=== PATIENT | male | born 1965 | race Hispanic/Latino ===

== ENCOUNTER 2016-11-27 08:01 | Emergency (ER) | payer BC ==
[2016-11-27 08:01] VITALS: BMI 29.6
--- NOTE | 2016-11-27 08:19 | ED PDOC ---
Arrival/HPI - General Chief Complaint: Chest Pain Time Seen by Provider: 11/27/16 08:04 Historian: Patient - History of Present Illness Narrative History of Present Illness (Text): 11/27/16 08:42 A 51 year old male, whose past medical history includes gastritis, IBS and hypothyroidism, presents to the emergency department complaining of epigastric pain that radiated up to the chest x 2 days (November 25). Pain is described as "if someone charged him with a football helmet." He reports that he feels like " food is getting stuck." He notes associated nausea and subjective fevers, but denies any vomiting, diarrhea, shortness of breath, urinary changes or other complaints at this time. Patient mentions pain is similar to previous episodes but is more severe this time. PMD: Dr. Medrano/ Dr. Muse Resin Filterer: Dr. Loera 11/27/16 09:49 11/27/16 14:54 Time/Duration: Other (48 hours) Symptom Onset: Sudden Symptom Course: Unchanged Quality: Other Activities at Onset: Rest Context: Home Past Medical History - Provider Review Nursing Documentation Reviewed: Yes - Infectious Disease Hx of Infectious Diseases: None - Tetanus Immunization Tetanus Immunization: Unknown - Cardiac Hx Cardiac Disorders: Yes Hx Cardiac Arrhythmia: Yes Hx Hypertension: Yes Hx Mitral Valve Prolapse: Yes - Pulmonary Hx Respiratory Disorders: Yes Hx Asthma: Yes - Neurological Hx Neurological Disorder: Yes Hx Dizziness: Yes - HEENT Hx HEENT Disorder: Yes - Renal Hx Renal Disorder: No - Endocrine/Metabolic Hx Endocrine Disorders: Yes Hx Hypothyroidism: Yes - Hematological/Oncological Hx Blood Disorders: No - Integumentary Hx Dermatological Disorder: No - Musculoskeletal/Rheumatological Hx Musculoskeletal Disorders: Yes Hx Falls: Yes Hx Fractures: Yes (left rib) - Gastrointestinal Hx Gastrointestinal Disorders: Yes Hx Gastritis: Yes (w/erosions in esophagus) Hx Gastroesophageal Reflux: Yes Hx Gastrointestinal Ulcer: Yes Other/Comment: H. Pylori, IBS, biliary colic - Genitourinary/Gynecological Hx Genitourinary Disorders: No - Psychiatric Hx Psychophysiologic Disorder: Yes Hx Anxiety: Yes Hx Depression: Yes Hx Substance Use: No Other/Comment: insomnia - Past Surgical History Past Surgical History: No Previous - Surgical History Hx Cardiac Catheterization: Yes - Anesthesia Hx Anesthesia: Yes Hx Anesthesia Reactions: No Hx Malignant Hyperthermia: No - Suicidal Assessment Feels Threatened In Home Enviroment: No Family/Social History - Physician Review Nursing Documentation Reviewed: Yes Family/Social History: Unknown Family HX Smoking Status: Former Smoker Hx Alcohol Use: Yes (OCCASIONAL.LAST DRANK AUGUST 2015 BEER) Hx Substance Use: No Hx Substance Use Treatment: No Allergies/Home Meds Allergies/Adverse Reactions: Allergies aspirin Allergy (Verified 11/27/16 08:08) stomach inflammation stomach inflammation Penicillins Allergy (Verified 11/27/16 08:08) ANAPHYLAXIS Home Medications: Home Meds Medication Instructions Recorded Confirmed ALPRAZolam [Xanax] 0.25 mg PO DAILY 02/08/16 05/08/16 Zolpidem [Ambien] 5 mg PO HS PRN 02/08/16 05/08/16 Pantoprazole Sodium [Protonix] 40 mg PO PRN PRN 05/08/16 05/08/16 Review of Systems - Review of Systems Constitutional: Fevers (subjective) Eyes: absent: Vision Changes ENT: absent: Sinus Congestion Respiratory: absent: SOB, Cough, Sputum, Wheezing Cardiovascular: absent: Chest Pain, Palpitations, Edema, Calf Pain, Orthopnea, Syncope Gastrointestinal: Abdominal Pain, Nausea. absent: Diarrhea, Vomiting Genitourinary Male: Dysuria. absent: Urinary Output Changes Musculoskeletal: absent: Back Pain, Neck Pain Skin: absent: Rash Neurological: absent: Headache, Dizziness Endocrine: absent: Polyuria Psychiatric: absent: Depression Physical Exam Vital Signs Reviewed: Yes Vital Signs Temp Pulse Resp BP Pulse Ox 11/27/16 13:23 67 18 142/75 99 11/27/16 12:08 65 18 149/79 100 11/27/16 10:36 58 L 18 129/77 100 11/27/16 08:27 98.3 F 70 18 127/74 96 Temperature: Afebrile Blood Pressure: Normal Pulse: Regular Respiratory Rate: Normal Appearance: Positive for: Well-Appearing, Non-Toxic, Comfortable Pain Distress: None Mental Status: Positive for: Alert and Oriented X 3 - Systems Exam Head: Present: Atraumatic, Normocephalic Pupils: Present: PERRL Extroacular Muscles: Present: EOMI Conjunctiva: Present: Normal Mouth: Present: Moist Mucous Membranes Neck: Present: Normal Range of Motion Respiratory/Chest: Present: Clear to Auscultation, Good Air Exchange. No: Respiratory Distress, Accessory Muscle Use Cardiovascular: Present: Regular Rate and Rhythm, Normal S1, S2. No: Murmurs Abdomen: Present: Normal Bowel Sounds. No: Tenderness, Distention, Peritoneal Signs, Rebound, Guarding Back: Present: Normal Inspection Upper Extremity: Present: Normal Inspection. No: Cyanosis, Edema Lower Extremity: Present: Normal Inspection. No: Edema Neurological: Present: GCS=15, CN II-XII Intact, Speech Normal Skin: Present: Warm, Dry, Normal Color. No: Rashes Psychiatric: Present: Alert, Oriented x 3, Normal Insight, Normal Concentration Medical Decision Making ED Course and Treatment: 11/27/16 08:42 Impression: A 51 year old male with epigastric pain radiating up to the chest. Considered cardiac but unlikely due to symptoms x 2 days and that it is associated with nausea and epigastric pain. Patient reports hx of similar problems. Physical examination reveals no acute findings. Differential Diagnosis include but are not limited to: GERD vs. ACS vs. gastritis Plan: -- EKG -- Chest X-ray -- Labs -- Pepcid and Aspirin -- Reassess and disposition Prior Visits: Notes and results from previous visits were reviewed. The patient last presented to the emergency department on 05/08/16 for evaluation of abdominal pain, for which he had a Abdomen/Pelvis CT which showed no evidence for bowel herniation, bowel obstruction, colitis, appendicitis or diverticulitis. No gross ureteral stone or obstructive uropathy is visualized. Based on documentation from 02/10/16, Dr. Gandhi performed a echo and nuclear stress test which were negative. Patient also had a cardiac cath in 2012, which disclosed intimal irregularities. Progress Notes: EKG: Ordered, reviewed, and independently interpreted the EKG. Rate : 73 BPM Rhythm : NSR Interpretation : normal intervals; no ST/T changes. 11/27/16 09:26 Abdomen/Pelvis CT ordered. 11/27/16 09:30 Chest X-ray: Creator : Gucci Barrera MD COMPARISON: 02/08/2016 FINDINGS: LUNGS: No active pulmonary disease. PLEURA: No significant pleural effusion identified, no pneumothorax apparent. CARDIOVASCULAR: Normal. OSSEOUS STRUCTURES: No significant abnormalities. VISUALIZED UPPER ABDOMEN: Normal. OTHER FINDINGS: None. IMPRESSION: No active disease. 11/27/16 09:51 Labs including lipase and CMP grossly normal. Trop negative. 11/27/16 10:40 Dr. Muse called about patient. Reports that these symptoms have been persistent x 1 month. Reports if negative workup can be discharged to follow- up with him and GI. 11/27/16 11:06 Abdomen/Pelvis CT: Creator : Kenny Zuñiga MD COMPARISON: 05/08/2016 FINDINGS: LOWER THORAX: Unremarkable. LIVER: Unremarkable. No gross lesion or ductal dilatation. GALLBLADDER AND BILE DUCTS: Unremarkable. PANCREAS: Unremarkable. No gross lesion or ductal dilatation. SPLEEN: Unremarkable. ADRENALS: Unremarkable. No mass. KIDNEYS AND URETERS: 10 mm cortical cyst lower pole right kidney. Unchanged. No other renal mass. No renal calculus or hydronephrosis. VASCULATURE: Unremarkable. No aortic aneurysm. BOWEL: Scattered colonic diverticulae. No bowel obstruction. APPENDIX: Normal appendix. PERITONEUM: Unremarkable. No free fluid. No free air. LYMPH NODES: Unremarkable. No enlarged lymph nodes. BLADDER: Unremarkable. REPRODUCTIVE: Normal prostate BONES: No acute fracture. OTHER FINDINGS: None. IMPRESSION: Unremarkable abdominal/ pelvic CT. Stable small right lower pole renal cortical cyst. Scattered colonic diverticulae. Otherwise unremarkable. Bone of the about so among capping the nodes up 11/27/16 11:15 Abdominal ultrasound from 11/10/16 is "unremarkable study." Endoscopy from shows reflux esophagitis, gastritis, duodenitis and reflux 11/27/16 11:20 Patient notes persistent pain. He states he is compliant Protonix and Prilosec but it is not helping him. He says pain is currently under bilateral sides of the diaphragm. Will order u/s to r/o biliary colic. 11/27/16 13:10 Abdomen Ultrasound: Creator : Kenny Zuñiga MD COMPARISON: None. FINDINGS: LIVER: Measures 14.0 cm. Normal echogenicity of the liver parenchyma. No mass. No intrahepatic bile duct dilatation. GALLBLADDER: Unremarkable. No gallstones. COMMON BILE DUCT: Measures 3 mm. No stones. No dilatation. PANCREAS: Unremarkable as visualized. No mass. No ductal dilatation. RIGHT KIDNEY: Measures 10.7cm. Normal echogenicity. No calculus, mass, or hydronephrosis. LEFT KIDNEY: Measures 10.1cm. Normal echogenicity. No calculus, mass, or hydronephrosis. SPLEEN: Normal in size and contour. No mass. AORTA: No aneurysmal dilatation. IVC: Unremarkable. OTHER FINDINGS: None. IMPRESSION: Unremarkable abdominal sonogram. Patient is tolerating po. Had extensive conversation with patinet and he admits that these symptoms have been persistent x months. He has GI and PMD follow-up. (Dr. Muse tomorrow and GI on thursday). He was also instructed on the importance of regular cardiac follow-up. He reports that he will continue prevacid and protonix and eating appropriate diet. - Lab Interpretations Lab Results: 11/27/16 08:40 11/27/16 08:40 Lab Results 11/27/16 08:40: Sodium 137, Potassium 4.1, Chloride 100, Carbon Dioxide 25, Anion Gap 16, BUN 12, Creatinine 0.9, Est GFR ( Amer) > 60, Est GFR (Non- Af Amer) > 60, Random Glucose 141 H, Calcium 9.4, Phosphorus 3.0, Magnesium 2.0 , Total Bilirubin 0.9, AST 25, ALT 32, Alkaline Phosphatase 25 L, Total Creatine Kinase 60, Troponin I < 0.01, Total Protein 8.4 H, Albumin 4.4, Globulin 4.0, Albumin/Globulin Ratio 1.1, Lipase 42 11/27/16 08:40: WBC 9.2, RBC 5.16, Hgb 15.1, Hct 43.8, MCV 84.9, MCH 29.3, MCHC 34.5, RDW 12.5, Plt Count 229, MPV 10.1, Gran % 79.0 H, Lymph % (Auto) 15.4 L, [place] % (Auto) 5.0, Eos % (Auto) 0.4 L, Baso % (Auto) 0.2, Gran # 7.24 H, Lymph # 1.4, [place] # 0.5, Eos # 0.0, Baso # 0.02 I have reviewed the lab results: Yes - RAD Interpretation Radiology Orders: 11/27/16 08:28 CHEST PORTABLE [RAD] Stat 11/27/16 09:26 ABD & PELVIS IV CONTRAST ONLY [CT] Stat 11/27/16 11:21 ABDOMEN COMPLETE [US] Stat - Medication Orders Current Medication Orders: Discontinued Medications Al Hydrox/Mg Hydrox/Simethicone (Maalox Plus 30 Ml) 30 ml PO STAT STA Stop: 11/27/16 11:14 Last Admin: 11/27/16 11:48 Dose: 30 ml Aspirin (Aspirin Chewable) 324 mg PO STAT STA Stop: 11/27/16 08:29 Last Admin: 11/27/16 08:50 Dose: 324 mg Famotidine (Pepcid) 20 mg IVP STAT STA Stop: 11/27/16 08:30 Last Admin: 11/27/16 08:49 Dose: 20 mg Iohexol (Omnipaque 350 100 Ml) Confirm Administered Dose 350 mg .ROUTE .STK-MED ONE Stop: 11/27/16 09:30 Ondansetron HCl (Zofran Inj) 4 mg IVP STAT STA Stop: 11/27/16 09:04 Last Admin: 11/27/16 09:24 Dose: 4 mg - Renaibe Statement The provider has reviewed the documentation as recorded by the Eric Parson Provider Scribe Attestation: All medical record entries made by the Eric were at my direction and personally dictated by me. I have reviewed the chart and agree that the record accurately reflects my personal performance of the history, physical exam, medical decision making, and the department course for this patient. I have also personally directed, reviewed, and agree with the discharge instructions and disposition. Disposition/Present on Arrival - Present on Arrival Any Indicators Present on Arrival: No History of DVT/PE: No History of Uncontrolled Diabetes: No Urinary Catheter: No History of Decub. Ulcer: No History Surgical Site Infection Following: None - Disposition Have Diagnosis and Disposition been Completed?: Yes Diagnosis: Gastritis Disposition: HOME/ ROUTINE Disposition Time: 13:11 Patient Plan: Discharge Condition: GOOD Discharge Instructions (ExitCare): Gastritis (ED), Diet for Ulcers and Gastritis (ED), Gastroesophageal Reflux Disease (ED) Additional Instructions: Follow up with Dr. Muse within 2 days. Follow-up with GI within 2 days. Return to emergency department if condition worsens. Take medications as prescribed.
[2016-11-27 08:30] VITALS: RESP 18; TEMP 98.3
[2016-11-27 08:58] LABS: BASO # 0.02 K/mm3 (0.0-2.0); BASO % 0.2 % (0.0-3.0); EOS % 0.4 % (1.5-5.0); GRAN # 7.24 (1.4-6.5); HEMOGLOBIN 15.1 gm/dL (14.0-18.0); LYMPH # 1.4 (1.2-3.4); LYMPH % 15.4 % (22.0-35.0); MEAN CELL VOLUME 84.9 fL (80.0-105.0); MEAN CORPUSCULAR HEMOGLOBIN 29.3 pg (25.0-35.0); MEAN CORPUSCULAR HGB CONC 34.5 g/dl (31.0-37.0); MEAN PLATELET VOLUME 10.1 fl (7.0-11.0); MONO # 0.5 (0.1-0.6); PLATELET COUNT 229 10^3/uL (120.0-450.0); RBC 5.16 10^6/uL (3.5-6.1); RED CELL DISTRIBUTION WIDTH 12.5 % (11.5-14.5); WHITE BLOOD COUNT 9.2 10^3/ul (4.5-11.0)
[2016-11-27 09:02] LABS: ALB/GLOB RATIO 1.1 (1.1-1.8); ALBUMIN 4.4 g/dL (3.0-4.8); ALT/SGPT 32 U/L (7-56); AST/SGOT 25 U/L (15-59); BLOOD UREA NITROGEN 12 mg/dL (7-21); CALCIUM 9.4 mg/dL (8.4-10.5); GFR AFRICAN-AMERICAN > 60; GFR NON-AFRICAN AMERICAN > 60; LIPASE 42 U/L (23-300)
[2016-11-27 09:21] LABS: TROPONIN I < 0.01 ng/mL
[2016-11-27] MEDS ORDERED: Iohexol 350 MG/100 ML VIAL ONE (09:29)
--- NOTE | 2016-11-27 09:29 | RAD ---
HISTORY: epigastric pain COMPARISON: 02/08/2016 FINDINGS: LUNGS: No active pulmonary disease. PLEURA: No significant pleural effusion identified, no pneumothorax apparent. CARDIOVASCULAR: Normal. OSSEOUS STRUCTURES: No significant abnormalities. VISUALIZED UPPER ABDOMEN: Normal. OTHER FINDINGS: None. IMPRESSION: No active disease.
[2016-11-27] MEDS ORDERED: Alum-Mag Hydrox-Simethicone Susp (30 mL) PO STA (11:13)
--- NOTE | 2016-11-27 12:43 | CT ---
PROCEDURE: CT Abdomen and Pelvis with contrast HISTORY: epigastric pain COMPARISON: 05/08/2016 TECHNIQUE: Contrast dose: 100 mL Omnipaque 350 Radiation dose: Total exam DLP = 890.93 mGy-cm. This CT exam was performed using one or more of the following dose reduction techniques: Automated exposure control, adjustment of the mA and/or kV according to patient size, and/or use of iterative reconstruction technique. FINDINGS: LOWER THORAX: Unremarkable. LIVER: Unremarkable. No gross lesion or ductal dilatation. GALLBLADDER AND BILE DUCTS: Unremarkable. PANCREAS: Unremarkable. No gross lesion or ductal dilatation. SPLEEN: Unremarkable. ADRENALS: Unremarkable. No mass. KIDNEYS AND URETERS: 10 mm cortical cyst lower pole right kidney. Unchanged. No other renal mass. No renal calculus or hydronephrosis. VASCULATURE: Unremarkable. No aortic aneurysm. BOWEL: Scattered colonic diverticulae. No bowel obstruction. APPENDIX: Normal appendix. PERITONEUM: Unremarkable. No free fluid. No free air. LYMPH NODES: Unremarkable. No enlarged lymph nodes. BLADDER: Unremarkable. REPRODUCTIVE: Normal prostate BONES: No acute fracture. OTHER FINDINGS: None. IMPRESSION: Unremarkable abdominal/ pelvic CT. Stable small right lower pole renal cortical cyst. Scattered colonic diverticulae. Otherwise unremarkable. Bone of the about so among capping the nodes up
--- NOTE | 2016-11-27 12:57 | US ---
HISTORY: RUQ pain COMPARISON: None. TECHNIQUE: Sonographic evaluation of the abdomen. FINDINGS: LIVER: Measures 14.0 cm. Normal echogenicity of the liver parenchyma. No mass. No intrahepatic bile duct dilatation. GALLBLADDER: Unremarkable. No gallstones. COMMON BILE DUCT: Measures 3 mm. No stones. No dilatation. PANCREAS: Unremarkable as visualized. No mass. No ductal dilatation. RIGHT KIDNEY: Measures 10.7cm. Normal echogenicity. No calculus, mass, or hydronephrosis. LEFT KIDNEY: Measures 10.1cm. Normal echogenicity. No calculus, mass, or hydronephrosis. SPLEEN: Normal in size and contour. No mass. AORTA: No aneurysmal dilatation. IVC: Unremarkable. OTHER FINDINGS: None. IMPRESSION: Unremarkable abdominal sonogram.
[2016-11-27 13:28] VITALS: BP 142/75; PULSE 67; O2SAT 99
--- NOTE | 2016-11-28 10:02 | CARD ---
APPROVED REPORT EKG Measurement Heart [id number] <Conclusion> Normal sinus rhythm Normal ECG No change
== END 2016-11-27 13:23 | disposition home or self-care (01) ==
LOC: ED 08:01
DX: K29.70 Gastritis, unspecified, without bleeding (principal); K21.9 Gastro-esophageal reflux disease without esophagitis; I10 Essential (primary) hypertension; I34.1 Nonrheumatic mitral (valve) prolapse; Z87.891 Personal history of nicotine dependence
CPT/HCPCS: 71010; 74177; 76700; 80053; 82550; 83690; 83735; 84100; 84484; 85025; 93005; 96374; 96375; 99285; J2405; Q9967

== ENCOUNTER 2017-02-13 13:42 | Inpatient (IN) | payer BC ==
--- NOTE | 2017-02-13 14:02 | ED PDOC ---
Arrival/HPI - General Chief Complaint: Psychiatric Evaluation Time Seen by Provider: 02/13/17 13:59 Historian: Patient - History of Present Illness Narrative History of Present Illness (Text): 02/13/17 14:02 51 y/o male, pmh htn and gerd, psychiatric history including anxiety/depression/ insomnia, allergic to aspirin and penicillin, c/o anxiety/depression and insomnia x 1 week. Pt. stated that he has been having difficulty sleeping as he feels anxious and depression for the past 1 week, used to be on the ambien which his psychiatrist change to the temazepem for the past 2 months with no relief. Pt. stated that he just wants to sleeping, no chest pain or shortness of breath, no homicidal or suicidal ideation, no auditory or visual hallucination, no other medical or psychological complaints. Past Medical History - Provider Review Nursing Documentation Reviewed: Yes - Infectious Disease Hx of Infectious Diseases: None - Tetanus Immunization Tetanus Immunization: Unknown - Cardiac Hx Cardiac Disorders: Yes Hx Cardiac Arrhythmia: Yes Hx Hypertension: Yes Hx Mitral Valve Prolapse: Yes - Pulmonary Hx Respiratory Disorders: Yes Hx Asthma: Yes - Neurological Hx Neurological Disorder: Yes Hx Dizziness: Yes - HEENT Hx HEENT Disorder: Yes - Renal Hx Renal Disorder: No - Endocrine/Metabolic Hx Endocrine Disorders: Yes Hx Hypothyroidism: Yes - Hematological/Oncological Hx Blood Disorders: No - Integumentary Hx Dermatological Disorder: No - Musculoskeletal/Rheumatological Hx Musculoskeletal Disorders: Yes Hx Falls: Yes Hx Fractures: Yes (left rib) - Gastrointestinal Hx Gastrointestinal Disorders: Yes Hx Gastritis: Yes (w/erosions in esophagus) Hx Gastroesophageal Reflux: Yes Hx Gastrointestinal Ulcer: Yes Other/Comment: H. Pylori, IBS, biliary colic - Genitourinary/Gynecological Hx Genitourinary Disorders: No - Psychiatric Hx Psychophysiologic Disorder: Yes Hx Anxiety: Yes Hx Depression: Yes Hx Substance Use: No Other/Comment: insomnia - Past Surgical History Past Surgical History: No Previous - Surgical History Hx Cardiac Catheterization: Yes - Anesthesia Hx Anesthesia: Yes Hx Anesthesia Reactions: No Hx Malignant Hyperthermia: No - Suicidal Assessment Feels Threatened In Home Enviroment: No Family/Social History - Physician Review Nursing Documentation Reviewed: Yes Family/Social History: Unknown Family HX Smoking Status: Former Smoker Hx Alcohol Use: Yes (OCCASIONAL.LAST DRANK AUGUST 2015 BEER) Hx Substance Use: No Hx Substance Use Treatment: No Allergies/Home Meds Allergies/Adverse Reactions: Allergies aspirin Allergy (Verified 11/27/16 08:08) stomach inflammation stomach inflammation Penicillins Allergy (Verified 11/27/16 08:08) ANAPHYLAXIS Home Medications: Home Meds Medication Instructions Recorded Confirmed ALPRAZolam [Xanax] 0.25 mg PO DAILY 02/08/16 02/13/17 Famotidine [Pepcid] 1 tab PO DAILY PRN 02/13/17 02/13/17 Pantoprazole Sodium [Protonix] 1 tab PO DAILY PRN 02/13/17 02/13/17 Temazepam [Restoril] 1 cap PO HS 02/13/17 02/13/17 clonazePAM [Klonopin] 1 tab PO DAILY 02/13/17 02/13/17 Review of Systems - Review of Systems Constitutional: absent: Fatigue, Fevers Eyes: absent: Vision Changes ENT: absent: Hearing Changes Respiratory: absent: SOB, Cough Cardiovascular: absent: Chest Pain Gastrointestinal: absent: Abdominal Pain, Diarrhea, Nausea, Vomiting Skin: absent: Rash, Pruritis Neurological: absent: Headache Psychiatric: Anxiety, Depression, Other (insomnia). absent: Suicidal Ideation Physical Exam Vital Signs Reviewed: Yes Vital Signs Temp Pulse Resp BP Pulse Ox 02/13/17 14:04 98.5 F 82 18 132/90 97 Temperature: Afebrile Blood Pressure: Normal Pulse: Regular Respiratory Rate: Normal Appearance: Positive for: Well-Appearing, Non-Toxic, Comfortable Pain Distress: None Mental Status: Positive for: Alert and Oriented X 3 - Systems Exam Head: Present: Atraumatic, Normocephalic Pupils: Present: PERRL Extroacular Muscles: Present: EOMI Conjunctiva: Present: Normal Mouth: Present: Moist Mucous Membranes Neck: Present: Normal Range of Motion Respiratory/Chest: Present: Clear to Auscultation, Good Air Exchange. No: Respiratory Distress, Accessory Muscle Use Cardiovascular: Present: Regular Rate and Rhythm, Normal S1, S2. No: Murmurs Abdomen: Present: Normal Bowel Sounds. No: Tenderness, Distention, Peritoneal Signs Back: Present: Normal Inspection Upper Extremity: Present: Normal Inspection. No: Cyanosis, Edema Lower Extremity: Present: Normal Inspection. No: Edema Neurological: Present: GCS=15, Speech Normal, Motor Func Grossly Intact, Gait Normal, Memory Normal Skin: Present: Warm, Dry, Normal Color. No: Rashes Psychiatric: Present: Alert, Oriented x 3, Normal Insight, Normal Concentration Medical Decision Making ED Course and Treatment: 02/13/17 14:29 -labs/ua -ekg/cxr -PES paged 02/13/17 15:33 -Labs are non-significant -UA show no UTI -Drug screen show +benzo -Chest x-ray: no active disease -EKG: NSR @ 66 BPM, no ST elevation or depression, no T wave inversion. -Pt. is medically clear and stable for the PES evaluation. -Pt. evaluated by the PES Miriam, dx depression, require inpatient admission treatment to the psychiatric floor. -Case discussed with DR. Vaca, he will put in the admission order. -Pt. agreed to be admitted. - Lab Interpretations Lab Results: 02/13/17 14:11 02/13/17 14:11 Lab Results 02/13/17 15:41: Urine Color Yellow, Urine Appearance Clear, Urine pH 6.0, Ur Specific [place] 1.015, Urine Protein Negative, Urine Glucose (UA) Negative, Urine Ketones Negative, Urine Blood Trace-intact H, Urine Nitrate Negative, Urine Bilirubin Negative, Urine Urobilinogen 0.2, Ur Leukocyte Esterase Negative , Urine RBC Pending, Urine WBC Pending 02/13/17 14:11: WBC 6.3 D, RBC 4.84, Hgb 14.0, Hct 40.3 L, MCV 83.3, MCH 28.9, MCHC 34.7, RDW 12.8, Plt Count 232, MPV 9.6, Gran % 66.3, Lymph % (Auto) 24.0, [place] % (Auto) 9.1 H, Eos % (Auto) 0.3 L, Baso % (Auto) 0.3, Gran # 4.17, Lymph # 1.5, [place] # 0.6, Eos # 0.0, Baso # 0.02 02/13/17 14:11: Salicylates < 1 L, Acetaminophen < 10.0 L 02/13/17 14:11: Free T4 1.15, TSH 3rd Generation 1.67, Alcohol, Quantitative < 10 02/13/17 14:11: Urine Opiates Screen Negative, Urine Methadone Screen Negative, Ur Barbiturates Screen Negative, Ur Phencyclidine Scrn Negative, Ur Amphetamines Screen Negative, U Benzodiazepines Scrn Positive H, U Oth Cocaine Metabols Negative, U Cannabinoids Screen Negative 02/13/17 14:11: Sodium 140, Potassium 3.9, Chloride 104, Carbon Dioxide 24, Anion Gap 16, BUN 8, Creatinine 0.8, Est GFR ( Amer) > 60, Est GFR (Non- Af Amer) > 60, Random Glucose 120 H, Calcium 9.4, Total Bilirubin 0.4, AST 20, ALT 26, Alkaline Phosphatase 25 L, Total Protein 7.6, Albumin 4.2, Globulin 3.4 , Albumin/Globulin Ratio 1.2 I have reviewed the lab results: Yes Interpretation: No clinic. lab abnormalty - RAD Interpretation Radiology Orders: 02/13/17 14:14 CHEST PORTABLE [RAD] Stat no active pulmonary disease Order Make Up Clerk: Radiologist - EKG Interpretation EKG Interpretation (Text): 02/13/17 15:14 -EKG: NSR @ 66 BPM, no ST elevation or depression, no T wave inversion. Interpreted by ED Physician: Yes Type: 12 lead EKG - PA / INSTRUCTOR [employer]OLLEY [employer] / Resident Statement MD/DO has reviewed & agrees with the documentation as recorded. Disposition/Present on Arrival - Present on Arrival Any Indicators Present on Arrival: No History of DVT/PE: No History of Uncontrolled Diabetes: No Urinary Catheter: No History of Decub. Ulcer: No History Surgical Site Infection Following: None - Disposition Have Diagnosis and Disposition been Completed?: Yes Diagnosis: Major depression Disposition: HOSPITALIZED Disposition Time: 15:15 Patient Plan: Admission Patient Problems: Current Active Problems Problem Status Onset Major depression Acute Condition: FAIR Referrals: PCP,NO [Primary Care Provider] - Follow up with primary Forms: [employer] (Croatian)
[2017-02-13 14:05] VITALS: BMI 27.3
[2017-02-13 14:44] LABS: BASO # 0.02 K/mm3 (0.0-2.0); BASO % 0.3 % (0.0-3.0); EOS % 0.3 % (1.5-5.0); GRAN # 4.17 (1.4-6.5); GRAN % 66.3 % (50.0-68.0); HEMATOCRIT 40.3 % (42.0-52.0); LYMPH # 1.5 (1.2-3.4); MEAN CELL VOLUME 83.3 fl (80.0-105.0); MEAN CORPUSCULAR HEMOGLOBIN 28.9 pg (25.0-35.0); MEAN CORPUSCULAR HGB CONC 34.7 g/dl (31.0-37.0); MEAN PLATELET VOLUME 9.6 fl (7.0-11.0); MONO # 0.6 (0.1-0.6); MONO % 9.1 % (1.0-6.0); RED CELL DISTRIBUTION WIDTH 12.8 % (11.5-14.5); WHITE BLOOD COUNT 6.3 10^3/ul (4.5-11.0)
[2017-02-13 14:56] LABS: ALB/GLOB RATIO 1.2 (1.1-1.8); ALKALINE PHOSPHATASE 25 U/L (38-126); ALT/SGPT 26 U/L (7-56); AST/SGOT 20 U/L (17-59); BILIRUBIN,TOTAL 0.4 mg/dL (0.2-1.3); BLOOD UREA NITROGEN 8 mg/dL (7-21); CALCIUM 9.4 mg/dL (8.4-10.5); CARBON DIOXIDE 24 mmol/L (21-33); CHLORIDE 104 mmol/L (98-107); GFR AFRICAN-AMERICAN > 60; GLUCOSE,RANDOM 120 mg/dL (70-110); POTASSIUM 3.9 mmol/L (3.6-5.0); SODIUM 140 mmol/L (132-148); TOTAL PROTEIN 7.6 g/dL (5.8-8.3)
[2017-02-13 15:05] LABS: ALCOHOL SERUM < 10 mg/dL (0-10)
[2017-02-13 15:13] LABS: FREE T4 1.15 ng/dL (0.78-2.19)
--- NOTE | 2017-02-13 15:23 | RAD ---
HISTORY: medical clearance COMPARISON: 11/27/2016 FINDINGS: LUNGS: No active pulmonary disease. PLEURA: No significant pleural effusion identified, no pneumothorax apparent. CARDIOVASCULAR: Normal. OSSEOUS STRUCTURES: No significant abnormalities. VISUALIZED UPPER ABDOMEN: Normal. OTHER FINDINGS: None. IMPRESSION: No active pulmonary disease.
[2017-02-13 15:27] LABS: THYROID STIMULATING HORMONE 1.67 mIU/mL (0.46-4.68)
[2017-02-13 15:43] LABS: URINE BILIRUBIN NEGATIVE (NEGATIVE); URINE BLOOD TRACE-INTACT (NEGATIVE); URINE GLUCOSE (UA) NEGATIVE (NEGATIVE); URINE KETONE NEGATIVE (NEGATIVE); URINE LEUKOCYTE ESTERASE NEGATIVE Leu/uL (NEGATIVE); URINE PROTEIN NEGATIVE mg/dL (<30 mg/dL); URINE UROBILINOGEN 0.2 E.U./dL (<1 E.U./dL)
[2017-02-13 15:44] LABS: URINE APPEARANCE CLEAR (CLEAR); URINE COLOR YELLOW (YELLOW)
[2017-02-13 16:39] LABS: URINE BACTERIA FEW (NEG); URINE WBC 0 - 2 /hpf (0-6)
--- NOTE | 2017-02-13 18:16 | PCM.BM ---
Treatment Plan Problems - Problems identified on initial assessmt feeling of worthlessness Date Initiated: 02/13/17 Time Initiated: 18:00 Assessment reference: NA Status: Active Priority: 1 hopelessness/helplessness Date Initiated: 02/13/17 Time Initiated: 18:00 Assessment reference: NA Status: Active Priority: 2 altererd sleep pattern Date Initiated: 02/13/17 Time Initiated: 18:00 Assessment reference: NA Status: Active Priority: 3 ineffective coping Date Initiated: 02/13/17 Time Initiated: 18:00 Assessment reference: NA Status: Active Priority: 4 social isolation Date Initiated: 02/13/17 Time Initiated: 18:00 Assessment reference: NA Status: Active Priority: 5 Treatment assets and liabiliti Patient Assests: cooperative, ADL independent, negotiates basic needs Patient Liabilities: live alone, poor support system - Milieu Protocol Maintain good personal hygiene: daily Encourage regular showers, daily Remind patient to perform daily oral care, daily Assist patient to perform ADL's Conduct patient checks and document Observation sheet: Q15 minutes Maintain personal safety: every shift Educate patient to report safety concerns to staff, every shift Monitor environment for contraband/sharps Medication safety: Monitor for expected outcome, potential side effects: every shift, Assess barriers to learning: every shift, Assess readiness for medication education: every shift Family Contact - Goals for Treatment Patient goals for treatment: adjustment of his medication Discharge/Continuing Care - Education Needs Education Needs: Patient Medication, Patient Diagnosis/Disease Process, Patient Coping Skills, Patient Community resources - Discharge Discharge Criteria: Tolerates medication w/o severe side effects, Normal sleep pattern
[2017-02-13] MEDS ORDERED: Alum-Mag Hydrox-Simethicone Susp (30 mL) PO PRN (19:40)
[2017-02-14] MEDS: Pantoprazole 40 mg EC Tab PO SCH (06:51)
[2017-02-14 07:57] LABS: CHOLESTEROL 203 mg/dL (130-200); GLUCOSE,FASTING 95 mg/dL (65-110)
[2017-02-14 08:08] LABS: FREE T4 1.23 ng/dL (0.78-2.19)
[2017-02-14 08:22] LABS: THYROID STIMULATING HORMONE 1.6 mIU/mL (0.46-4.68)
--- NOTE | 2017-02-14 08:51 | PCM.PSYCH ---
Initial Psychiatric Evaluation - Initial Psychiatric Evaluation Type of Admission: Voluntary Legal Status: Capacity History of Present Illness and Precipitating Events: Patient is a 51 y/o single white male with history of depression and anxiety, no prior psychiatric admissions, no history of SA, in outpatient treatment with Dr. Gómez Diggs x 1 month, compliant with prescribed Xanax and Restoril who presented to ER complaining of anxiety and depression and unrelenting insomnia for the past week. I met with patient to bed so and he is calm, cooperative and well oriented to month, year, location and circumstances. Grooming is adequate. Patient reports that he has been depressed with symptoms of lability anhedonia, insomnia, crying spells, poor frustration tolerance and hopelessness. 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 Major stressors include his concern over his medical health. He feels that his anxiety in this respect is overwhelming, debilitating and out of control. Patient has been taking xanax and restoril with minimal improvement for the past month. Sleep was still restless last night with currently prescribed medications on the unit however he denies any side effects. Thought process is generally coherent and affect is constricted. Patient denies any perceptual disturbance and he is not suicidal or homicidal. Delusions we're not elicited. There were no behavioral issues overnight. PSYCHIATRIC HISTORY No prior psychiatric hospitalizations No history of suicide attempts. Patient has been in psychiatric care with Dr. Gómez Diggs x1 month. Prescribed xanax and restoril. SOCIAL HISTORY Born and raised in [place]. Patient is single and he has no children. He lives by himself in an apartment. He graduated high school. 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 Patient has applied for disability. Patient denies any tobacco drug or alcohol use. . Current Medications: Active Medications Generic Name Dose Route Start Last Admin Trade Name Freq PRN Reason Stop Dose Admin Acetaminophen 650 mg 02/13/17 16:57 02/13/17 18:52 Tylenol 325mg Tab PO 650 mg Q6H PRN Administration Pain, moderate (4-7) Al Hydrox/Mg Hydrox/Simethicone 30 ml 02/13/17 19:40 02/13/17 20:19 Maalox Plus 30 Ml PO 30 ml DAILY PRN Administration Indigestion / Heartburn Clonazepam 0.5 mg 02/13/17 22:00 02/13/17 22:19 Klonopin PO 0.5 mg [facility] LILIANE Administration Protocol Lorazepam 2 mg 02/13/17 18:17 Ativan PO Q8H PRN Anxiety Protocol Lorazepam 2 mg 02/13/17 18:19 Ativan IM Q8H PRN Agitation Protocol Mirtazapine 30 mg 02/13/17 22:00 02/13/17 22:19 Remeron PO 30 mg HS LILIANE Administration Pantoprazole Sodium 40 mg 02/14/17 07:00 Protonix Ec Tab PO 0700 LILIANE Ziprasidone 20 mg 02/13/17 18:18 Geodon Inj IM Q8 PRN Agitation Protocol Past Psychiatric History - Past Psychiatric History Pertinent Medical Hx (Current Medical&Sleep Prob, Allergies): Allergies Allergy/AdvReac Type Severity Reaction Status Date / Time aspirin Allergy stomach Verified 02/13/17 18:23 inflammation Penicillins Allergy ANAPHYLAXIS Verified 02/13/17 18:23 ALPRAZolam [Xanax] 0.25 mg PO DAILY 02/08/16 Sucralfate [Carafate] 1 gm PO TID #6 dose 05/08/16 Famotidine [Pepcid] 1 tab PO DAILY PRN 02/13/17 Pantoprazole Sodium [Protonix] 1 tab PO DAILY PRN 02/13/17 Temazepam [Restoril] 1 cap PO HS 02/13/17 clonazePAM [Klonopin] 1 tab PO DAILY 02/13/17 Mental Status Examination - Personal Presentation Personal Presentation: Looks stated age - Affect Affect: Constricted - Motor Activity Motor Activity: Calm - Reliability in Providing Information Reliability in Providing Information: Fair - Speech Speech: Organized - Mood Mood: Depressed, Anxious - Formal Thought Process Formal Thought Process: No Impairment - Obsessions/Compulsions Obsessions: Yes (MEDICAL PROBLEMS) - Cognitive Functions Orientation: Person, Place, Situation Sensorium: Alert Attention/Concentration: Attentive Estimate of Intelligence: Average Judgement: Imparied, as evidence by: Lack of insight into illness - Risk Risk: Diminished functioning DSM 5 DX - DSM 5 DSM 5 Diagnosis: Major Depression, Severe DEUCE - Recommended/Plan of Treatment Treatment Recommendations and Plan of Treatment: * group, milieu and supportive tx * klonopin 0.5 mg AMHS for anxiety * remeron 30 mg HS for depression and insomnia * Awaiting medical consult * Vitals reviewed and noted below: Selected Entries 02/13/17 02/13/17 02/13/17 14:04 16:26 18:11 Temperature 98.5 F 98.7 F Pulse Rate 82 65 63 Respiratory 18 18 18 Rate Blood Pressure 132/90 129/80 136/100 H O2 Sat by Pulse 97 99 Oximetry ER LABS AND STUDIES 02/13/17 15:33 -Chest x-ray: no active disease -EKG: NSR @ 66 BPM, no ST elevation or depression, no T wave inversion. 02/13/17 15:41: Urine Color Yellow, Urine Appearance Clear, Urine pH 6.0, Ur Specific [place] 1.015, Urine Protein Negative, Urine Glucose (UA) Negative, Urine Ketones Negative, Urine Blood Trace-intact H, Urine Nitrate Negative, Urine Bilirubin Negative, Urine Urobilinogen 0.2, Ur Leukocyte Esterase Negative , Urine RBC Pending, Urine WBC Pending 02/13/17 14:11: WBC 6.3 D, RBC 4.84, Hgb 14.0, Hct 40.3 L, MCV 83.3, MCH 28.9, MCHC 34.7, RDW 12.8, Plt Count 232, MPV 9.6, Gran % 66.3, Lymph % (Auto) 24.0, [place] % (Auto) 9.1 H, Eos % (Auto) 0.3 L, Baso % (Auto) 0.3, Gran # 4.17, Lymph # 1.5, [place] # 0.6, Eos # 0.0, Baso # 0.02 02/13/17 14:11: Salicylates < 1 L, Acetaminophen < 10.0 L 02/13/17 14:11: Free T4 1.15, TSH 3rd Generation 1.67, Alcohol, Quantitative < 10 02/13/17 14:11: Urine Opiates Screen Negative, Urine Methadone Screen Negative, Ur Barbiturates Screen Negative, Ur Phencyclidine Scrn Negative, Ur Amphetamines Screen Negative, U Benzodiazepines Scrn Positive H, U Oth Cocaine Metabols Negative, U Cannabinoids Screen Negative 02/13/17 14:11: Sodium 140, Potassium 3.9, Chloride 104, Carbon Dioxide 24, Anion Gap 16, BUN 8, Creatinine 0.8, Est GFR ( Amer) > 60, Est GFR (Non- Af Amer) > 60, Random Glucose 120 H, Calcium 9.4, Total Bilirubin 0.4, AST 20, ALT 26, Alkaline Phosphatase 25 L, Total Protein 7.6, Albumin 4.2, Globulin 3.4 , Albumin/Globulin Ratio 1.2 FLOOR LABS 02/14/17 02/14/17 07:20 07:20 Fasting Glucose 95 Triglycerides 143 Cholesterol 203 H LDL Cholesterol Direct 144 H HDL Cholesterol 36 Free T4 1.23 TSH 3rd Generation 1.60 - Smoking Cessation Smoking Cessation Initiated: No Reason for not providing: PATIENT DENIES TOBACCO USE
--- NOTE | 2017-02-14 19:34 | CARD ---
APPROVED REPORT EKG Measurement Heart [id number] <Conclusion> Sinus rhythm with marked sinus arrhythmia Otherwise normal ECG
[2017-02-14] MEDS: Hydrocortisone 2.5% Rectal Cream(30 gm) PR SCH (21:36)
[2017-02-14] MEDS: POLYETHYLENE GLYCOL 3350 17 GM/Dose PACKET PO SCH (21:37)
[2017-02-15 06:54] VITALS: O2SAT 100
[2017-02-15] MEDS: Pantoprazole 40 mg EC Tab PO SCH (07:52)
[2017-02-15] MEDS: POLYETHYLENE GLYCOL 3350 17 GM/Dose PACKET PO SCH ×2 (08:10→16:33)
--- NOTE | 2017-02-15 08:57 | PCM.PYCHPN ---
Psychiatric Progress Note - Psychiatric Progress Note Patient seen today, length of contact: 25 min Patient Chief Complaint: "depressed" Problems Identified/Issues Discussed: History of Present Illness and Precipitating Events: Patient is a 51 y/o single white male with history of depression and anxiety, no prior psychiatric admissions, no history of SA, in outpatient treatment with Dr. Gómez Diggs x 1 month, compliant with prescribed Xanax and Restoril who presented to ER complaining of anxiety and depression and unrelenting insomnia for the past week. I met with patient to bed so and he is calm, cooperative and well oriented to month, year, location and circumstances. Grooming is adequate. Patient reports that he has been depressed with symptoms of lability anhedonia, insomnia, crying spells, poor frustration tolerance and hopelessness. 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 Major stressors include his concern over his medical health. He feels that his anxiety in this respect is overwhelming, debilitating and out of control. Patient has been taking xanax and restoril with minimal improvement for the past month. Sleep was still restless last night with currently prescribed medications on the unit however he denies any side effects. Thought process is generally coherent and affect is constricted. Patient denies any perceptual disturbance and he is not suicidal or homicidal. Delusions we're not elicited. There were no behavioral issues overnight. PSYCHIATRIC HISTORY No prior psychiatric hospitalizations No history of suicide attempts. Patient has been in psychiatric care with Dr. Gómez Diggs x1 month. Prescribed xanax and restoril. SOCIAL HISTORY Born and raised in [place]. Patient is single and he has no children. He lives by himself in an apartment. He graduated high school. 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 Patient has applied for disability. Patient denies any tobacco drug or alcohol use. ~~~~~~~~~~~~~~~~~~ I reviewed recent notes and met with patient at bedside. Patient remains well- oriented to circumstances and cooperative with questioning. He is depressed and continues to deny any suicidal thoughts. Future oriented, patient reports motivation to take care of some financial responsibilities upon discharge. His thought process remains clear and connected. Responses are relevant to questioning. He denies any perceptual disturbance. Patient is tolerating his medications and denies any new discomfort or pain. Staff notes indicate that patient has been calm pleasant and cooperative. There were no behavioral issues overnight. Diagnostic Results: Major Depression, Severe DEUCE Medication Change: No Medical Record Reviewed: Yes Mental Status Examination - Cognitive Function Orientation: Person, Place, Situation Attention: WNL Concentration: WNL Association: WNL Fund of Knowledge: WNL - Mood Mood: Depressed, Anxious - Affect Affect: Constricted - Speech Speech: Appropriate - Formal Thought Process Formal Thought Process: No Impairment - Suicidal Ideation Suicidal Ideation: No - Homicidal Ideation Homicidal Ideation: No Goal/Treatment Plan - Goal/Treatment Plan Need for Continued Stay: Severe depression anxiety Progress Toward Problem(s) and Goals/Treatment Plan: * group, milieu and supportive tx * klonopin 0.5 mg AMHS for anxiety * remeron 30 mg HS for depression and insomnia * Awaiting medical consult * Vitals reviewed and noted below: Selected Entries 02/13/17 02/14/17 02/14/17 18:11 07:08 16:25 Temperature 98.7 F 98.3 F Pulse Rate 63 62 61 Respiratory 18 19 Rate Blood Pressure 136/100 H 122/73 ER LABS AND STUDIES 02/13/17 15:33 -Chest x-ray: no active disease -EKG: NSR @ 66 BPM, no ST elevation or depression, no T wave inversion. 02/13/17 15:41: Urine Color Yellow, Urine Appearance Clear, Urine pH 6.0, Ur Specific [place] 1.015, Urine Protein Negative, Urine Glucose (UA) Negative, Urine Ketones Negative, Urine Blood Trace-intact H, Urine Nitrate Negative, Urine Bilirubin Negative, Urine Urobilinogen 0.2, Ur Leukocyte Esterase Negative , Urine RBC Pending, Urine WBC Pending 02/13/17 14:11: WBC 6.3 D, RBC 4.84, Hgb 14.0, Hct 40.3 L, MCV 83.3, MCH 28.9, MCHC 34.7, RDW 12.8, Plt Count 232, MPV 9.6, Gran % 66.3, Lymph % (Auto) 24.0, [place] % (Auto) 9.1 H, Eos % (Auto) 0.3 L, Baso % (Auto) 0.3, Gran # 4.17, Lymph # 1.5, [place] # 0.6, Eos # 0.0, Baso # 0.02 02/13/17 14:11: Salicylates < 1 L, Acetaminophen < 10.0 L 02/13/17 14:11: Free T4 1.15, TSH 3rd Generation 1.67, Alcohol, Quantitative < 10 02/13/17 14:11: Urine Opiates Screen Negative, Urine Methadone Screen Negative, Ur Barbiturates Screen Negative, Ur Phencyclidine Scrn Negative, Ur Amphetamines Screen Negative, U Benzodiazepines Scrn Positive H, U Oth Cocaine Metabols Negative, U Cannabinoids Screen Negative 02/13/17 14:11: Sodium 140, Potassium 3.9, Chloride 104, Carbon Dioxide 24, Anion Gap 16, BUN 8, Creatinine 0.8, Est GFR ( Amer) > 60, Est GFR (Non- Af Amer) > 60, Random Glucose 120 H, Calcium 9.4, Total Bilirubin 0.4, AST 20, ALT 26, Alkaline Phosphatase 25 L, Total Protein 7.6, Albumin 4.2, Globulin 3.4 , Albumin/Globulin Ratio 1.2 FLOOR LABS 02/14/17 02/14/17 07:20 07:20 Fasting Glucose 95 Triglycerides 143 Cholesterol 203 H LDL Cholesterol Direct 144 H HDL Cholesterol 36 Free T4 1.23 TSH 3rd Generation 1.60 - Smoking Cessation Smoking Cessation Initiated: No Reason for not providing: Patient doesn't smoke tobacco
[2017-02-15] MEDS: Hydrocortisone 2.5% Rectal Cream(30 gm) PR SCH ×2 (09:22→16:33)
--- NOTE | 2017-02-16 03:33 | PN ---
DATE: 02/15/2017 SUBJECTIVE: The patient is stable, feels better, less anxious, comfortable, no distress, is concerned about his financial situations with the one month's off followed by another month's off and his payment from work, but he slept good. He has a bowel movement overnight. He had a bowel movement in the morning, small one, but he felt better. Still complains of a little bit of discomfort, but no hematuria, no other complaint. PHYSICAL EXAMINATION: As follows; VITAL SIGNS: Temperature is 97.9, heart rate 63, blood pressure 108/69, respiration 19, saturation 100%. HEENT: Head and neck normal. No JVD. No thyromegaly. CHEST: Clear. Good air entry. CARDIOPULMONARY: First and second sounds normal. ABDOMEN: Soft and nontender. EXTREMITIES: No edema. NEUROLOGIC: Normal. IMPRESSION AND PLAN: 1. Abdominal discomfort, constipation, continue MiraLax, Colace. We will consider ultrasound of the abdomen as it continues to be a problem and we will get a urinalysis. 2. Chronic anxiety, generalized anxiety disorder, major depressive disorder. The patient seems stable and we will continue current therapy. 3. Chronic insomnia, seems to do well with the current medicines. Currently, he is getting Anusol-HC, Ativan 2 mg every 8 hours p.r.n. and IM every 8 hours p.r.n., Colace 100 b.i.d., Geodon injection every 8 hours 20 mg p.r.n., Klonopin 0.5 mg b.i.d., MiraLax, Protonix 40, Remeron 30 mg at night seems helping very well and Tylenol p.r.n. Continue current therapy. Keaton Muse MD
[2017-02-16] MEDS: Pantoprazole 40 mg EC Tab PO SCH (06:51)
[2017-02-16 07:42] VITALS: BP 107/64; PULSE 73; RESP 20; TEMP 98.4
--- NOTE | 2017-02-16 08:14 | CON ---
DATE OF CONSULT: 02/14/2017The patient came in, admitted to psych floor for major depression and generalized anxiety disorder and consultation was requested for medical management of underlying medical problems. HISTORY OF PRESENT ILLNESS: This patient is a 51-year-old male who has probably chronic insomnia over the last couple of months, got worse, seen by Dr. Garcia as outpatient, was on Restoril for medical therapy which did help; however, it seems like it is not helping lately. He seems very anxious, very worried, with generalized anxiety disorder features associated with feeling down and depressed and could not go to work, seen by Dr. Garcia. Dr. Garcia gave him 1 months' off work due to his underlying psych issue and had a colonoscopy while doing that and it was negative except for diverticulosis and hemorrhoids. The patient also seen by prostate doctor which was normal PSA and normal prostate exam and the patient advised to follow up with primary care doctor. The patient right now does not complain of anything except his rectal discomfort and lower abdominal discomforts. He has no nausea, no vomiting, no diarrhea, no short of breath, no headaches and no other complaints. PAST MEDICAL HISTORY: As I mentioned before, he does have history of chronic back pain, chronic anxiety, depression, and insomnia. MEDICATIONS AT HOME: Carafate, Protonix, Klonopin, Restoril, Pepcid and Xanax 0.25. SOCIAL HISTORY: He lives by himself. Substance abuse: He does not have any substance abuse history. He drinks beer occasionally, not everyday. Smoking: He does smoke cigar occasionally. He is a formal smoker, not currently. FAMILY HISTORY: Denied any psych problem. REVIEW OF SYSTEMS: As in the present illness, back pain, some discomfort, otherwise negative and insomnia and anxiety problem, otherwise negative. PHYSICAL EXAMINATION: VITAL SIGNS: Temperature 98.3, heart rate 62, blood pressure 122/73, respiration 19, saturation is 100% on room air. HEAD AND NECK: Normal. No JVD, no thyromegaly. CHEST: Clear. Good air entry. CARDIAC: First and second sounds normal. ABDOMEN: Soft and nontender. EXTREMITIES: No edema. NEUROLOGIC: Normal. LABORATORY STUDY: White count 6.3, hemoglobin 14, hematocrit 40.3, and platelets 232. Chemistry; sodium 140, potassium 3.9, chloride 104, bicarb 24, BUN 8, creatinine 0.8, blood sugar 120. Liver function test is normal. Albumin and globulin are normal. Cholesterol 203, LDL 144 and HDL 36, TSH 1.67. The patient, also on admission, he had an electrocardiogram and a chest x-ray. Chest x-ray was negative, no active pulmonary disease and an EKG also was done which shows normal sinus rhythm, normal EKG. IMPRESSION AND PLAN: 1. A 51-year-old male came in with generalized anxiety disorder, major depressions and also was complicated with secondary insomnia, this is underlying illness, seems not helping with the Restoril symptomatic treatment and will need further evaluation by psychiatrist, probably may benefit from cognitive behavior therapy. We will follow up with the psychiatrist for further treatment. He seems stable while he is here, he slept good, so we will continue current management as per psychiatry recommendations. 2. He does have abdominal discomfort, constipation, had a colonoscopy. We will give him MiraLax, we will give him Colace, we will see how he does. Follow recommendations. High fiber diet. Discussed with the patient about his health conditions, assurance and that make him feel better and less anxious. He is worried about his health conditions which seems in a good shape. He does not have any history of cardiac disease. No cancer, no other diseases. We will resume his meds and we will follow up the patient clinically. Thank you for consultation. Keaton Muse MD
[2017-02-16] MEDS: POLYETHYLENE GLYCOL 3350 17 GM/Dose PACKET PO SCH (09:02)
[2017-02-16] MEDS: Hydrocortisone 2.5% Rectal Cream(30 gm) PR SCH (09:04)
--- NOTE | 2017-02-16 17:04 | PCM.PYCHDC ---
Mental Status Examination - Mental Status Examination Orientation: Person, Place, Situation, Time Memory: Intact Mood: Neutral Affect: Broad (and mood congruent) Speech: Appropriate (overproductive) Attention: WNL Concentration: WNL Association: WNL Fund of Knowledge: WNL Formal Thought Process: No Impairment Description of patient's judgement and insight: Pt has improved insight into mental and medical illness, pt was compliant with medications and unit rules and regulations, pt was going to groups, was calm, cooperative, socially appropriate, no behavioral incidents, no agitation, no aggression. Psychotic Thoughts and Behaviors: Pt denied v/a/t hallucinations, denied paranoid ideations, pt does not appear to be psychotic, and thought process is goal directed. Suicidal Ideation: No Current Homicidal Ideation?: No Plan: pt adamantly denied thoughts of harming self or others denied intent or plan. Discharge Summary - Discharge Note Reason for Hospitalization: worsening of anxiety, inability to function, inability to sleep please see Dr. Messina notes for more detailed information. Psychiatric History (includes Medical, Family, Personal Hx): none Laboratory Data: 02/13/17 14:11 02/13/17 14:11 Lab Results 02/14/17 07:20: Free T4 1.23, TSH 3rd Generation 1.60 02/14/17 07:20: Fasting Glucose 95, Triglycerides 143, Cholesterol 203 H, LDL Cholesterol Direct 144 H, HDL Cholesterol 36 02/14/17 07:20: RPR Nonreactive 02/13/17 15:41: Urine Color Yellow, Urine Appearance Clear, Urine pH 6.0, Ur Specific Kimberly 1.015, Urine Protein Negative, Urine Glucose (UA) Negative, Urine Ketones Negative, Urine Blood Trace-intact H, Urine Nitrate Negative, Urine Bilirubin Negative, Urine Urobilinogen 0.2, Ur Leukocyte Esterase Negative , Urine RBC 1 - 3, Urine WBC 0 - 2, Ur Epithelial Cells None, Urine Bacteria Few 02/13/17 14:11: WBC 6.3 D, RBC 4.84, Hgb 14.0, Hct 40.3 L, MCV 83.3, MCH 28.9, MCHC 34.7, RDW 12.8, Plt Count 232, MPV 9.6, Gran % 66.3, Lymph % (Auto) 24.0, Bath % (Auto) 9.1 H, Eos % (Auto) 0.3 L, Baso % (Auto) 0.3, Gran # 4.17, Lymph # 1.5, Bath # 0.6, Eos # 0.0, Baso # 0.02 02/13/17 14:11: Salicylates < 1 L, Acetaminophen < 10.0 L 02/13/17 14:11: Free T4 1.15, TSH 3rd Generation 1.67, Alcohol, Quantitative < 10 02/13/17 14:11: Urine Opiates Screen Negative, Urine Methadone Screen Negative, Ur Barbiturates Screen Negative, Ur Phencyclidine Scrn Negative, Ur Amphetamines Screen Negative, U Benzodiazepines Scrn Positive H, U Oth Cocaine Metabols Negative, U Cannabinoids Screen Negative 02/13/17 14:11: Sodium 140, Potassium 3.9, Chloride 104, Carbon Dioxide 24, Anion Gap 16, BUN 8, Creatinine 0.8, Est GFR ( Amer) > 60, Est GFR (Non- Af Amer) > 60, Random Glucose 120 H, Calcium 9.4, Total Bilirubin 0.4, AST 20, ALT 26, Alkaline Phosphatase 25 L, Total Protein 7.6, Albumin 4.2, Globulin 3.4 , Albumin/Globulin Ratio 1.2 Vital Signs Temp Pulse Resp BP Pulse Ox 02/16/17 07:41 98.4 F 73 20 107/64 02/15/17 06:54 97.9 F 63 18 93/56 L 100 02/14/17 16:25 61 108/69 02/14/17 07:08 98.3 F 62 19 122/73 02/13/17 18:11 98.7 F 63 18 136/100 H 02/13/17 16:26 65 18 129/80 99 02/13/17 14:04 98.5 F 82 18 132/90 97 Consultations:: List each consultation separately and include: 1. Reason for request. 2. Findings. 3. Follow-up Consultations: patient was seen by medical team received notes for more detailed information. Summary of Hospital Course include:: 1. Description of specific treatment plan utilized for patients during their course of treatmen. 2. Summarize the time- course for resolution of acute symptoms and/or regressed behaviors. 3. Describe issues identified and worked on during hospitalization. 4. Describe medication utilized. 5. Describe medical problems identified and treated. 6. Reassessment of suicide risk Summary of Hospital Course: Patient is a 51 y/o single white male with history of depression and anxiety, no prior psychiatric admissions, no history of SA, in outpatient treatment with Dr. Gómez Diggs x 1 month, compliant with prescribed Xanax and Restoril who presented to ER complaining of anxiety and depression and unrelenting insomnia for the past week. pt was seen at tx team meeting, notes from staff and reviewed, pt presented well, was calm, cooperative and well oriented to month, year, location and circumstances. Grooming is adequate. as per 's note: Patient reports that he has been depressed with symptoms of lability anhedonia, insomnia, crying spells, poor frustration tolerance and hopelessness. 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 Major stressors include his concern over his medical health. He feels that his anxiety in this respect is overwhelming, debilitating and out of control. Patient has been taking xanax and restoril with minimal improvement for the past month. Sleep was still restless last night with currently prescribed medications on the unit however he denies any side effects. Thought process is generally coherent and affect is constricted. Patient denies any perceptual disturbance and he is not suicidal or homicidal. Delusions we're not elicited. PSYCHIATRIC HISTORY No prior psychiatric hospitalizations No history of suicide attempts. Patient has been in psychiatric care with Dr. Gómez Diggs x1 month. Prescribed xanax and restoril. SOCIAL HISTORY Born and raised in [place]. Patient is single and he has no children. He lives by himself in an apartment. He graduated high school. 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 Patient has applied for disability. Patient denies any tobacco drug or alcohol use. patient was initiated with Remeron 30 mg at the nighttime for insomnia as well as for mood symptoms Klonopin 0.5 mg was started twice a day for anxiety Patient tolerated medications well, no side effects observed, or reported. Patient requested to be discharged because patient has pets at home and he is worried about his very expensive finish. patient denied being depressed, denied thoughts of harming himself or others denied intent or plan. As per collateral information from the nursing staff, patient was calm, corporative, no behavioral incidents. Patient has future oriented plans to be followed up with Dr. Gómez Benson, to find therapist, and "to be okay". Patient also wants to go back to work, and be productive as he was before. Over the course of this hospitalization pt was attending groups, pt also had medication management, had therapeutic milieu. Overall pt improved significantly, pt's affect became brighter, pt was less depressed, has realistic future oriented plans, pt also does not appear to be psychotic, or anxious, pt was socially appropriate, no behavioral issues, pts insight improved as well and soon pt deemed to be ready for discharge. At the time of the discharge pt denied been depressed, denied thoughts of harming self or others, denied psychotic symptoms, and pt does not appeared to be psychotic, denied been anxious, pt is not in imminent danger to self or others, will be following up at 's office, information about follow up appointment, time and address provided to the pt, it is patient responsibility to follow up with outpatient clinic, PMD as well as specialists (see SW note for more detailed information). In case pt will need to obtain results of studies pending at discharge pt was provided with contact information of Psychiatric Inpatient unit [phone] as well as Medical Record Department [phone]. pt was provided with prescriptions for all of medications (please see medication reconciliation form, pt has enough klonopin at home) Pt was educated about safety plan in case of worsening of symptoms or in case of suicidal or homicidal ideation call 911 or go to the nearest ER, also was educated to take meds as prescribed and stay away from drugs, pt verbalized understanding. - Diagnosis (1) Anxiety disorder due to general medical condition with panic attack Status: Acute - Final Diagnosis (DSM 5) Condition upon Discharge: FAIR Disposition: HOME/ ROUTINE Follow-up Treatment Plan: At the time of the discharge pt denied been depressed, denied thoughts of harming self or others, denied psychotic symptoms, and pt does not appeared to be psychotic, denied been anxious, pt is not in imminent danger to self or others, will be following up at 's office, information about follow up appointment, time and address provided to the pt, it is patient responsibility to follow up with outpatient clinic, PMD as well as specialists (see SW note for more detailed information). In case pt will need to obtain results of studies pending at discharge pt was provided with contact information of Psychiatric Inpatient unit [phone] as well as Medical Record Department [phone]. pt was provided with prescriptions for all of medications (please see medication reconciliation form) Pt was educated about safety plan in case of worsening of symptoms or in case of suicidal or homicidal ideation call 911 or go to the nearest ER, also was educated to take meds as prescribed and stay away from drugs, pt verbalized understanding. Prescriptions/Medication Reconciliation: Hydrocortisone 2.5% (Rectal) [Anusol-Hc] 1 gm [place] BID #1 tube Mirtazapine [Remeron] 30 mg PO HS #14 tab - Smoking Cessation Smoking Cessation Medication prescribed: No Reason for not providing: denied smoking
== END 2017-02-16 16:06 | disposition home or self-care (01) | DRG 884 ==
LOC: ED 13:42 → ERH 15:37 → PSYC 16:48
PROVIDERS: ADMIT Psychiatry & Neurology Psychiatry; ATTEND Psychiatry & Neurology Psychiatry
DX: F06.4 Anxiety disorder due to known physiological condition (principal); F32.2 Major depressive disorder, single episode, severe without psychotic features; F41.0 Panic disorder [episodic paroxysmal anxiety]; F41.1 Generalized anxiety disorder; F17.290 Nicotine dependence, other tobacco product, uncomplicated; K59.00 Constipation, unspecified; F51.04 Psychophysiologic insomnia; Z88.6 Allergy status to analgesic agent; Z88.0 Allergy status to penicillin

== ENCOUNTER 2017-06-16 11:35 | Observation (INO) | payer BC ==
--- NOTE | 2017-06-16 12:29 | ED PDOC ---
Arrival/HPI - General Chief Complaint: Abdominal Pain Time Seen by Provider: 06/16/17 12:24 Historian: Patient - History of Present Illness Narrative History of Present Illness (Text): 06/16/17 12:29 A 51 year old male presents to the emergency department complaining of upper abdominal pain for the past few weeks. Patient has followed up with PMD who scheduled imaging to be done in 1 week. However, patient reports his pain worsened last night causing him to come in today. Patient notes radiating pain to his chest with mild shortness of breath. He notes his pain worsens after eating or with exertion. Patient denies any fever, chills, nausea, vomiting, diarrhea or any other complaints. PMD: Dr. Muse Marble Installation Helper: Dr. Loera Time/Duration: Other (few weeks) Symptom Course: Worsening (last night) Quality: Other Context: Home Past Medical History - Provider Review Nursing Documentation Reviewed: Yes - Infectious Disease Hx of Infectious Diseases: None - Tetanus Immunization Tetanus Immunization: Unknown - Cardiac Hx Cardiac Disorders: Yes Hx Cardiac Arrhythmia: Yes Hx Hypertension: Yes Hx Mitral Valve Prolapse: Yes - Pulmonary Hx Respiratory Disorders: Yes Hx Asthma: Yes - Neurological Hx Neurological Disorder: Yes Hx Dizziness: Yes - HEENT Hx HEENT Disorder: Yes - Renal Hx Renal Disorder: No - Endocrine/Metabolic Hx Endocrine Disorders: Yes Hx Hypothyroidism: Yes - Hematological/Oncological Hx Blood Disorders: No - Integumentary Hx Dermatological Disorder: No - Musculoskeletal/Rheumatological Hx Musculoskeletal Disorders: Yes Hx Falls: Yes Hx Fractures: Yes (left rib) - Gastrointestinal Hx Gastrointestinal Disorders: Yes Hx Gastritis: Yes (w/erosions in esophagus) Hx Gastroesophageal Reflux: Yes Other/Comment: H. Pylori, IBS, biliary colic - Genitourinary/Gynecological Hx Genitourinary Disorders: No - Psychiatric Hx Anxiety: Yes Hx Depression: Yes Hx Substance Use: No - Past Surgical History Past Surgical History: No Previous - Surgical History Hx Cardiac Catheterization: Yes - Anesthesia Hx Anesthesia: Yes Hx Anesthesia Reactions: No Hx Malignant Hyperthermia: No - Suicidal Assessment Feels Threatened In Home Enviroment: No Family/Social History - Physician Review Nursing Documentation Reviewed: Yes Family/Social History: No Known Family HX Smoking Status: Former Smoker Hx Alcohol Use: Yes (OCCASIONAL.LAST DRANK AUGUST 2015 BEER) Hx Substance Use: No Hx Substance Use Treatment: No Allergies/Home Meds Allergies/Adverse Reactions: Allergies aspirin Allergy (Verified 06/16/17 12:06) stomach inflammation stomach inflammation Penicillins Allergy (Verified 06/16/17 12:06) ANAPHYLAXIS Home Medications: Home Meds Medication Instructions Recorded Confirmed Acetaminophen [Tylenol 325mg tab] 650 mg PO BID PRN 06/16/17 06/16/17 Alprazolam [Xanax] 0.5 mg PO TID PRN 06/16/17 06/16/17 Pantoprazole Sodium [Protonix] 40 mg PO DAILY 06/16/17 06/16/17 Sucralfate [Carafate] 1 gm PO BID 06/16/17 06/16/17 busPIRone [Buspar] 5 mg PO DAILY 06/16/17 06/16/17 Review of Systems - Physician Review All systems were reviewed & negative as marked: Yes - Review of Systems Constitutional: absent: Fevers, Night Sweats Respiratory: SOB Cardiovascular: Chest Pain Gastrointestinal: Abdominal Pain. absent: Diarrhea, Nausea, Vomiting Physical Exam - Physical Exam Narrative Physical Exam (Text): Head: Atraumatic. Normocephalic. Eyes: PERRL. EOMI. Conjunctivae are not pale. ENT: Mucous membranes are moist and intact. Oropharynx is clear and symmetric. Neck: Supple. Full ROM. No JVD. No lymphadenopathy. Cardiovascular: Regular rate. Regular rhythm. No murmurs, rubs, or gallops. Distal pulses are 2+ and symmetric. Pulmonary/Chest: No evidence of respiratory distress. Clear to auscultation bilaterally. No wheezing, rales or rhonchi. Abdominal: Soft and non-distended. Moderate epigastric tenderness to palpation. No rebound, guarding, or rigidity. No organomegaly. Good bowel sounds. Back: No CVA tenderness. Mild lower lumbar pain on palpation. No midline erythema or edema. Extremities: No edema. No cyanosis. No clubbing. Full range of motion in all extremities. No calf tenderness. Skin: Skin is warm and dry. No petechiae. No purpura. Neurological: Alert, awake, and oriented. Motor and sensory intact. Psychiatric: Good eye contact. Anxious. 06/16/17 23:49 Vital Signs Reviewed: Yes Vital Signs Temp Pulse Resp BP Pulse Ox 06/16/17 16:28 62 18 129/84 99 06/16/17 14:00 98.7 F 72 18 130/77 97 06/16/17 12:46 70 18 142/88 98 06/16/17 12:04 98 F 70 18 142/88 100 Temperature: Afebrile Blood Pressure: Normal Pulse: Regular Respiratory Rate: Normal Appearance: Positive for: Well-Appearing, Non-Toxic, Comfortable Pain Distress: None Mental Status: Positive for: Alert and Oriented X 3 Medical Decision Making ED Course and Treatment: 06/16/17 12:29 Impression: A 51 year old male with upper abdominal pain radiating to chest. Differential Diagnosis included but are not limited to: Gastritis vs. CAD vs. Gallstones vs. Colitits Plan: -- Chest xray -- EKG -- Labs -- Urinalysis -- Pepcid and IV fluids -- Reassess and disposition Prior Visits: Notes and results from previous visits were reviewed. Patients prior abdominal CT and ultrasound was done on 11/27/16, which showed: Report Date : 11/27/2016 10:58:33 PROCEDURE: CT Abdomen and Pelvis with contrast Dictator : Kenny Zuñiga MD IMPRESSION: Unremarkable abdominal/ pelvic CT. Stable small right lower pole renal cortical cyst. Scattered colonic diverticulae. Otherwise unremarkable. Bone of the about so among capping the nodes up Report Date : 11/27/2016 12:56:04 Procedure: Abdomen ultrasound Dictator : Kenny Zuñiga MD IMPRESSION: Unremarkable abdominal sonogram. Progress Notes: Patient appears well hydrated. No pulsatile masses. No hypoxia or pleuritic pain. EKG unremarkable. Initial cardiac enzymes unremarkable. Report Date : 06/16/2017 16:07:59 Procedure: Chest xray Dictator : Gucci Barrera MD IMPRESSION: No active disease. Due to persistent pain, failure of outpatient treatment, case d/w Dr. Muse, will admit patient for serial exams, imaging studies. On re-exam, no peritoneal signs, afebrile, cv stable. Strong and equal distal pulses. NO upper back pain. 06/16/17 23:50 - Lab Interpretations Lab Results: 06/16/17 12:40 06/16/17 12:40 Lab Results 06/16/17 12:45: POC Glucose (mg/dL) 98 06/16/17 12:40: Sodium 140, Potassium 4.4, Chloride 102, Carbon Dioxide 25, Anion Gap 17, BUN 13, Creatinine 0.8, Est GFR ( Amer) > 60, Est GFR (Non- Af Amer) > 60, Random Glucose 113 H, Calcium 10.1, Total Bilirubin 0.4, AST 21, ALT 30, Alkaline Phosphatase 24 L, Lactate Dehydrogenase 302 L, Total Creatine Kinase 54, Troponin I < 0.01, Total Protein 7.9, Albumin 4.3, Globulin 3.5, Albumin/Globulin Ratio 1.2, Amylase 69, Lipase 54 06/16/17 12:40: APTT 30.0, D-Dimer, Quantitative < 200 06/16/17 12:40: WBC 7.0, RBC 4.97, Hgb 14.4, Hct 43.4, MCV 87.3 D, MCH 29.0, MCHC 33.2, RDW 12.8, Plt Count 230, MPV 10.1, Gran % 71.6 H, Lymph % (Auto) 21.7 L, [place] % (Auto) 5.9, Eos % (Auto) 0.4 L, Baso % (Auto) 0.4, Gran # 5.00, Lymph # 1.5, [place] # 0.4, Eos # 0.0, Baso # 0.03 I have reviewed the lab results: Yes - RAD Interpretation Radiology Orders: 06/16/17 12:36 CHEST PORTABLE [RAD] Stat - Medication Orders Current Medication Orders: Alprazolam (Xanax) 0.5 mg PO BID PRN; Protocol PRN Reason: Anxiety Last Admin: 06/16/17 23:25 Dose: 0.5 mg Behavioural Document 06/16/17 23:25 SG (Rec: 06/16/17 23:25 SG [id number]) Maintenance Maintenance Dose No Nonmedicinal Nonmedicinal Interventions Redirect Therapeutic Communication Behavior Behavior for Medication: Anxiety Buspirone HCl (Buspar) 10 mg PO BID LILIANE PRN Reason: Protocol Last Admin: 06/16/17 17:26 Dose: 10 mg Behavioural Document 06/16/17 17:26 (Rec: 06/16/17 17:26 [id number]) Maintenance Maintenance Dose Yes Re-Assess: Reassess Psych Meds Document 06/16/17 18:26 (Rec: 06/16/17 18:47 [id number]) Reassess Psych Med Effective Enoxaparin Sodium (Lovenox) 40 mg SC DAILY LILIANE PRN Reason: Protocol Famotidine (Pepcid) 40 mg PO HS LILIANE Last Admin: 06/16/17 21:55 Dose: 40 mg Hydromorphone HCl (Dilaudid) 0.5 mg IVP Q4H PRN PRN Reason: Pain, moderate (4-7) Sodium Chloride (Sodium Chloride 0.9%) 1,000 mls @ 100 mls/hr IV .Q10H LILIANE Last Admin: 06/16/17 12:51 Dose: 100 mls/hr eMAR Start Stop Document 06/16/17 12:51 [facility] (Rec: 06/16/17 12:51 [facility] [id number]) Intravenous Solution Start Date 06/16/17 Start Time 12:51 Pantoprazole Sodium (Protonix Inj) 40 mg IVP DAILY LILIANE Discontinued Medications Famotidine (Pepcid) 20 mg IVP STAT STA Stop: 06/16/17 12:39 Last Admin: 06/16/17 12:51 Dose: 20 mg IVP Administration Document 06/16/17 12:51 [facility] (Rec: 06/16/17 12:51 [facility] [id number]) Charges for Administration # of IVP Administrations 1 - Scribe Statement The provider has reviewed the documentation as recorded by the Eric Mejias Provider Scribe Attestation: All medical record entries made by the Scribe were at my direction and personally dictated by me. I have reviewed the chart and agree that the record accurately reflects my personal performance of the history, physical exam, medical decision making, and the department course for this patient. I have also personally directed, reviewed, and agree with the discharge instructions and disposition. Disposition/Present on Arrival - Present on Arrival Any Indicators Present on Arrival: No History of DVT/PE: No History of Uncontrolled Diabetes: No Urinary Catheter: No History of Decub. Ulcer: No History Surgical Site Infection Following: None - Disposition Have Diagnosis and Disposition been Completed?: Yes Diagnosis: Chest pain, Abdominal pain Disposition: HOSPITALIZED Disposition Time: 13:56 Patient Plan: Admission Patient Problems: Current Active Problems Problem Status Onset Abdominal pain Acute Chest pain Acute Condition: FAIR
[2017-06-16 12:51] LABS: BASO # 0.03 K/mm3 (0.0-2.0); BASO % 0.4 % (0.0-3.0); EOS % 0.4 % (1.5-5.0); GRAN % 71.6 % (50.0-68.0); HEMOGLOBIN 14.4 g/dL (14.0-18.0); LYMPH # 1.5 (1.2-3.4); LYMPH % 21.7 % (22.0-35.0); MEAN CELL VOLUME 87.3 fl (80.0-105.0); MEAN CORPUSCULAR HGB CONC 33.2 g/dl (31.0-37.0); MEAN PLATELET VOLUME 10.1 fl (7.0-11.0); MONO # 0.4 (0.1-0.6); MONO % 5.9 % (1.0-6.0); RBC 4.97 10^6/uL (3.5-6.1); RED CELL DISTRIBUTION WIDTH 12.8 % (11.5-14.5)
[2017-06-16] MEDS: Sodium Chloride 0.9% 1,000 ML IV SCH (12:51)
[2017-06-16 13:01] LABS: ALB/GLOB RATIO 1.2 (1.1-1.8); ALBUMIN 4.3 g/dL (3.0-4.8); ALT/SGPT 30 U/L (7-56); AMYLASE 69 U/L (35-125); AST/SGOT 21 U/L (17-59); BLOOD UREA NITROGEN 13 mg/dL (7-21); CALCIUM 10.1 mg/dL (8.4-10.5); GFR AFRICAN-AMERICAN > 60; GFR NON-AFRICAN AMERICAN > 60; LIPASE 54 U/L (23-300)
[2017-06-16 13:10] LABS: D DIMER < 200 ng/mL (0-243)
[2017-06-16 13:12] LABS: TROPONIN I < 0.01 ng/mL
[2017-06-16 14:07] LABS: PH,URINE 7.5 (4.7-8.0); URINE BILIRUBIN NEGATIVE (NEGATIVE); URINE BLOOD NEGATIVE (NEGATIVE); URINE GLUCOSE (UA) NEGATIVE (NEGATIVE); URINE LEUKOCYTE ESTERASE NEGATIVE Leu/uL (NEGATIVE); URINE NITRATE NEGATIVE (NEGATIVE); URINE PROTEIN NEGATIVE mg/dL (<30 mg/dL); URINE UROBILINOGEN 0.2 E.U./dL (<1 E.U./dL)
[2017-06-16 14:08] LABS: URINE APPEARANCE CLEAR (CLEAR); URINE COLOR YELLOW (YELLOW)
--- NOTE | 2017-06-16 16:09 | RAD ---
HISTORY: chest pain COMPARISON: 02/13/2017 FINDINGS: LUNGS: No active pulmonary disease. PLEURA: No significant pleural effusion identified, no pneumothorax apparent. CARDIOVASCULAR: Normal. OSSEOUS STRUCTURES: No significant abnormalities. VISUALIZED UPPER ABDOMEN: Normal. OTHER FINDINGS: None. IMPRESSION: No active disease.
--- NOTE | 2017-06-16 16:56 | CARD ---
APPROVED REPORT EKG Measurement Heart [id number] <Conclusion> Normal sinus rhythm with sinus arrhythmia Normal ECG
[2017-06-16 18:41] VITALS: BMI 28.1
[2017-06-16 20:12] LABS: TROPONIN I < 0.01 ng/mL
[2017-06-17] MEDS: HYDROmorphone 0.5 mg/0.5 ml ISec IVP PRN ×2 (05:33→22:14)
[2017-06-17] MEDS ORDERED: Iohexol 350 MG/100 ML VIAL ONE (07:39)
[2017-06-17] MEDS: Enoxaparin 40 mg Syringe SC SCH (09:16)
--- NOTE | 2017-06-17 10:06 | CT ---
PROCEDURE: CT scan abdomen pelvis 06/17/2017 HISTORY: Back pain. COMPARISON: Comparison made with prior study 11/27/2016 TECHNIQUE: Contiguous helical/transaxial images of the abdomen and pelvis pelvis performed following intravenous injection of approximately 100 cc Omnipaque 350 contrast material. Coronal and Sagittal reformats generated. Show Radiation dose: Total exam DLP = 636.66 mGy-cm. This CT exam was performed using one or more of the following dose reduction techniques: Automated exposure control, adjustment of the mA and/or kV according to patient size, and/or use of iterative reconstruction technique. FINDINGS: LOWER THORAX: The lung bases are clear without infiltrate effusion or basilar pneumothorax. Heart size within range of normal. No significant pericardial effusion. . There is a small hiatal hernia LIVER: The liver exhibits normal size and attenuation pattern without mass collection or calcification. Portal and splenic veins are opacified. GALLBLADDER AND BILE DUCTS: Gallbladder is physiologically distended. No evidence of intraluminal gallbladder calculi. PANCREAS: Unremarkable. No mass. No ductal dilatation. SPLEEN: Unremarkable. No splenomegaly. ADRENALS: No adrenal lesions seen. KIDNEYS AND URETERS: Kidneys that demonstrate relatively symmetric nephrograms. No evidence of nephrolithiasis or hydronephrosis. There is a small approximately 9.2 x 6.1 mm partially exophytic cyst arising from the anterior cortex lower pole right kidney again noted. . . BLADDER: Urinary bladder is incompletely distended which in part accounts for thick-walled appearance. Muscular hypertrophy presumably contributes. REPRODUCTIVE: Prostate gland measures approximately 3.75 cm in transverse dimension. APPENDIX: . Normal-appearing appendix. No evidence of para appendiceal inflammatory changes BOWEL: Evaluation of the bowel is somewhat limited due to the lack of oral contrast material. Stomach is incompletely distended which presumably in part accounts for thick-walled appearance. Gastritis not excluded. Visualized loops of small bowel exhibit normal contour and caliber. No evidence of acute mechanical small bowel obstruction. There are few scattered colonic diverticula along the sigmoid colon however no definitive radiographic evidence of acute diverticulitis. PERITONEUM: Unremarkable. No fluid collection. No free air. Small fat containing umbilical hernia. LYMPH NODES: Unremarkable. No enlarged lymph nodes. VASCULATURE: Unremarkable. No aortic aneurysm. BONES: Minor multilevel degenerative spondylosis of the lower thoracic and lumbar spine. Bilateral spondylolysis L5 segment with minimal less than grade 1 spondylolisthesis L5-S1 level at. There are no acute compression fractures nor retropulsed fragments. . OTHER FINDINGS: None. IMPRESSION: There are a few scattered colonic diverticula along the sigmoid colon however no radiographic evidence acute diverticulitis. Re- demonstrated is a small cyst lower pole right kidney. Bilateral spondylolysis L5 segment with minimal less than grade 1 spondylolisthesis L5-S1 level
[2017-06-17] MEDS ORDERED: Aminophylline 25 mg/ml Inj ONE (10:09)
--- NOTE | 2017-06-17 11:07 | RAD ---
HISTORY: back pain COMPARISON: Correlation made with prior chest radiograph 06/16/2017 FINDINGS: BONES: Alig no acute compression fractures no retropulsed fragments. Vertebral bodies exhibit normal stature. Vertebral bodies and facets normally aligned. DISC SPACES: Multilevel degenerative spondylosis. Changes include varying degrees of mild disc space narrowing with endplate eburnation and anterolateral osteophyte formation. SOFT TISSUES: Soft tissues appear grossly unremarkable. OTHER FINDINGS: None. IMPRESSION: No acute fractures. Mild multilevel degenerative spondylosis. .
--- NOTE | 2017-06-17 18:23 | CARD ---
APPROVED REPORT EXAM: Two-dimensional and M-mode echocardiogram with Doppler and color Doppler. INDICATION Chest Pain LVFX 2D DIMENSIONS Left Atrium (2D)4.1 (1.6-4.0cm)IVSd1.0 (0.7-1.1cm) LVDd5.0 (3.9-5.9cm)PWd0.9 (0.7-1.1cm) LVDs3.1 (2.5-4.0cm)FS (%) 37.1 % LVEF (%)66.8 (>50%) M-Mode DIMENSIONS Aortic Root3.60 (2.2-3.7cm)Aortic Cusp Exc.1.90 (1.5-2.0cm) Aortic Valve AoV Peak Gvxyfsqp174.0cm/Freda Peak GR.9mmHg Mitral Valve MV E Ssoidnfm88.1cm/sMV A Zgulhqsc17.8cm/sE/A ratio1.1 TDI Lateral E' Peak V13.30cm/sMedial E' Peak V7.80cm/sE/Lateral E'6.4 E/Medial E'10.9 Tricuspid Valve TR Peak Vduthfpo558kg/sRAP [id number] Peak Gr.34mmHg [id number] LEFT VENTRICLE The left ventricle is normal size. There is normal left ventricular wall thickness. The left ventricular function is normal.EF-65% There is normal LV segmental wall motion. The left ventricular diastolic function is normal. No left ventricle thrombus noted on this study. There is no ventricular septal defect visualized. There is no left ventricular aneurysm. There is no mass noted in the left ventricle. RIGHT VENTRICLE The right ventricle is normal size. There is normal right ventricular wall thickness. The right ventricular systolic function is normal. ATRIA The left atrium is mildly dilated. The right atrium size is normal. The interatrial septum is intact with no evidence for an atrial septal defect. AORTIC VALVE The aortic valve is thickened but opens well. There is trace aortic regurgitation. There is no aortic valvular stenosis. There is no aortic valvular vegetation. MITRAL VALVE The mitral valve is thickened but opens well. Mitral regurgitation is trace. There is no mitral valve stenosis. There is no evidence of mitral valve prolapse. TRICUSPID VALVE The tricuspid valve leaflets are thickened , but open well. There is trace to mild tricuspid regurgitation.RVSP-44mm of Hg There is no tricuspid valve stenosis. There is no tricuspid valve prolapse or vegetation. PULMONIC VALVE The pulmonary valve is normal in structure. There is no pulmonic valvular regurgitation. There is no pulmonic valvular stenosis. GREAT VESSELS The aortic root is normal in size. The ascending aorta is normal in size. The pulmonary artery is normal. The IVC is normal in size and collapses >50% with inspiration. PERICARDIAL EFFUSION There is no pleural effusion. There is no pericardial effusion. There is no pericardial effusion. <Conclusion> The left ventricle is normal size. There is normal left ventricular wall thickness. The left ventricular function is normal.EF-65% There is trace aortic regurgitation. Mitral regurgitation is trace. There is trace to mild tricuspid regurgitation.RVSP-44mm of Hg
[2017-06-17] MEDS: Sodium Chloride 0.9% 1,000 ML IV SCH (18:30)
--- NOTE | 2017-06-17 20:03 | CARD ---
APPROVED REPORT Protocol: LEXISCAN Test Type: Lexiscan Sestamibi Stress Test Attending Physician: Dr. Shalonda Carbajal Referring Physician: Dr. Keaton Muse Test Indications: Chest Pain Height:5 ft 10 in Weight:209lbs Medications: XANAX, BUSPAR, LOVENOX, PEPCID, DILAUDID, PROTONIX Medical History: 51 YEAR OLD MALE WITH A H/O ASTHMA, HTN, HIGH CHOLESTEROL, MITRAL VALVE PROLAPSE, HYPOTHYROIDISM, GASTRITIS, ANXIETY AND DEPRESSION Target HR: 169 bpm Resting ECG: RSR. Resting Heart Rate: 60 bpm Resting Blood Pressure: 122/66mmHg Submaximum (85%): 144 bpm PROCEDURE Pharmacologic stress testing was performed using 0.4mg per 5ml of regadenoson given intravenously over 7-10 seconds. POST EXERCISE Reason for Termination: Protocol completed Target HR: No Max HR: 64 bpm 71% of Maximum Predicted HR: 169 bpm Exercise duration: 00:31 min:sec, 0 Stage Exercise capacity: 1.0METs Max Blood Pressure: 122/66mmHg Blood Pressure response to exercise: normal resting BP - appropriate response Heart Rate response to exercise: appropriate Chest Pain: Yes, Abdominal and Chest Pain same as Prior, During and Post Stre Angina index: 0 Arrhythmia: No, none ST Change: No, none Deviation: 0 mm INTERPRETATION Stress EKG Conclusion: IV LEXISCAN NUCLEAR STRESS TEST. PATIENT HAD SAME ABOOMINAL AND CHEST PAIN BEFORE, DURING AND POST STRESS TEST WITHOUT ANY CHANGE. NO ST-T CHANGES SEEN. NUCLEAR SCAN REPORT PENDING. Signed by Shalonda Carbajal Electronically Approved: 06/17/2017 12:58:34 EXAM: Myocardial Perfusion REST/STRESS Stress Test Type: Pharmacologic Imaging Protocol Rest Spect myocardial perfusion imaging was performed in supine position 50 minutes following the injection of 10.3 mCi of Tc-99 Myoview. At peak stress, the patient was injected intravenously with 30.7mCi of Tc-99 tetrofosmin after an infusion time of 0 minutes and 10 seconds. Gated Stress Spect was performed 65 minutes after intravenous Tc-99 Myoview injection. The images were gated to evaluate regional wall motion and calculate ventricular ejection fraction.Images were reconstructed using backfilter projection method in short horizontal and verticle long axis. Spect slices were generated. LV Perfusion The quality of the study is good. The left ventricle is mildly enlarged in size. The right ventricle is unremarkable. The lung uptake is within normal limits. The distribution of tracer reveals normal uptake pattern throughout the LV myocardium on the stress study. The rest myocardial perfusion study shows no significant change. Wall Motion Wall motion study shows good contractility of the left ventricle. LVEF = 56%. Conclusion 1. Normal SPECT myocardial perfusion study. 2. Normal gated wall motion of the left ventricle. 3. In comparison with the last study of 07/26/2015, there is no significant change
--- NOTE | 2017-06-17 20:29 | CON ---
DATE: CONSULT SERVICE: Cardiology. CONSULTING PHYSICIAN: Shalonda Conrad MD REASON FOR CONSULTATION: Cardiac evaluation, abdominal pain, chest pain radiating into the chest. BRIEF CLINICAL HISTORY: This is a 51-year-old male with a past medical history significant for epigastric pain, upper abdominal pain, and right upper quadrant pain goes into the chest and goes to the throat, and feel patient has difficulty in walking when the pain comes. Otherwise the patient can walk, no problem. Denies any chest pain or dyspnea on exertion, it is just pain from abdomen and then it radiates to the chest. Being followed by Dr. Loera and Dr. Muse PAST MEDICAL HISTORY: Past history significant for possible gastric ulcer, gastroesophageal reflux, and hypertension. History of cardiac catheterization in 04/[address] Granado, essentially unremarkable coronaries, ejection fraction 65%. PREVIOUS CARDIAC WORKUP: As follows: The patient had a cardiac catheterization on 05/09/[address] Kenny Granado, essentially unremarkable coronaries, ejection fraction 65%. The patient had most recently a stress echocardiography on 07/26/2015 that shows normal chamber size, ejection fraction of 60% to 65%, trace MR, trace AR, trace to mild tricuspid regurgitation, RV systolic pressure of 36 dated 07/27/2015. The patient had a stress test myocardial perfusion on 07/26/2015, essentially normal myocardial perfusion study, ejection fraction of 69%. PAST SURGICAL HISTORY: Cardiac catheterization dated 05/09/2013 as above. ALLERGIES: TO PENICILLIN AND ASPIRIN; INTOLERANCE TO ASPIRIN GETS UPSET STOMACH. CURRENT MEDICATIONS: The patient is taking BuSpar 5 mg daily, Carafe 1 gm daily, Protonix 40 mg daily, Xanax 0.5 mg, and acetaminophen. REVIEW OF SYSTEMS: As per HPI, and negative except for HPI. PHYSICAL EXAMINATION: As follows: VITAL SIGNS: Temperature afebrile, heart rate 60, blood pressure 123/75. HEENT: PERRLA. Extraocular muscles intact. NECK: Supple. No carotid bruits or thyromegaly. CHEST: Clear to auscultation. HEART: S1, S2, regular. ABDOMEN: Soft. EXTREMITIES: Clubbing, cyanosis negative. LABORATORY DATA: Blood workup as follows: WBC is 7, hemoglobin 14.4, hematocrit 43.4, platelet count 230. Chemistry shows sodium 140, potassium 4.4, chloride 102, carbon dioxide 25, anion gap of 17, BUN 13, creatinine 0.8. Troponin is 0.01 x3 negative. IMPRESSION: A 51-year-old male with past medical history significant for gastric esophageal reflux, possible gastric ulcer, admitted with epigastric pain radiating into the chest, history of cardiac catheterization in 2012 essentially normal coronaries with preserved left ventricular function. Last stress test on 07/26/2015 normal preserved left ventricular, ejection fraction of 69%. Echo also shows preserved left ventricular function, ejection fraction of 60%, trace mitral regurgitation, trace aortic regurgitation, trace to mild tricuspid regurgitation, but given the multiple risk factors for coronary artery disease, do echo and a stress test; if negative, consider extensive gastrointestinal workup because the symptoms starts from the epigastrium and goes to the chest. We will scheduled for a stress test and echo. Further recommendation after the noninvasive workup will follow with you. Thank you Dr. Muse for providing us the opportunity in taking care of the patient, [place]. Keep n.p.o. Echo and stress test today. Further recommendation after the stress test. We will follow with you. The patient says he cannot walk on the treadmill. We will do the IV Lexiscan. The patient is n.p.o. and we will keep n.p.o. to get a stress test. Multiple troponin remains negative. No evidence of acute MS. We will get a hemoglobin A1c, lipid profile tomorrow. Shalonda Conrad MD
--- NOTE | 2017-06-17 23:49 | CP.PCM.CON ---
History of Present Illness - History of Present Illness History of Present Illness: this 51-year-old patient with a past medical history of hypertension hypothyroidism chronic GERD history of H. pylori gastritis treated in 2015 has episodes of abdominal pain he is being followed by Dr. Baez in the past. He did have an endoscopy more than 7 months ago [facility]. He experiences last few weeks worsening of the epigastric discomfort. He also has noted chest discomfort. Your colonoscopy more than a year ago no change of bowel habits no diarrhea no fever he describes symptoms mainly in the upper abdomen. He also complains of episodes of nausea vomiting. OTHER PAST MEDICAL HISTORY as above FAMILY HISTORY noncontributory sOCIAL HISTORY denies smoking or alcohol REVIEW OF SYSTEMS all other systems reviewed negative Past Patient History - Infectious Disease Hx of Infectious Diseases: None - Tetanus Immunizations Tetanus Immunization: Unknown - Past Social History Smoking Status: Former Smoker - CARDIAC Hx Cardiac Disorders: Yes Hx Cardia Arrhythmia: Yes Hx Hypertension: Yes Hx Mitral Valve Prolapse: Yes - PULMONARY Hx Respiratory Disorders: Yes Hx Asthma: Yes - NEUROLOGICAL Hx Neurological Disorder: Yes Hx Dizziness: Yes - HEENT Hx HEENT Problems: Yes - RENAL Hx Chronic Kidney Disease: No - ENDOCRINE/METABOLIC Hx Endocrine Disorders: Yes Hx Hypothyroidism: Yes - HEMATOLOGICAL/ONCOLOGICAL Hx Blood Disorders: No - INTEGUMENTARY Hx Dermatological Problems: No - MUSCULOSKELETAL/RHEUMATOLOGICAL Hx Musculoskeletal Disorders: Yes Hx Falls: Yes Hx Fractures: Yes (left rib) - GASTROINTESTINAL Hx Gastrointestinal Disorders: Yes Hx Gastritis: Yes (w/erosions in esophagus) Hx Gastroesophageal Reflux: Yes Other/Comment: H. Pylori, IBS, biliary colic - GENITOURINARY/GYNECOLOGICAL Hx Genitourinary Disorders: No - PSYCHIATRIC Hx Anxiety: Yes Hx Depression: Yes Hx Substance Use: No - SURGICAL HISTORY Hx Cardiac Catheterization: Yes - ANESTHESIA Hx Anesthesia: Yes Hx Anesthesia Reactions: No Hx Malignant Hyperthermia: No Meds Allergies/Adverse Reactions: Allergies Allergy/AdvReac Type Severity Reaction Status Date / Time aspirin Allergy stomach Verified 06/16/17 12:06 inflammation Penicillins Allergy ANAPHYLAXIS Verified 06/16/17 12:06 - Medications Medications: Current Medications Alprazolam (Xanax) 0.5 mg PO BID PRN; Protocol PRN Reason: Anxiety Last Admin: 06/16/17 23:25 Dose: 0.5 mg Buspirone HCl (Buspar) 10 mg PO BID LILIANE PRN Reason: Protocol Last Admin: 06/16/17 17:26 Dose: 10 mg Enoxaparin Sodium (Lovenox) 40 mg SC DAILY LILIANE PRN Reason: Protocol Famotidine (Pepcid) 40 mg PO HS [facility] Last Admin: 06/16/17 21:55 Dose: 40 mg Hydromorphone HCl (Dilaudid) 0.5 mg IVP Q4H PRN PRN Reason: Pain, moderate (4-7) Sodium Chloride (Sodium Chloride 0.9%) 1,000 mls @ 100 mls/hr IV .Q10H [facility] Last Admin: 06/16/17 12:51 Dose: 100 mls/hr Pantoprazole Sodium (Protonix Inj) 40 mg IVP DAILY [facility] Physical Exam - Constitutional Appears: No Acute Distress - Head Exam Head Exam: ATRAUMATIC, NORMOCEPHALIC - Eye Exam Eye Exam: EOMI. absent: Scleral icterus Pupil Exam: PERRL - ENT Exam ENT Exam: Mucous Membranes Moist, Normal External Ear Exam, Normal Oropharynx - Neck Exam Neck exam: Positive for: Full Rom. Negative for: Lymphadenopathy - Respiratory Exam Respiratory Exam: Clear to Auscultation Bilateral, NORMAL BREATHING PATTERN. absent: Rales, Rhonchi - Cardiovascular Exam Cardiovascular Exam: REGULAR RHYTHM, +S1, +S2. absent: JVD - GI/Abdominal Exam GI & Abdominal Exam: Soft, Tenderness Additional comments: tenderness mainly in the epigastric area. No rebound or guarding no mass - Extremities Exam Extremities exam: Positive for: full ROM, normal inspection - Neurological Exam Neurological exam: Alert, Altered, Oriented x3 - Psychiatric Exam Psychiatric exam: Anxious - Skin Skin Exam: Intact Results - Vital Signs Recent Vital Signs: Last Vital Signs Temp 98.6 F 06/16/17 18:28 Pulse 58 L 06/16/17 18:28 Resp 18 06/16/17 18:28 BP 144/96 H 06/16/17 18:28 Pulse Ox 99 06/16/17 16:28 - Labs Result Diagrams: 06/16/17 12:40 06/16/17 12:40 Labs: Laboratory Results - last 24 hr 06/16/17 06/16/17 06/16/17 13:57 19:21 19:21 Magnesium 2.0 Troponin I < 0.01 TSH 3rd Generation 1.56 Urine Color Yellow Urine Appearance Clear Urine pH 7.5 Ur Specific Amelia <= 1.005 Urine Protein Negative Urine Glucose (UA) Negative Urine Ketones Negative Urine Blood Negative Urine Nitrate Negative Urine Bilirubin Negative Urine Urobilinogen 0.2 Ur Leukocyte Esterase Negative Urine Opiates Screen Urine Methadone Screen Ur Barbiturates Screen Ur Phencyclidine Scrn Ur Amphetamines Screen U Benzodiazepines Scrn U Oth Cocaine Metabols U Cannabinoids Screen 06/16/17 20:05 Magnesium Troponin I TSH 3rd Generation Urine Color Urine Appearance Urine pH Ur Specific Amelia Urine Protein Urine Glucose (UA) Urine Ketones Urine Blood Urine Nitrate Urine Bilirubin Urine Urobilinogen Ur Leukocyte Esterase Urine Opiates Screen No result Urine Methadone Screen No result Ur Barbiturates Screen No result Ur Phencyclidine Scrn No result Ur Amphetamines Screen No result U Benzodiazepines Scrn No result U Oth Cocaine Metabols No result U Cannabinoids Screen No result Assessment & Plan - Assessment and Plan (Free Text) Assessment: Epigastric pain. Differential diagnoses include a erosive esophagitis, peptic ulcer disease, cholelithiasis, and a cardiac etiology also to be considered. Last sonogram reviewed no stones His other comorbidities include a hypothyroidism dyslipidemia hypertension Plan: 1. Protonix 40 mg daily 2. Would consider upper GI endoscopy if cleared by the cardiology in a.m. 3. follow up of CT of the abdomen and pelvis discussed with - Date & Time Date: 06/16/17 Time: 17:00
--- NOTE | 2017-06-17 23:56 | PN ---
DATE: 06/17/2017 SUBJECTIVE: The patient feels better, still complaining of epigastric discomfort. He will be getting endoscopy after cardiac clearance, but otherwise he seems a little better with Dilaudid. PHYSICAL EXAMINATION: VITAL SIGNS: Temperature 98, heart rate 63, blood pressure 123/75, respirations 20, and saturation 96%. HEAD AND NECK: Normal. No JVD. No thyromegaly. CHEST: Clear. Good air entry. CARDIAC: First sound and second sound are normal ABDOMEN: Soft, tender epigastric area. Bowel sounds intact. EXTREMITIES: No edema. NEUROLOGIC: Normal. LABORATORY DATA: Troponin was repeated two times and it was negative. The patient also had D-dimer which is less than 200, and had a toxicology urine drug screen which was negative. IMPRESSION AND PLAN: 1. Abdominal pain, probably gastritis, CT for any mass or any pancreatic lesions. GI, Dr. Dolan was cleared by security installer. 2. History of chronic anxiety and depression, continue BuSpar, continue Xanax, we will follow up clinically. 3. Chronic back pain. The patient does not have degenerative spine disease. Repeat x-ray of the spine shows multiple mild degenerative disk disease of the spine, and CT of the abdomen shows negative for pancreatic lesions. Continue current therapy. Discuss with Dr. Dolan and discuss with Dr. Conrad and stress test result still pending. Keaton Muse MD
--- NOTE | 2017-06-18 02:26 | PN ---
DATE: 06/17/2017 SUBJECTIVE: This patient was seen and evaluated earlier today. The patient is comfortable, still complains of epigastric pain. PHYSICAL EXAMINATION: VITAL SIGNS: He is afebrile, blood pressure 123/73, respirations 16. HEENT: Atraumatic. Anicteric. NECK: Supple. HEART: S1 and S2 heard. LUNGS: Bilateral air entry present. ABDOMEN: Soft. There is tenderness present in the epigastric area. There is no rebound or guarding. EXTREMITIES: No edema. No cyanosis. LABORATORY DATA: No repeat labs done. IMPRESSION AND PLAN: This 51-year-old patient admitted with epigastric and lower chest pain. The patient did have an endoscopy done before by Dr. Loera at [facility] more than 6 months ago. The patient mentioned that the pain is getting progressively worse. He had an ultrasound scan done on November 28, which was reviewed. He has no stone or gallstones. The etiology for his abdominal epigastric discomfort is unclear. The patient has been scheduled for a stress test and echo. If the patient is cleared by the Cardiology, we will consider upper GI endoscopy to further evaluate the symptomatology. I did discuss with Dr. uMse regarding this patient earlier. Clifton Dolan MD
[2017-06-18] MEDS: Sodium Chloride 0.9% 1,000 ML IV SCH (04:39)
--- NOTE | 2017-06-18 06:23 | HP ---
DATE: 06/16/2017 REASON FOR ADMISSION: Abdominal pain, epigastric pain going through his chest. HISTORY OF PRESENT ILLNESS: A 51-year-old male with history of anxiety, depression, has been seen in the past, had been complaining of abdominal pain, mainly in the epigastric area that is radiating to his chest, going up all the way to his chest. The patient mentioned also that this pain sometimes happen with moving or more with eating. Denied any nausea, vomiting, diarrhea, any fever, any dizziness, syncope, or any other complaints. No palpitations. No history of cardiac disease. Last stress test was more than two years ago, and it was normal. The patient does have history of psych problems and gastritis. He had upper endoscopy by specialist in the past and was found to have gastritis; also had diverticulosis, but otherwise was negative. The patient came in because of severity of symptoms and possibly going to his chest and severe anxiety . PAST MEDICAL HISTORY: As I mentioned before, he does have chronic anxiety, gastritis, chronic back pain, bursitis, chronic osteoarthritis, history of psych admissions for depression and anxiety, seen by psychiatrist as an outpatient, does not remember his name , also seen by GI Dr. Loera. ALLERGIES: HE IS ALLERGIC TO CODEINE. ALLERGIC TO NONSTEROIDAL, HE SAID MOTRIN, ADVIL ALWAYS CAUSE HIS STOMACH TO GET WORSE. FAMILY HISTORY: Noncontributory. REVIEW OF SYSTEMS: He always complain of back pain, leg pain, knee pain and anxiety, epigastric pain, insomnia, stress, dysuria sometimes, but not really any running urination, seen by multiple specialists. PHYSICAL EXAMINATION: VITAL SIGNS: Temperature 98.6, heart rate 58, blood pressure 144/96, respirations 18, saturation 96 on room air. HEAD AND NECK: Normal. No JVD. No thyromegaly. CHEST: Clear. Good air entry. CARDIAC: First sound and second sound normal, mild systolic murmur. ABDOMEN: Soft with significant tenderness in epigastric area. Bowel sounds intact. EXTREMITIES: There is no edema. NEUROLOGIC: Normal. LABORATORY DATA: White count 7, hemoglobin 14.4, hematocrit 43.4, and platelets 230. Chemistry, sodium 140, potassium 4.4, chloride 102, bicarbonate 25, BUN 13, and creatinine 0.8. Blood sugar 115. Liver function test is normal. Alkaline phosphatase is normal. Lactate dehydrogenase is normal. Amylase and lipase is normal. TSH is normal. Troponin was negative. The patient also had EKG and a chest x-ray. The electrocardiogram, normal sinus rhythm with sinus arrhythmia, heart rate otherwise normal. Heart rate 65. Chest x-ray shows no active pulmonary disease. IMPRESSION AND PLAN: A 51-year-old male, came in with epigastric pain, admitted to telemetry. The patient had noted ventricular tachycardia while he was on telemetry. The patient also has epigastric pain. He has tenderness. We will admit the patient, intravenous Protonix, Cardiology consult Dr. Conrad, probably would benefit from cardiac evaluation including stress testing and we will also get a CT abdomen and pelvis to look at the pancreas and GI consultation Dr. Dolan. The patient also had a psych history. We will resume psych indications. At this time, continue current treatment including Xanax 0.5 mg b.i.d., Zofran 4 mg intravenous q. 4 hours p.r.n., Tylenol p.r.n., normal saline intravenous fluid at 100 mL per hour, Pepcid 40 mg daily, Lovenox 40 subcu daily, Dilaudid 0.5 mg intravenous q. 4 hours, p.r.n., BuSpar 10 mg b.i.d. Continue current therapy. We will discuss further with the managing consultant clinical professor. Keaton Muse MD
[2017-06-18 07:08] LABS: BASO # 0.02 K/mm3 (0.0-2.0); BASO % 0.3 % (0.0-3.0); EOS # 0.1 (0.0-0.7); GRAN # 3.52 (1.4-6.5); GRAN % 60.3 % (50.0-68.0); HEMOGLOBIN 13.3 g/dL (14.0-18.0); LYMPH # 1.8 (1.2-3.4); LYMPH % 30.7 % (22.0-35.0); MEAN CELL VOLUME 88.1 fl (80.0-105.0); MEAN CORPUSCULAR HEMOGLOBIN 28.9 pg (25.0-35.0); MEAN CORPUSCULAR HGB CONC 32.8 g/dl (31.0-37.0); MEAN PLATELET VOLUME 10.3 fl (7.0-11.0); MONO # 0.5 (0.1-0.6); MONO % 7.7 % (1.0-6.0); RBC 4.61 10^6/uL (3.5-6.1); RED CELL DISTRIBUTION WIDTH 12.8 % (11.5-14.5); WHITE BLOOD COUNT 5.8 10^3/ul (4.5-11.0)
[2017-06-18 07:28] LABS: LDL CHOLESTEROL 112 mg/dL (0-129)
[2017-06-18 07:33] LABS: ALB/GLOB RATIO 1.2 (1.1-1.8); ALBUMIN 3.6 g/dL (3.0-4.8); ALT/SGPT 25 U/L (7-56); AST/SGOT 19 U/L (17-59); BLOOD UREA NITROGEN 8 mg/dL (7-21); CALCIUM 9.4 mg/dL (8.4-10.5); GFR AFRICAN-AMERICAN > 60; GFR NON-AFRICAN AMERICAN > 60; HDL CHOLESTEROL 35 mg/dL (29-60)
[2017-06-18] MEDS ORDERED: Propofol 10 mg/ml Inj (20 ML) ONE (09:30)
[2017-06-18] MEDS ORDERED: Sodium Chloride 0.9% 1,000 ML IV SCH (10:15)
[2017-06-18] MEDS: Enoxaparin 40 mg Syringe SC SCH (11:17)
[2017-06-18] MEDS ORDERED: Potassium Chloride 20 mEq ER Tab PO ONE (11:27)
[2017-06-18 11:31] VITALS: TEMP 98.4
[2017-06-18 11:33] VITALS: RESP 12
[2017-06-18 11:35] VITALS: BP 135/79; PULSE 50; O2SAT 100
--- NOTE | 2017-06-18 15:42 | PN ---
DATE: REASON FOR CONSULTATION AND FOLLOWUP: Cardiac evaluation, abdominal pain, chest pain radiating to the chest. SUBJECTIVE: The patient denies any chest pain, but complained of epigastric pain. PHYSICAL EXAMINATION GENERAL: Not in apparent distress. VITAL SIGNS: Temperature afebrile, heart rate 63, blood pressure 135/91. HEENT: PERRLA. Extraocular muscles intact. NECK: Supple. No carotid bruit, no thyromegaly. CHEST: Clear to auscultation. HEART: S1 and S2 regular. ABDOMEN: Soft. EXTREMITIES: Clubbing and cyanosis negative. LABORATORY DATA: Blood workup as follows, WBC 5.8, hemoglobin 13.2, hematocrit 40.6, platelet count 200. Chemistry showed sodium 140, potassium 3.6, chloride 107, carbon dioxide 25, anion gap of 14, BUN 8, creatinine 0.5. Troponin 0.01. IMPRESSION: A 51-year-old male with past medical history significant for gastroesophageal reflux, history of hypertension, history of cardiac catheterization on 04/2013, nonobstructive coronary artery disease, essentially normal. Admitted with abdominal pain radiating to the chest. Most likely, the symptoms are secondary to abdominal pain, but given the multiple risk factors, the patient underwent stress test and echo. Stress test is essentially normal myocardial perfusion study, no reversible ischemia. Ejection fraction preserved at 56% in comparison to the last study dated 07/25/2014, there is no significant change noted. The patient had an echocardiography done on 06/17/2017 that shows ejection fraction of 65%, trace aortic regurgitation, trace mitral regurgitation, right ventricular systolic pressure 44 mmHg. RECOMMENDATIONS: The patient is okay to go for GI workup. No further cardiac workup is planned. Cardiovascular status is stable. Continue proton pump inhibitor and suggest to have endoscopy done today. Discussed with Dr. Muse yesterday and I discussed with Dr. Dolan. Thank you Dr. Muse for providing us the opportunity in taking care of the patient, Bola Dockery . We will supplement potassium after the endoscopy. Shalonda Conrad MD
--- NOTE | 2017-06-19 08:50 | CON ---
DATE: 06/18/2017 He is being seen today for a consultation. PRESENTATION: The patient is a 51-year-old male of average height and build seen at bedside. The patient initially was admitted to the hospital on 06/16/2017 complaining of upper abdominal pain, indicates this pain worsens after eating or exertion. Psych consult was called for the patient's anxiety and depression. The patient indicates that he lives alone in an apartment. He has never been . He has no children. He is 51 years old. He currently has taken a week off from work to get some testing done to workup this situation with his stomach. He has a lawsuit going on currently against his employers. 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 pylori from ongoing conditions at work, so he has a lawsuit pending for that as well. However, financially, he is doing okay. The patient psychiatrically has never been hospitalized. He has never had a suicide attempt. He saw Dr. Gómez Diggs last year somewhere around 10/2016 or 11/2016 in order to have some medication and he put him on temporary disability for a period of time. The patient's current psychiatric medications are BuSpar 10 mg one p.o. b.i.d. and mirtazapine 15 mg one at bedtime. He has been taking these from his primary medical doctor since he has not been seeing Dr. Diggs. He had a reaction to both one time, it made him suicidal and also homicidal. The patient denies any legal history. He denies being in the . He denies any history of and he denies any access to guns. In terms of psychiatric family history, he indicates he thinks that his mother had been depressed. The patient grew up in [place]. He is #7 of 7 siblings, the youngest and he indicates that his childhood was hard, he [place] in a very difficult section of town, he adapted; however, had friends. He did okay in school, he was not much of a score person, he struggled in maths, but he did manage to finish high school. He denies any special education services. 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 The patient is roman catholic. He is Synagogue, normally practicing Synagogue. He has been isolating from things recently, but is planning to return to Worship this weekend. PHYSICAL EXAMINATION: VITAL SIGNS: The patient's current vital signs are temperature of 98.4, pulse rate of 50, blood pressure of 135/70, respiratory rate of 12, and an O2 sat of 100%. In review of the nurse's notes, the patient has been pleasant and cooperative while in hospital. He had an endoscopy earlier today. MENTAL STATUS EXAM: The patient is alert and oriented x3. Eye contact is good. Behavior is cooperative. Speech, rate and volume are within normal limits. Mood is anxious. Affect is constricted. His thoughts are goal directed, but circumstantial and tangential as well. He denies being suicidal or homicidal. He at times is depressed, that he has had passive suicidal ideation, he does not have this currently. He denies the presence of hallucinations, delusions, or paranoia. His concentration and focus are poor. 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 His appetite and his sleep are not at their normal. DIAGNOSTIC IMPRESSION: Mood disorder; depressive disorder, unspecified. PLAN: The patient denies being suicidal or homicidal. He denies the presence of hallucinations, delusions, or paranoia. He appears in no imminent danger of hurting himself or others at this time. He plans to follow up with Dr. Gómez Diggs upon discharge for medication management. I gave him a list of Mental Health Clinics in the area as an option for him to follow through it. The patient appears to be psychiatrically stable at this time, has follow up planned. We will sign off on this patient. Please call us if there are any further needs. Asha Ahuja APN
--- NOTE | 2017-06-22 04:54 | DS ---
HISTORY OF PRESENT ILLNESS: A 51-year-old male came in with abdominal pain, epigastric discomfort. The patient initially was admitted to telemetry. The patient had cardiac evaluations including nuclear stress test, which was came back normal. No perfusion defects, also echocardiogram good LV functions. The patient's troponin was negative. He underwent endoscopy, which shows gastroparesis. The patient was given small dose of Remeron to help him eating better and elevated symptoms and advised to use pureed diet for the time being and then will see how the patient do. The etiology of this gastroparesis is unclear. He does not take any narcotics. He is not diabetic and he does not having other medical problems. The patient had a CT abdomen and pelvis which was negative. He had also evaluation by Gastroenterology, Dr. Dolan and Cardiology Dr. Conrad while he is in the hospital. On discharge day, he is stable. The patient also had a D-dimer which was negative and was otherwise stable. PHYSICAL EXAMINATION: VITAL SIGNS: His vital signs 98.4, heart rate 56, blood pressure 113/69, respirations 18, saturation is 100%. HEAD AND NECK: Normal. No JVD. No thyromegaly. CHEST: Clear. Good air entry. CARDIAC: First sound and second sound are normal. ABDOMEN: Soft, obese, mild tender epigastric area. Bowel sounds intact. EXTREMITIES: No edema. NEUROLOGIC: Normal. LABORATORY DATA: Include white count 12.8, hemoglobin 13.3, hematocrit 40.6, platelets 200. Chemistries which showed; sodium 142, potassium 3.6, chloride 107, bicarbonate 25, BUN 8, creatinine 0.8. Liver function test is normal. Troponin x3 was negative. LDL cholesterol was 112. His cholesterol total 171. His HDL is 35 and triglycerides 112. TSH was 1.56. He also has reports which include thoracic spine x-ray which shows mild degenerative changes and he had a CT abdomen and pelvis IV contrast, which shows scattered colonic diverticula of the sigmoid colon evidence of any diverticulitis, small cyst right kidney and bilateral spondylosis of L5 segment with minimal grade 1 spondylosis L5-S1. The patient had myocardial perfusion scan which is negative and also EKG which shows normal sinus rhythm, sinus arrhythmia, normal QT and normal QTc. Chest x-ray no active pulmonary disease. The patient was discharged home to be followed as an outpatient. DISCHARGE DIAGNOSES: 1. Gastroparesis. 2. Acute gastritis. 3. Chronic anxiety. 4. Osteoarthritis of the spine and spondylosis. 5. Renal cyst. 6. Chronic anxiety and depression. PLAN: Discharge home, followup in the office. BuSpar 5 mg b.i.d., Carafate, Protonix 40 mg once a day, Xanax 0.5 mg 3 times a day, Tylenol p.r.n., Protonix 40 mg p.o. daily, Zofran 4 mg p.o. q. 6 hours p.r.n., Remeron 15 mg p.o. at bedtime. He can use half a tablet daily because of his sedative effects and Pepcid 40 mg at bedtime, and Tylenol p.r.n. Followup in the office within a week. Keaton Muse MD
== END 2017-06-18 16:03 | disposition home or self-care (01) ==
LOC: ED 11:35 → ERH 13:54 → 3RNO 16:50
PROVIDERS: ADMIT Internal Medicine; ATTEND Internal Medicine
DX: K31.84 Gastroparesis (principal); K29.00 Acute gastritis without bleeding; K21.9 Gastro-esophageal reflux disease without esophagitis; K29.50 Unspecified chronic gastritis without bleeding; K29.80 Duodenitis without bleeding; K58.9 Irritable bowel syndrome, unspecified; R07.9 Chest pain, unspecified; M47.897 Other spondylosis, lumbosacral region; I10 Essential (primary) hypertension; K57.90 Diverticulosis of intestine, part unspecified, without perforation or abscess without bleeding; N28.1 Cyst of kidney, acquired; F32.9 Major depressive disorder, single episode, unspecified; F41.9 Anxiety disorder, unspecified; I25.10 Atherosclerotic heart disease of native coronary artery without angina pectoris; I08.3 Combined rheumatic disorders of mitral, aortic and tricuspid valves; E78.5 Hyperlipidemia, unspecified; E03.9 Hypothyroidism, unspecified; G89.29 Other chronic pain; M54.9 Dorsalgia, unspecified; Z88.6 Allergy status to analgesic agent; Z88.0 Allergy status to penicillin; Z87.891 Personal history of nicotine dependence
CPT/HCPCS: 36415; 43239; 71045; 72070; 74177; 78452; 80053; 80061; 81003; 82150; 82550; 82948; 83036; 83615; 83690; 83735; 84100; 84443; 84484; 85025; 85378; 85730; 88305; 88342; 93005; 93017; 93306; 96361; 96372; 96374; 96375; 96376; 99285; A9502; C9113; G0378; G0480; J1170; J1650; J2405; J2704; J7040; Q9967

== ENCOUNTER 2017-08-07 12:38 | Emergency (ER) | payer OTHER, BC ==
[2017-08-07 12:43] VITALS: BMI 27.3
[2017-08-07] MEDS ORDERED: HYDROmorphone 1 mg/ml ISec IM ONE (13:29)
--- NOTE | 2017-08-07 13:35 | ED PDOC ---
Arrival/HPI - General Chief Complaint: Back Pain Time Seen by Provider: 08/07/17 13:28 Historian: Patient - History of Present Illness Narrative History of Present Illness (Text): 08/07/17 13:25 pt p/w + sudden onset of worsening mid to lower back pain, worse with movement/ walking; pt states while at work just prior to ED arrival, he was hoisting a heavy garbage can like object to the side (left) when he felt sudden pop to his back and severe pain immediately followed; pt states pain is at most at 8/10; pt states no fever/chills/sweats, no cp/sob/palpitations, no abd pain, no n/v, no numbness/tingling, no urinary/bowel changes, no incontinence, no fall/trauma/ sick contact, no travel; pt states pain is similar to his prior back pains; pt states no rectal/penial numbness/tingling pt denied other complaints pt is here for further eval PCP: Dr Muse pt with hx of back pain/herniations pt is right hand dominate Time/Duration: Prior to Arrival Symptom Onset: Sudden Symptom Course: Worsening Quality: Tightness, Stabbing, Cramping Severity Level: 8, Severe Activities at Onset: Other (exertional) Context: Work Past Medical History - Provider Review Nursing Documentation Reviewed: Yes - Travel History Have you recently traveled outside [place] w/in the past 3 mons?: No - Past History Past History: No Previous - Infectious Disease Hx of Infectious Diseases: None - Tetanus Immunization Tetanus Immunization: Unknown - Cardiac Hx Cardiac Disorders: Yes Hx Cardiac Arrhythmia: Yes Hx Hypertension: Yes Hx Mitral Valve Prolapse: Yes - Pulmonary Hx Respiratory Disorders: Yes Hx Asthma: Yes - Neurological Hx Neurological Disorder: Yes Hx Dizziness: Yes - HEENT Hx HEENT Disorder: Yes - Renal Hx Renal Disorder: No - Endocrine/Metabolic Hx Endocrine Disorders: Yes Hx Hypothyroidism: Yes - Hematological/Oncological Hx Blood Disorders: No - Integumentary Hx Dermatological Disorder: No - Musculoskeletal/Rheumatological Hx Musculoskeletal Disorders: Yes Hx Falls: Yes Hx Fractures: Yes (left rib) - Gastrointestinal Hx Gastrointestinal Disorders: Yes Hx Gastritis: Yes (w/erosions in esophagus) Hx Gastroesophageal Reflux: Yes Other/Comment: H. Pylori, IBS, biliary colic - Genitourinary/Gynecological Hx Genitourinary Disorders: No - Psychiatric Hx Anxiety: Yes Hx Depression: Yes Hx Substance Use: No - Past Surgical History Past Surgical History: No Previous - Surgical History Hx Cardiac Catheterization: Yes - Anesthesia Hx Anesthesia: Yes Hx Anesthesia Reactions: No Hx Malignant Hyperthermia: No - Suicidal Assessment Feels Threatened In Home Enviroment: No Family/Social History - Physician Review Nursing Documentation Reviewed: Yes Family/Social History: No Known Family HX Smoking Status: Former Smoker Hx Alcohol Use: Yes (OCCASIONAL.LAST DRANK AUGUST 2015 BEER) Hx Substance Use: No Hx Substance Use Treatment: No Allergies/Home Meds Allergies/Adverse Reactions: Allergies aspirin Allergy (Verified 06/16/17 12:06) stomach inflammation stomach inflammation Penicillins Allergy (Verified 06/16/17 12:06) ANAPHYLAXIS Home Medications: Home Meds Medication Instructions Recorded Confirmed Alprazolam [Xanax] 0.5 mg PO TID PRN 06/16/17 08/07/17 Pantoprazole Sodium [Protonix] 40 mg PO DAILY 06/16/17 08/07/17 Sucralfate [Carafate] 1 gm PO BID 06/16/17 08/07/17 busPIRone [Buspar] 5 mg PO DAILY 06/16/17 08/07/17 Review of Systems - Review of Systems Constitutional: Normal Eyes: Normal ENT: Normal Respiratory: Normal Cardiovascular: Normal Gastrointestinal: Normal Genitourinary Male: Normal Musculoskeletal: Back Pain Skin: Normal Neurological: Normal Endocrine: Normal Hemo/Lymphatic: Normal Psychiatric: Normal Physical Exam Vital Signs Reviewed: Yes Vital Signs Temp Pulse Resp BP Pulse Ox 08/07/17 15:55 80 18 126/72 98 08/07/17 13:50 98.0 F 76 18 138/76 100 Temperature: Afebrile Blood Pressure: Normal Pulse: Regular Respiratory Rate: Normal Appearance: Positive for: Well-Appearing, Non-Toxic, Uncomfortable, Other (alert /awake, resting in bed, uncomfortable, + moderate distress due to pain, GCS = 15 , oriented x 3, cooperative, follows command with ease) Pain Distress: Moderate Mental Status: Positive for: Alert and Oriented X 3 - Systems Exam Head: Present: Atraumatic, Normocephalic Pupils: Present: PERRL, Other (visual field intact b/l, no nystagmus, no photophobia, sclera anicteric) Extroacular Muscles: Present: EOMI Conjunctiva: Present: Normal Ears: Present: Normal Mouth: Present: Moist Mucous Membranes, Normal Teeth Pharnyx: Present: Normal Nose (External): Present: Atraumatic Nose (Internal): Present: Normal Inspection Neck: Present: Normal Range of Motion, Trachea Midline, Other (intact ROM, no midline tenderness, no step off, no crepitus, no gross deformities). No: MIDLINE TENDERNESS Respiratory/Chest: Present: Clear to Auscultation, Good Air Exchange, Other ( CTA b/l, no w/r/r). No: Respiratory Distress Cardiovascular: Present: Regular Rate and Rhythm, Normal S1, S2. No: Murmurs Abdomen: Present: Normal Bowel Sounds, Other (well nourished female, no focal tenderness, no wilson's sign, no mcburney's point tenderness, no masses/rebound/ guarding/rigidity) Back: Present: Normal Inspection, Midline Tenderness, Paraspinal Tenderness, Other (+ midline/lower lumbar spinal tenderness, no step off, DECR ROM, no crepitus, no skin discoloration) Upper Extremity: Present: Normal Inspection, Normal ROM, NORMAL PULSES, Neurovascularly Intact, Capillary Refill < 2s Lower Extremity: Present: Normal Inspection, NORMAL PULSES, Normal ROM, Neurovascularly Intact, Capillary Refill < 2 s, Other (pt is able to stand unassisted; + ambulate with limp however) Neurological: Present: GCS=15, CN II-XII Intact, Speech Normal Skin: Present: Warm, Normal Color, Other (cap refill < 1sec, no ulcerations, no petechiae) Psychiatric: Present: Alert, Oriented x 3 Medical Decision Making ED Course and Treatment: 08/07/17 1325 Impression: mid/lower back strain/pain i have consider all the differential diagnosis regarding pt's chief medical complaints/clinical findings, including but are not limited to: mid/lower back strain A/P: mid/lower back pain - xray - pain control - observe - supportive care 08/07/17 1531 pt felt some improvement pt states pain is now 7/10 pt remained able to stand unassisted pt remained able to ambulate pt is made aware of his medical results pt is encouraged no heavy lifting, no prolonged standing/walking pt will f/u as directed pt will be discharged home Re-evaluation Time: 15:31 Reassessment Condition: Improving,but remains with symptoms - RAD Interpretation Narrative RAD Interpretations (Text): 08/07/17 15:16 HISTORY: atrumatic mid/lower back pain at work COMPARISON: No prior. FINDINGS: BONES: Alignment maintained. No fracture. DISC SPACES: Mild disc degeneration with marginal osteophytes SOFT TISSUES: Normal. OTHER FINDINGS: None. IMPRESSION: No acute fractures L/S PROCEDURE: Radiographs of the Lumbar Spine. HISTORY: atrumatic mid/lower back pain at work COMPARISON: No prior. FINDINGS: BONES: There is spondylolysis at L5. There is no spondylolisthesis DISC SPACES: Unremarkable. OTHER FINDINGS: None. IMPRESSION: There is spondylolysis at L5. There is no spondylolisthesis Radiology Orders: 08/07/17 13:28 THORACIC SPINE [DORSAL (THORACIC) SPINE] [RAD] Stat 08/07/17 13:30 LS SPINE AP/LAT [RAD] Stat Field Administrative Assistant: Radiologist - Medication Orders Current Medication Orders: Discontinued Medications Diazepam (Valium) 5 mg PO ONCE ONE PRN Reason: Protocol Stop: 08/07/17 13:32 Last Admin: 08/07/17 14:07 Dose: 5 mg Hydromorphone HCl (Dilaudid) 1 mg IM ONCE ONE Stop: 08/07/17 13:30 Last Admin: 08/07/17 14:07 Dose: 1 mg MAR Pain Assessment Document 08/07/17 14:07 GMD (Rec: 08/07/17 14:07 GMD [id number]) Pain Reassessment Is this a pain reassessment? No Presence of Pain Presence of Pain Yes IM Administration Charges Document 08/07/17 14:07 GMD (Rec: 08/07/17 14:07 GMD [id number]) Injection Site MAR Injection Site Right Deltoid Charges for Administration # of IM Administrations 1 Ketorolac Tromethamine (Toradol) 30 mg IM STAT STA Stop: 08/07/17 13:30 Last Admin: 08/07/17 14:07 Dose: 30 mg MAR Pain Assessment Document 08/07/17 14:07 GMD (Rec: 08/07/17 14:07 GMD [id number]) Pain Reassessment Is this a pain reassessment? No Presence of Pain Presence of Pain Yes IM Administration Charges Document 08/07/17 14:07 GMD (Rec: 08/07/17 14:07 GMD [id number]) Injection Site MAR Injection Site Left Deltoid Charges for Administration # of IM Administrations 1 Disposition/Present on Arrival - Present on Arrival Any Indicators Present on Arrival: No History of DVT/PE: No History of Uncontrolled Diabetes: No Urinary Catheter: No History of Decub. Ulcer: No History Surgical Site Infection Following: None - Disposition Have Diagnosis and Disposition been Completed?: Yes Diagnosis: Muscle strain, Muscle spasm of back, Back pain of thoracolumbar region Disposition: HOME/ ROUTINE Disposition Time: 15:32 Patient Plan: Discharge Condition: STABLE Discharge Instructions (ExitCare): Muscle Strain (DC) Print Language: SOMALI Additional Instructions: Make sure to see your doctor in 1-2 days DRINK PLENTY OF FLUIDS AVOID heavy lifting take your medications as prescribed RETURN TO ED IF worse pain, cant breath, persistent vomiting, high fever >101- 102 for hours, altered behavior, unable to urinate, severe numbness/tingling, incontinence, heavy/persistent bleeding, passing out, chest pain, or other medical emergencies Prescriptions: diaZEpam [Valium] 5 mg PO TID PRN #10 tab PRN Reason: Muscle Spasm Ibuprofen [Motrin] 400 mg PO QID PRN #20 tab PRN Reason: Pain, Mild (1-3) oxyCODONE/Acetaminophen [Percocet 5/325 mg Tab] 1 tab PO TID PRN #12 tab PRN Reason: Pain, Moderate (4-7) Referrals: Keaton Muse MD [Primary Care Provider] - Follow up with primary Trent Cortés MD [Staff Provider] - Follow up with primary Zbigniew Madrigal MD [Staff Provider] - Follow up with primary Forms: [employer] (French), WORK NOTE
[2017-08-07 13:51] VITALS: RESP 18; TEMP 98
--- NOTE | 2017-08-07 14:58 | RAD ---
HISTORY: atrumatic mid/lower back pain at work COMPARISON: No prior. FINDINGS: BONES: Alignment maintained. No fracture. DISC SPACES: Mild disc degeneration with marginal osteophytes SOFT TISSUES: Normal. OTHER FINDINGS: None. IMPRESSION: No acute fractures
--- NOTE | 2017-08-07 15:05 | RAD ---
PROCEDURE: Radiographs of the Lumbar Spine. HISTORY: atrumatic mid/lower back pain at work COMPARISON: No prior. FINDINGS: BONES: There is spondylolysis at L5. There is no spondylolisthesis DISC SPACES: Unremarkable. OTHER FINDINGS: None. IMPRESSION: There is spondylolysis at L5. There is no spondylolisthesis
[2017-08-07 15:55] VITALS: BP 126/72; PULSE 80; O2SAT 98
== END 2017-08-07 16:06 | disposition home or self-care (01) ==
LOC: ED 12:38
DX: M62.830 Muscle spasm of back (principal); S39.012A Strain of muscle, fascia and tendon of lower back, initial encounter; X50.0XXA Overexertion from strenuous movement or load, initial encounter; Y99.0 Civilian activity done for income or pay; I10 Essential (primary) hypertension; E03.9 Hypothyroidism, unspecified; Z87.891 Personal history of nicotine dependence
CPT/HCPCS: 72070; 72100; 96372; 99284; J1170; J1885

== ENCOUNTER 2017-10-19 09:26 | Emergency (ER) | payer BC ==
[2017-10-19 09:26] VITALS: BMI 27.3
[2017-10-19 09:45] VITALS: TEMP 98.2; O2SAT 100
[2017-10-19] MEDS ORDERED: Alum-Mag Hydrox-Simethicone Susp (30 mL) PO STA (10:02)
[2017-10-19] MEDS ORDERED: Sodium Chloride 0.9% 1,000 ML IV STA (10:02)
--- NOTE | 2017-10-19 10:10 | ED PDOC ---
Arrival/HPI - General Chief Complaint: GI Problem Time Seen by Provider: 10/19/17 09:55 Historian: Patient - History of Present Illness Narrative History of Present Illness (Text): you were treated in the ED today for hx of anxeity, gastritis with normal gastric emptying test 10/06/17, and now having flare-up epigastric area with nausea and loose stool x4 without bile/blood and anxiousness but otherwise without any vomiting/headache/dizziness/difficulty breathing/chest pain/numbness /tingling/loss of limb function/pain with urination/thoughts to harm yourself or others or hallucinations. Time/Duration: 24 hours Symptom Onset: Gradual Quality: Burning Severity Level: 2 Activities at Onset: Rest Context: Sitting Past Medical History - Provider Review Nursing Documentation Reviewed: Yes - Travel History Have you recently traveled outside [place] w/in the past 3 mons?: No - Past History Past History: No Previous - Infectious Disease Hx of Infectious Diseases: None - Tetanus Immunization Tetanus Immunization: Unknown - Cardiac Hx Cardiac Disorders: Yes Hx Cardiac Arrhythmia: Yes Hx Hypertension: Yes Hx Mitral Valve Prolapse: Yes - Pulmonary Hx Respiratory Disorders: Yes Hx Asthma: Yes - Neurological Hx Neurological Disorder: Yes Hx Dizziness: Yes - HEENT Hx HEENT Disorder: Yes - Renal Hx Renal Disorder: No - Endocrine/Metabolic Hx Endocrine Disorders: Yes Hx Hypothyroidism: Yes - Hematological/Oncological Hx Blood Disorders: No - Integumentary Hx Dermatological Disorder: No - Musculoskeletal/Rheumatological Hx Musculoskeletal Disorders: Yes Hx Falls: Yes Hx Fractures: Yes (left rib) - Gastrointestinal Hx Gastrointestinal Disorders: Yes Hx Gastritis: Yes Hx Gastroesophageal Reflux: Yes Other/Comment: H. Pylori, IBS, biliary colic, GASTRO PARESIS - Genitourinary/Gynecological Hx Genitourinary Disorders: No - Psychiatric Hx Psychophysiologic Disorder: Yes Hx Anxiety: Yes Hx Depression: Yes Hx Substance Use: No - Past Surgical History Past Surgical History: No Previous - Surgical History Hx Cardiac Catheterization: Yes - Anesthesia Hx Anesthesia: Yes Hx Anesthesia Reactions: No Hx Malignant Hyperthermia: No - Suicidal Assessment Feels Threatened In Home Enviroment: No Family/Social History - Physician Review Nursing Documentation Reviewed: Yes Family/Social History: Unknown Family HX Smoking Status: Former Smoker Hx Alcohol Use: Yes (OCCASIONAL.LAST DRANK AUGUST 2015 BEER) Hx Substance Use: No Hx Substance Use Treatment: No Allergies/Home Meds Allergies/Adverse Reactions: Allergies aspirin Allergy (Verified 10/19/17 09:39) stomach inflammation stomach inflammation Penicillins Allergy (Verified 10/19/17 09:39) ANAPHYLAXIS Home Medications: Home Meds Medication Instructions Recorded Confirmed Alprazolam [Xanax] 1 tab PO BID PRN 10/19/17 10/19/17 Ondansetron HCl [Zofran] 4 mg PO Q6 PRN 10/19/17 10/19/17 Zolpidem Tartrate [Ambien Cr] 12.5 mg PO HS 10/19/17 10/19/17 amLODIPine [Norvasc] 5 mg PO DAILY 10/19/17 10/19/17 Review of Systems - Review of Systems Constitutional: Normal Eyes: Normal ENT: Normal Respiratory: Normal Cardiovascular: Normal Gastrointestinal: Abdominal Pain, Stool Changes, Nausea Genitourinary Male: Normal Musculoskeletal: Normal Skin: Normal Neurological: Normal Endocrine: Normal Hemo/Lymphatic: Normal Psychiatric: Anxiety. absent: Normal, Depression, Suicidal Ideation, Other Physical Exam Vital Signs Reviewed: Yes Vital Signs Temp Pulse Resp BP Pulse Ox 10/19/17 09:42 98.2 F 74 18 125/86 100 Temperature: Afebrile Blood Pressure: Hypertensive Pulse: Regular Respiratory Rate: Normal Appearance: Positive for: Well-Appearing, Non-Toxic, Comfortable Pain Distress: None Mental Status: Positive for: Alert and Oriented X 3 - Systems Exam Head: Present: Atraumatic, Normocephalic Pupils: Present: PERRL Extroacular Muscles: Present: EOMI Conjunctiva: Present: Normal Ears: Present: Normal Mouth: Present: Moist Mucous Membranes Pharnyx: Present: Normal Nose (External): Present: Atraumatic Nose (Internal): Present: Normal Inspection Neck: Present: Normal Range of Motion Respiratory/Chest: Present: Clear to Auscultation, Good Air Exchange Cardiovascular: Present: Regular Rate and Rhythm Abdomen: Present: Tenderness, Other (epigastric but otherwise soft/nt) Back: Present: Normal Inspection Upper Extremity: Present: Normal Inspection Lower Extremity: Present: Normal Inspection Neurological: Present: GCS=15, CN II-XII Intact, Speech Normal, Motor Func Grossly Intact Skin: Present: Warm, Normal Color Psychiatric: Present: Alert, Oriented x 3, Normal Insight, Normal Concentration , Anxious. No: Normal Affect, Normal Mood, Agitated, Depressed Mood, Suicidal Ideation, Homicidal Ideation, Delusional, Hallucinations, Intoxicated, Lethargic , Other Medical Decision Making ED Course and Treatment: you were treated in the ED today for hx of anxeity, gastritis with normal gastric emptying test 10/06/17, and now having flare-up epigastric area with nausea and loose stool x4 without bile/blood and anxiousness but otherwise without any vomiting/headache/dizziness/difficulty breathing/chest pain/numbness /tingling/loss of limb function/pain with urination/thoughts to harm yourself or others or hallucinations. You were otherwise breathing easily, talking easily , good strength/sensation, walking easily, clear lungs, mild epigastric abdomen discomfort but no other area of discomfort, no fever temp 98.2, stable heart rate 74, stable breathing rate 18, excellent oxygen level 100% room air, elevated blood pressure 125/86 which we recommend repeat in 2-3 days primary care office to determine further treatment, you have blood tests no infection count 7, stable blood level hemoglobin 15/platelets 255, stable chemistry, heart blood test negative less than 0.01, urine test negative, lipase 62 negative, Ultrasound of gallbladder and pancreas negative with no cholelithiasis noted, ECG normal sinus rhythm, saline, protonix, zofran, observation done in the ED with improvement no noted epigastric discomfort, counselled to drink lots of fluids and monitor symptoms and thus discharged home. 1. Recommend omeprazole as directed for stomach acid control. 2. Recommend follow-up primary care 1-2 days to review symptoms, referral to gastroenterology clinic to review your symptoms to ensure no complications and for further care. 2. If any worsening pain, fever, chills, nausea, vomiting, difficulty breathing, numbness, loss of limb function, pain with urination or any medical condition then return to the ED. 10/19/17 14:41 Ultrasound of Gallbladder and Pancreas reviewed by radiologist, shows: FINDINGS: LIVER: Measures 16.1 cm in length. Normal echogenicity of the liver parenchyma. No mass. No intrahepatic bile duct dilatation. GALLBLADDER: Unremarkable. No gallstones. No pericholecystic fluid collections. No sonographic Barnett sign reported. COMMON BILE DUCT: Measures approximately 3.7 mm. No stones. No dilatation. PANCREAS: Unremarkable as visualized. No mass. No ductal dilatation. RIGHT KIDNEY: Measures 10.2 x 5.5 x 5.5 cm in length. Normal echogenicity. No calculus, mass, or hydronephrosis. AORTA: No aneurysmal dilatation. IVC: Unremarkable. OTHER FINDINGS: None . IMPRESSION: Intra abdominal no evidence of cholelithiasis. No significant interval change when compared with prior abdominal ultrasound 11/27/[address] scan abdomen pelvis 06/17/2017. 10/19/17 14:51 10/19/17 14:54 10/19/17 14:57 Reassessment Condition: Re-examined, Improved - Lab Interpretations Lab Results: 10/19/17 10:34 10/19/17 10:34 Lab Results 10/19/17 10:34: Urine Color Yellow, Urine Appearance Clear, Urine pH 7.0, Ur Specific [place] 1.015, Urine Protein Negative, Urine Glucose (UA) Negative, Urine Ketones Negative, Urine Blood Negative, Urine Nitrate Negative, Urine Bilirubin Negative, Urine Urobilinogen 0.2, Ur Leukocyte Esterase Negative 10/19/17 10:34: Sodium 140, Potassium 4.8, Chloride 101, Carbon Dioxide 26, Anion Gap 17, BUN 12, Creatinine 0.9, Est GFR ( Amer) > 60, Est GFR (Non- Af Amer) > 60, Random Glucose 104, Calcium 9.8, Magnesium 2.3 H, Total Bilirubin 0.4, AST 19, ALT 29, Alkaline Phosphatase 24 L, Troponin I < 0.01, Total Protein 7.9, Albumin 4.5, Globulin 3.3, Albumin/Globulin Ratio 1.4, Lipase 62 10/19/17 10:34: PT 11.9, INR 1.03, APTT 30.3 10/19/17 10:34: WBC 7.2 D, RBC 5.15, Hgb 15.0, Hct 43.9, MCV 85.2, MCH 29.1, MCHC 34.2, RDW 12.5, Plt Count 255, MPV 9.8, Gran % 67.5, Lymph % (Auto) 22.9, [place] % (Auto) 8.9 H, Eos % (Auto) 0.4 L, Baso % (Auto) 0.3, Gran # 4.85, Lymph # (Auto) 1.7, [place] # (Auto) 0.6, Eos # (Auto) 0.0, Baso # (Auto) 0.02 I have reviewed the lab results: Yes - RAD Interpretation Radiology Orders: 10/19/17 13:10 GALLBLADDER & PANCREAS [US] Stat Edge Drummer: Radiologist (see mdmd) - EKG Interpretation Interpreted by ED Physician: Yes (NSR flipped t waves avr, vi, iii.) Type: 12 lead EKG - Medication Orders Current Medication Orders: Discontinued Medications Acetaminophen (Tylenol 325mg Tab) 975 mg PO STAT STA Stop: 10/19/17 10:03 Last Admin: 10/19/17 10:40 Dose: 975 mg MAR Pain/Vitals Document 10/19/17 10:40 [email or web address] (Rec: 10/19/17 10:41 [email or web address] [id number]) Pain Reassessment Is This A Pain ReAssessment? No Sleep Is patient sleeping during reassessment? No Presence of Pain Presence of Pain Yes Pain Scale Used Pain Scale Used Numeric Location Pain Location Body Site Abdomen Description Constant Intensity 7 Scale Used Numeric Pain Behavior Facial Grimacing Aggravating Factors Changing Position Alleviating Factors Medication Al Hydrox/Mg Hydrox/Simethicone (Maalox Plus 30 Ml) 30 ml PO STAT STA Stop: 10/19/17 10:03 Last Admin: 10/19/17 10:40 Dose: 30 ml Sodium Chloride (Sodium Chloride 0.9%) 1,000 mls @ 1,000 mls/hr IV .Q1H STA Stop: 10/19/17 11:01 Last Admin: 10/19/17 10:41 Dose: 1,000 mls/hr eMAR Start Stop Document 10/19/17 10:41 [email or web address] (Rec: 10/19/17 10:41 [email or web address] [id number]) Intravenous Solution Start Date 10/19/17 Start Time 10:41 End Date 10/19/17 Ondansetron HCl (Zofran Inj) 4 mg IVP STAT STA Stop: 10/19/17 10:03 Last Admin: 10/19/17 10:41 Dose: 4 mg IVP Administration Document 10/19/17 10:41 [email or web address] (Rec: 10/19/17 10:41 [email or web address] [id number]) Charges for Administration # of IVP Administrations 1 Pantoprazole Sodium (Protonix Inj) 80 mg IVP STAT STA Stop: 10/19/17 10:03 Last Admin: 10/19/17 10:40 Dose: 80 mg IVP Administration Document 10/19/17 10:40 [email or web address] (Rec: 10/19/17 10:40 [email or web address] [id number]) Charges for Administration # of IVP Administrations 1 Disposition/Present on Arrival - Present on Arrival Any Indicators Present on Arrival: No History of DVT/PE: No History of Uncontrolled Diabetes: No Urinary Catheter: No History of Decub. Ulcer: No History Surgical Site Infection Following: None - Disposition Have Diagnosis and Disposition been Completed?: Yes Diagnosis: Gastritis Disposition: HOME/ ROUTINE Disposition Time: 14:52 Patient Plan: Discharge Patient Problems: Current Active Problems Problem Status Onset Gastritis Acute Condition: IMPROVED Discharge Instructions (ExitCare): Gastritis (DC) Additional Instructions: you were treated in the ED today for hx of anxeity, gastritis with normal gastric emptying test 10/06/17, and now having flare-up epigastric area with nausea and loose stool x4 without bile/blood and anxiousness but otherwise without any vomiting/headache/dizziness/difficulty breathing/chest pain/numbness /tingling/loss of limb function/pain with urination/thoughts to harm yourself or others or hallucinations. You were otherwise breathing easily, talking easily , good strength/sensation, walking easily, clear lungs, mild epigastric abdomen discomfort but no other area of discomfort, no fever temp 98.2, stable heart rate 74, stable breathing rate 18, excellent oxygen level 100% room air, elevated blood pressure 125/86 which we recommend repeat in 2-3 days primary care office to determine further treatment, you have blood tests no infection count 7, stable blood level hemoglobin 15/platelets 255, stable chemistry, heart blood test negative less than 0.01, urine test negative, lipase 62 negative, Ultrasound of gallbladder and pancreas negative with no cholelithiasis noted, ECG normal sinus rhythm, saline, protonix, zofran, observation done in the ED with improvement no noted epigastric discomfort, counselled to drink lots of fluids and monitor symptoms and thus discharged home. 1. Recommend omeprazole as directed for stomach acid control. 2. Recommend follow-up primary care 1-2 days to review symptoms, referral to gastroenterology clinic to review your symptoms to ensure no complications and for further care. 2. If any worsening pain, fever, chills, nausea, vomiting, difficulty breathing, numbness, loss of limb function, pain with urination or any medical condition then return to the ED. Prescriptions: Omeprazole 20 mg PO DAILY 10 Days #10 capsule.dr Forms: [facility] ([place])
[2017-10-19 10:55] LABS: ALB/GLOB RATIO 1.4 (1.1-1.8); ALBUMIN 4.5 g/dL (3.0-4.8); ALT/SGPT 29 U/L (7-56); AST/SGOT 19 U/L (17-59); BLOOD UREA NITROGEN 12 mg/dL (7-21); CALCIUM 9.8 mg/dL (8.4-10.5); GFR AFRICAN-AMERICAN > 60; GFR NON-AFRICAN AMERICAN > 60; LIPASE 62 U/L (23-300)
[2017-10-19 11:01] LABS: BASO # 0.02 K/mm3 (0.0-2.0); BASO % 0.3 % (0.0-3.0); EOS % 0.4 % (1.5-5.0); GRAN # 4.85 (1.4-6.5); GRAN % 67.5 % (50.0-68.0); LYMPH # 1.7 (1.2-3.4); LYMPH % 22.9 % (22.0-35.0); MEAN CELL VOLUME 85.2 fl (80.0-105.0); MEAN CORPUSCULAR HEMOGLOBIN 29.1 pg (25.0-35.0); MEAN CORPUSCULAR HGB CONC 34.2 g/dl (31.0-37.0); MEAN PLATELET VOLUME 9.8 fl (7.0-11.0); MONO # 0.6 (0.1-0.6); MONO % 8.9 % (1.0-6.0); RBC 5.15 10^6/uL (3.5-6.1); RED CELL DISTRIBUTION WIDTH 12.5 % (11.5-14.5); WHITE BLOOD COUNT 7.2 10^3/ul (4.5-11.0)
[2017-10-19 11:03] LABS: URINE BILIRUBIN NEGATIVE (NEGATIVE); URINE BLOOD NEGATIVE (NEGATIVE); URINE GLUCOSE (UA) NEGATIVE (NEGATIVE); URINE LEUKOCYTE ESTERASE NEGATIVE Leu/uL (NEGATIVE); URINE PROTEIN NEGATIVE mg/dL (<30 mg/dL); URINE UROBILINOGEN 0.2 E.U./dL (<1 E.U./dL)
[2017-10-19 11:06] LABS: TROPONIN I < 0.01 ng/mL; URINE APPEARANCE CLEAR (CLEAR); URINE COLOR YELLOW (YELLOW)
[2017-10-19 11:08] LABS: INR 1.03 (0.93-1.08); PARTIAL THROMBOPLASTIN TIME 30.3 Seconds (25.1-36.5); PROTHROMBIN TIME 11.9 SECONDS (9.4-12.5)
--- NOTE | 2017-10-19 14:39 | US ---
HISTORY: 52 year-old male, with right upper quadrant/epigastric discomfort COMPARISON: Comparison made with prior abdominal ultrasound dated 11/27/[address] scan abdomen pelvis dated 06/17/2017 TECHNIQUE: Sonographic evaluation of the right upper quadrant of the abdomen. FINDINGS: LIVER: Measures 16.1 cm in length. Normal echogenicity of the liver parenchyma. No mass. No intrahepatic bile duct dilatation. GALLBLADDER: Unremarkable. No gallstones. No pericholecystic fluid collections. No sonographic Barnett sign reported. COMMON BILE DUCT: Measures approximately 3.7 mm. No stones. No dilatation. PANCREAS: Unremarkable as visualized. No mass. No ductal dilatation. RIGHT KIDNEY: Measures 10.2 x 5.5 x 5.5 cm in length. Normal echogenicity. No calculus, mass, or hydronephrosis. AORTA: No aneurysmal dilatation. IVC: Unremarkable. OTHER FINDINGS: None . IMPRESSION: Intra abdominal no evidence of cholelithiasis. No significant interval change when compared with prior abdominal ultrasound 11/27/[address] scan abdomen pelvis 06/17/2017 [facility]
[2017-10-19 14:53] VITALS: PULSE 59
[2017-10-19 15:05] VITALS: BP 131/82; RESP 19
--- NOTE | 2017-10-20 14:11 | CARD ---
APPROVED REPORT EKG Measurement Heart [id number] <Conclusion> Normal sinus rhythm Normal ECG
== END 2017-10-19 15:08 | disposition home or self-care (01) ==
LOC: ED 09:26
DX: K29.70 Gastritis, unspecified, without bleeding (principal); I10 Essential (primary) hypertension; E03.9 Hypothyroidism, unspecified; Z87.891 Personal history of nicotine dependence
CPT/HCPCS: 76705; 80053; 81003; 83690; 83735; 84484; 85025; 85610; 85730; 87086; 93005; 96374; 96375; 99282; C9113; J2405; J7030

== ENCOUNTER 2017-11-13 09:29 | Inpatient (IN) | payer BC ==
[2017-11-13 09:30] VITALS: BMI 27.3
--- NOTE | 2017-11-13 09:53 | ED PDOC ---
Arrival/HPI - General Historian: Patient - History of Present Illness Time/Duration: > week Symptom Onset: Gradual Symptom Course: Improving Quality: Aching Severity Level: 8 - General Chief Complaint: Anxiety - History of Present Illness Narrative History of Present Illness (Text): Patient is a 52 year old male with a past medical history of H. Pylori gastritis , GERD, IBS, gastroparesis who presents to the emergency department for evaluation and treatment of anxiety, racing thoughts, and inability to achieve sleep. States he has been experiencing these symptoms for the past year but have exacerbated in the past week with no specific provoking event. Admits to baseline chronic epigastic pain with associated nausea. The pain is characterized as being dull in nature. Denies SI, HI, and auditory/visual hallucinations. Denies fever, chills, chest pain, SOB at rest, vomiting, diarrhea, and urinary symptoms. PMD: Dr. Muse ([facility]) Past Medical History - Provider Review Nursing Documentation Reviewed: Yes - Travel History Have you recently traveled outside [place] w/in the past 3 mons?: No - Past History Past History: No Previous - Infectious Disease Hx of Infectious Diseases: None - Tetanus Immunization Tetanus Immunization: Unknown - Cardiac Hx Cardiac Disorders: Yes Hx Cardiac Arrhythmia: Yes Hx Hypertension: Yes Hx Mitral Valve Prolapse: Yes - Pulmonary Hx Respiratory Disorders: Yes Hx Asthma: Yes - Neurological Hx Neurological Disorder: Yes Hx Dizziness: Yes - HEENT Hx HEENT Disorder: Yes - Renal Hx Renal Disorder: No - Endocrine/Metabolic Hx Endocrine Disorders: Yes Hx Hypothyroidism: Yes - Hematological/Oncological Hx Blood Disorders: No - Integumentary Hx Dermatological Disorder: No - Musculoskeletal/Rheumatological Hx Musculoskeletal Disorders: Yes Hx Falls: Yes Hx Fractures: Yes (left rib) - Gastrointestinal Hx Gastrointestinal Disorders: Yes Hx Gastritis: Yes Hx Gastroesophageal Reflux: Yes Other/Comment: H. Pylori, IBS, biliary colic, GASTRO PARESIS - Genitourinary/Gynecological Hx Genitourinary Disorders: No - Psychiatric Hx Psychophysiologic Disorder: Yes Hx Anxiety: Yes Hx Depression: Yes Hx Substance Use: No - Past Surgical History Past Surgical History: No Previous - Surgical History Hx Cardiac Catheterization: Yes - Anesthesia Hx Anesthesia: Yes Hx Anesthesia Reactions: No Hx Malignant Hyperthermia: No - Suicidal Assessment Feels Threatened In Home Enviroment: No Family/Social History - Physician Review Nursing Documentation Reviewed: Yes Family/Social History: Unknown Family HX Smoking Status: Former Smoker Hx Alcohol Use: Yes (OCCASIONAL.LAST DRANK AUGUST 2015 BEER) Hx Substance Use: No Hx Substance Use Treatment: No Allergies/Home Meds Allergies/Adverse Reactions: Allergies aspirin Allergy (Verified 11/13/17 09:39) stomach inflammation stomach inflammation Penicillins Allergy (Verified 11/13/17 09:39) ANAPHYLAXIS Home Medications: Home Meds Medication Instructions Recorded Confirmed Alprazolam [Xanax] 0.5 mg PO BID PRN 10/19/17 11/13/17 Ondansetron HCl [Zofran] 4 mg PO Q6 PRN 10/19/17 11/13/17 Zolpidem Tartrate [Ambien Cr] 12.5 mg PO HS 10/19/17 11/13/17 amLODIPine [Norvasc] 5 mg PO DAILY 10/19/17 11/13/17 Review of Systems - Review of Systems Constitutional: Normal Eyes: Normal ENT: Normal Respiratory: SOB (only when anxious ) Cardiovascular: Normal Gastrointestinal: Abdominal Pain, Nausea Genitourinary Male: Normal Musculoskeletal: Normal Skin: Normal Neurological: Normal Endocrine: Normal Hemo/Lymphatic: Normal Psychiatric: Anxiety, Depression. absent: Suicidal Ideation Physical Exam - Systems Exam Head: Present: Atraumatic, Normocephalic Pupils: Present: PERRL Extroacular Muscles: Present: EOMI Conjunctiva: Present: Normal Mouth: Present: Moist Mucous Membranes Nose (External): Present: Atraumatic Neck: Present: Normal Range of Motion Respiratory/Chest: Present: Clear to Auscultation, Good Air Exchange. No: Respiratory Distress, Accessory Muscle Use Cardiovascular: Present: Regular Rate and Rhythm, Normal S1, S2. No: Murmurs Abdomen: No: Tenderness, Distention, Peritoneal Signs Back: Present: Normal Inspection Upper Extremity: Present: Normal Inspection. No: Cyanosis, Edema Lower Extremity: Present: Normal Inspection. No: Edema Neurological: Present: GCS=15, CN II-XII Intact, Speech Normal Skin: Present: Warm, Dry, Normal Color. No: Rashes Psychiatric: Present: Alert, Oriented x 3, Anxious. No: Normal Affect, Normal Mood, Suicidal Ideation, Homicidal Ideation, Delusional, Hallucinations Vital Signs Temp Pulse Resp BP Pulse Ox 11/13/17 09:50 98.4 F 86 17 140/95 H 99 Medical Decision Making - EKG Interpretation Interpreted by ED Physician: Yes Type: 12 lead EKG ED Course and Treatment: Assessment and Plan: Patient is a 52 year old male with a past medical history of H. Pylori gastritis , GERD, IBS, gastroparesis who presents to the emergency department for evaluation and treatment of anxiety, racing thoughts, and inability to achieve sleep. Anxiety Insomnia 11/13/17 10:08 - CBC, CMP - ETOH, aspirin, acetamenophen levels, UDS - EKG, Chest Xray, UA 11/13/17 11:59 - labs reviewed and appreciated - PES evaluation completed- will be accepted for inpatient psychiatry - patient is medically cleared for psych evaluation 11/13/17 12:25 - patient admitted to psych unit (Willie Parson) 11/13/17 10:12 Patient Seen With Resident: In agreement with resident note which contains more details about the patient. Patient was seen and evaluated with resident. Came up with plan and treatment together.. 11/13/17 11:12 Patient is medically cleared for psych evaluation. (Jona Vaca) - Lab Interpretations Lab Results: 11/13/17 10:40 11/13/17 10:40 Lab Results 11/13/17 11:52: Urine Opiates Screen Negative, Urine Methadone Screen Negative, Ur Barbiturates Screen Negative, Ur Phencyclidine Scrn Negative, Ur Amphetamines Screen Negative, U Benzodiazepines Scrn Negative, U Oth Cocaine Metabols Negative, U Cannabinoids Screen Negative 11/13/17 11:52: Urine Color Yellow, Urine Appearance Clear, Urine pH 7.5, Ur Specific [place] 1.010, Urine Protein Negative, Urine Glucose (UA) Negative, Urine Ketones Negative, Urine Blood Negative, Urine Nitrate Negative, Urine Bilirubin Negative, Urine Urobilinogen 0.2, Ur Leukocyte Esterase Negative 11/13/17 10:40: Alcohol, Quantitative < 10 11/13/17 10:40: Salicylates < 1 L, Acetaminophen < 10.0 L 11/13/17 10:40: Sodium 138, Potassium 4.1, Chloride 103, Carbon Dioxide 23, Anion Gap 16, BUN 11, Creatinine 0.8, Est GFR ( Amer) > 60, Est GFR (Non- Af Amer) > 60, Random Glucose 102, Calcium 9.5, Total Bilirubin 0.2, AST 15 L D , ALT 19, Alkaline Phosphatase 28 L, Total Protein 7.3, Albumin 4.1, Globulin 3.2, Albumin/Globulin Ratio 1.3 11/13/17 10:40: WBC 7.9, RBC 4.79, Hgb 13.9 L, Hct 40.0 L, MCV 83.5, MCH 29.0, MCHC 34.8, RDW 12.4, Plt Count 254, MPV 9.6, Gran % 72.9 H, Lymph % (Auto) 18.7 L, [place] % (Auto) 7.7 H, Eos % (Auto) 0.3 L, Baso % (Auto) 0.4, Gran # 5.75, Lymph # (Auto) 1.5, [place] # (Auto) 0.6, Eos # (Auto) 0.0, Baso # (Auto) 0.03 - RAD Interpretation Radiology Orders: 11/13/17 09:55 CHEST ONE VIEW [RAD] Stat - EKG Interpretation EKG Interpretation (Text): NSR HR 80bpm, QTc 382ms 11/13/17 10:20 (Willie Parson) Disposition/Present on Arrival - Present on Arrival Any Indicators Present on Arrival: No History of DVT/PE: No History of Uncontrolled Diabetes: No Urinary Catheter: No History of Decub. Ulcer: No History Surgical Site Infection Following: None - Disposition Have Diagnosis and Disposition been Completed?: Yes Disposition Time: 12:24 - Disposition Diagnosis: Anxiety Disposition: HOSPITALIZED Patient Problems: Current Active Problems Problem Status Onset Anxiety Acute Condition: GOOD
--- NOTE | 2017-11-13 10:17 | RAD ---
PROCEDURE: CHEST RADIOGRAPH, 1 VIEW HISTORY: anxiety COMPARISON: 08/07/2017 FINDINGS: LUNGS: Clear. PLEURA: No pneumothorax or pleural fluid seen. CARDIOVASCULAR: Normal. OSSEOUS STRUCTURES: No significant abnormalities. VISUALIZED UPPER ABDOMEN: Normal. OTHER FINDINGS: None. IMPRESSION: No active disease.
[2017-11-13 10:44] LABS: BASO # 0.03 K/mm3 (0.0-2.0); BASO % 0.4 % (0.0-3.0); EOS % 0.3 % (1.5-5.0); GRAN # 5.75 (1.4-6.5); GRAN % 72.9 % (50.0-68.0); HEMOGLOBIN 13.9 g/dL (14.0-18.0); LYMPH # 1.5 (1.2-3.4); LYMPH % 18.7 % (22.0-35.0); MEAN CELL VOLUME 83.5 fl (80.0-105.0); MEAN CORPUSCULAR HGB CONC 34.8 g/dl (31.0-37.0); MEAN PLATELET VOLUME 9.6 fl (7.0-11.0); MONO # 0.6 (0.1-0.6); MONO % 7.7 % (1.0-6.0); RBC 4.79 10^6/uL (3.5-6.1); RED CELL DISTRIBUTION WIDTH 12.4 % (11.5-14.5); WHITE BLOOD COUNT 7.9 10^3/ul (4.5-11.0)
[2017-11-13 11:05] LABS: ACETAMINOPHEN < 10.0 ug/ml (10.0-20.0); SALICYLATE < 1 mg/dL (2.0-20.0)
[2017-11-13 11:11] LABS: ALB/GLOB RATIO 1.3 (1.1-1.8); ALBUMIN 4.1 g/dL (3.0-4.8); ALT/SGPT 19 U/L (7-56); AST/SGOT 15 U/L (17-59); BLOOD UREA NITROGEN 11 mg/dL (7-21); CALCIUM 9.5 mg/dL (8.4-10.5); GFR AFRICAN-AMERICAN > 60; GFR NON-AFRICAN AMERICAN > 60
[2017-11-13 11:59] LABS: PH,URINE 7.5 (4.7-8.0); URINE BILIRUBIN NEGATIVE (NEGATIVE); URINE BLOOD NEGATIVE (NEGATIVE); URINE GLUCOSE (UA) NEGATIVE (NEGATIVE); URINE LEUKOCYTE ESTERASE NEGATIVE Leu/uL (NEGATIVE); URINE PROTEIN NEGATIVE mg/dL (<30 mg/dL); URINE UROBILINOGEN 0.2 E.U./dL (<1 E.U./dL)
[2017-11-13 12:03] LABS: URINE APPEARANCE CLEAR (CLEAR); URINE COLOR YELLOW (YELLOW)
[2017-11-13 12:18] LABS: BENZODIAZEPINES, UR NEGATIVE (NEGATIVE)
[2017-11-13 12:19] LABS: BARBITURATES, UR NEGATIVE (NEGATIVE); OPIATES, UR NEGATIVE (NEGATIVE); PHENCYCLIDINE, UR NEGATIVE (NEGATIVE)
[2017-11-13 13:48] VITALS: O2SAT 100
--- NOTE | 2017-11-13 15:04 | CARD ---
APPROVED REPORT EKG Measurement Heart [id number] <Conclusion> Normal sinus rhythm with sinus arrhythmia Normal ECG
--- NOTE | 2017-11-13 17:21 | PCM.BM ---
<JohannaUgo - Last Filed: 11/13/17 17:17> Treatment Plan Problems - Problems identified on initial assessmt ALTERED SLEEP PATTERN Date Initiated: 11/13/17 Time Initiated: 17:19 Assessment reference: HP, NA Status: Active DEBILITATING ANXIETY Date Initiated: 11/13/17 Time Initiated: 17:20 Assessment reference: HP, NA Status: Active UNREASONABLE FEARS Date Initiated: 11/13/17 Time Initiated: 17:21 Assessment reference: HP, NA Status: Active Treatment assets and liabiliti Patient Assests: cooperative, educated, resourceful, self-reliant, ADL independent, negotiates basic needs, good past tx response, cognitively intact Patient Liabilities: live alone, poor support system, medical problems - Milieu Protocol Maintain good personal hygiene: daily Encourage regular showers, daily Remind patient to perform daily oral care, daily Assist patient to perform ADL's Maintain personal safety: daily Educate patient to report safety concerns to staff, daily Monitor environment for contraband/sharps Medication safety: Monitor for expected outcome, potential side effects: daily, Assess barriers to learning: daily, Assess readiness for medication education: daily Discharge/Continuing Care - Education Needs Education Needs: Patient Medication, Patient Diagnosis/Disease Process, Patient Coping Skills, Patient Community resources, Patient Activities of Daily Living, Patient Pain, Patient Health Practices/Safety, Patient Personal Hygiene/Grooming - Discharge Discharge Criteria: Tolerates medication w/o severe side effects, Free of Suicidal thoughts, Free of agitation, Normal sleep pattern, Ability to care for self <Shelia Garcia - Last Filed: 11/14/17 09:51> - Diagnosis (1) Anxiety Status: Acute Interventions: group, milieu and supportive tx Xanax 1 mg po TID for anxiety Seroquel 50 mg AMHS for lability and, off label for poor sleep Ambien 10 mg HS for insomnia 11/14/17 09:51 (2) Major depression Status: Acute Interventions: * group, milieu and supportive tx * Xanax 1 mg po TID for anxiety * Seroquel 50 mg AMHS for lability and, off label for poor sleep * Ambien 10 mg HS for insomnia 11/14/17 09:51 <Chanel Rouse - Last Filed: 11/16/17 16:25> Family Contact Family involvement: Famliy/SO not involved
[2017-11-13] MEDS ORDERED: Alum-Mag Hydrox-Simethicone Susp (30 mL) PO PRN (19:53)
[2017-11-13] MEDS ORDERED: Magnesium Hydroxide Susp 30 ml UD PO PRN (19:53)
[2017-11-14 07:18] VITALS: RESP 20
[2017-11-14 07:34] LABS: GLUCOSE,FASTING 99 mg/dL (65-110); HDL CHOLESTEROL 37 mg/dL (29-60)
[2017-11-14 07:45] LABS: LDL CHOLESTEROL 107 mg/dL (0-129)
[2017-11-14 08:00] LABS: FREE T4 1.06 ng/dL (0.78-2.19)
[2017-11-14] MEDS: POLYETHYLENE GLYCOL 3350 17 GM/Dose PACKET PO SCH ×2 (08:24→17:25)
[2017-11-14] MEDS: Pantoprazole 40 mg EC Tab PO SCH (08:27)
--- NOTE | 2017-11-14 09:54 | PCM.PSYCH ---
Initial Psychiatric Evaluation - Initial Psychiatric Evaluation Type of Admission: Voluntary History of Present Illness and Precipitating Events: Patient is a 52 y/o single white male with history of depression and anxiety, one prior psychiatric admission at [facility] in 01/2017, no history of SA, in outpatient treatment with Dr. Gómez Diggs, compliant with prescribed Xanax and Ambien CR who presented to ER complaining of anxiety, depression, racing thoughts and insomnia. I met with patient at bedside. He is cooperative and well oriented to month, year, location and circumstances. Grooming is adequate. Patient reports that he has been depressed with symptoms of lability, anxiety, "feeling jumpy and overwhelmed", depression, insomnia and poor frustration tolerance. Expresses "everything just hit me all at once". 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 He is supposed to return to work the first week of November and doesn't want to return during the week of November 25. Apparently he requested an extra week of vacation, it is unclear if this request was granted. Patient feels that his anxiety and insomnia is overwhelming. He has been taking xanax and ambien CR with minimal improvement for the past month. Thought process is generally coherent and affect is constricted. Patient denies any perceptual disturbance and he is not suicidal or homicidal. Delusions we're not elicited. There were no behavioral issues overnight. PSYCHIATRIC HISTORY One prior psychiatric hospitalization 02/13/17-02/16/17. Discharged on: remeron 30 mg po HS. Given diagnosis of Anxiety disorder due to general medical condition with panic attack No history of suicide attempts. Patient has been in psychiatric care with Dr. Gómez Diggs and compliant with xanax 0.5 mg po TID and Ambien CR 12.5 mg po HS. Prior medication trial with restoril. SOCIAL HISTORY Born and raised in [place]. Patient is single and he has no children. He lives by himself in an apartment. He graduated high school. 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 Received workman's compensation during this time. Patient denies any tobacco, drug or alcohol use. Current Medications: Active Medications Generic Name Dose Route Start Last Admin Trade Name Freq PRN Reason Stop Dose Admin Acetaminophen 650 mg 11/13/17 15:36 11/13/17 22:03 Tylenol 325mg Tab PO 650 mg Q6H PRN Administration Pain, Mild (1-3) Al Hydrox/Mg Hydrox/Simethicone 30 ml 11/13/17 19:53 11/13/17 19:59 Maalox Plus 30 Ml PO 30 ml DAILY PRN Administration Upset Stomach Alprazolam 1 mg 11/13/17 18:00 Xanax PO TID COUNT INCLUDES THE [facility] Protocol Amlodipine Besylate 10 mg 11/14/17 08:00 Norvasc PO DAILY COUNT INCLUDES THE [facility] Docusate Sodium 100 mg 11/14/17 08:00 Colace PO BID COUNT INCLUDES THE [facility] Lorazepam 2 mg 11/13/17 15:43 11/13/17 16:10 Ativan PO 2 mg Q6H PRN Administration Agitation Protocol Lorazepam 2 mg 11/13/17 15:46 Ativan IM Q6H PRN Agitation Protocol Magnesium Hydroxide 30 ml 11/13/17 19:53 Milk Of Magnesia PO DAILY PRN Constipation Pantoprazole Sodium 40 mg 11/14/17 07:00 Protonix Ec Tab PO 0600 COUNT INCLUDES THE [facility] Polyethylene Glycol 17 gm 11/14/17 08:00 Miralax PO BID COUNT INCLUDES THE [facility] Quetiapine Fumarate 50 mg 11/13/17 22:00 11/13/17 22:03 Seroquel PO 50 mg AMHS COUNT INCLUDES THE [facility] Administration Protocol Sodium Phosphate 135 ml 11/13/17 15:37 Fleet Enema RC DAILY PRN Constipation Zolpidem Tartrate 10 mg 11/13/17 22:00 11/13/17 22:02 Ambien PO 10 mg HS COUNT INCLUDES THE [facility] Administration Protocol Past Psychiatric History - Past Psychiatric History Pertinent Medical Hx (Current Medical&Sleep Prob, Allergies): Allergies Allergy/AdvReac Type Severity Reaction Status Date / Time aspirin Allergy stomach Verified 11/13/17 09:39 inflammation Penicillins Allergy ANAPHYLAXIS Verified 11/13/17 09:39 Acetaminophen [Tylenol 325mg tab] 650 mg PO Q6H PRN tab 06/18/17 Alprazolam [Xanax] 0.5 mg PO BID PRN 10/19/17 Omeprazole 20 mg PO DAILY 10 Days #10 capsule. 10/19/17 Ondansetron HCl [Zofran] 4 mg PO Q6 PRN 10/19/17 Zolpidem Tartrate [Ambien Cr] 12.5 mg PO HS 10/19/17 amLODIPine [Norvasc] 5 mg PO DAILY 10/19/17 Mental Status Examination - Personal Presentation Personal Presentation: Looks stated age - Affect Affect: Constricted - Reliability in Providing Information Reliability in Providing Information: Fair - Speech Speech: Organized - Mood Mood: Depressed, Anxious - Formal Thought Process Formal Thought Process: No Impairment - Obsessions/Compulsions Obsessions: No Compulsions: No - Cognitive Functions Orientation: Person, Place, Situation Sensorium: Alert Attention/Concentration: Attentive Estimate of Intelligence: Average Judgement: Intact, as evidence by: Other DSM 5 DX - DSM 5 DSM 5 Diagnosis: Major Depression, Severe DEUCE Panic Disorder - Recommended/Plan of Treatment Treatment Recommendations and Plan of Treatment: * group, milieu and supportive tx * Xanax 1 mg po TID for anxiety * Seroquel 50 mg AMHS for lability and, off label for poor sleep * Ambien 10 mg HS for insomnia * Vitals reviewed and noted below: 11/14/17 11/14/17 07:16 08:26 Temperature 98.2 F Pulse Rate 70 Respiratory 20 Rate Blood Pressure 107/63 107/63 ER LABS AND STUDIES 11/13/17 11:52: Urine Opiates Screen Negative, Urine Methadone Screen Negative, Ur Barbiturates Screen Negative, Ur Phencyclidine Scrn Negative, Ur Amphetamines Screen Negative, U Benzodiazepines Scrn Negative, U Oth Cocaine Metabols Negative, U Cannabinoids Screen Negative 11/13/17 11:52: Urine Color Yellow, Urine Appearance Clear, Urine pH 7.5, Ur Specific [place] 1.010, Urine Protein Negative, Urine Glucose (UA) Negative, Urine Ketones Negative, Urine Blood Negative, Urine Nitrate Negative, Urine Bilirubin Negative, Urine Urobilinogen 0.2, Ur Leukocyte Esterase Negative 11/13/17 10:40: Alcohol, Quantitative < 10 11/13/17 10:40: Salicylates < 1 L, Acetaminophen < 10.0 L 11/13/17 10:40: Sodium 138, Potassium 4.1, Chloride 103, Carbon Dioxide 23, Anion Gap 16, BUN 11, Creatinine 0.8, Est GFR ( Amer) > 60, Est GFR (Non- Af Amer) > 60, Random Glucose 102, Calcium 9.5, Total Bilirubin 0.2, AST 15 L D , ALT 19, Alkaline Phosphatase 28 L, Total Protein 7.3, Albumin 4.1, Globulin 3.2, Albumin/Globulin Ratio 1.3 11/13/17 10:40: WBC 7.9, RBC 4.79, Hgb 13.9 L, Hct 40.0 L, MCV 83.5, MCH 29.0, MCHC 34.8, RDW 12.4, Plt Count 254, MPV 9.6, Gran % 72.9 H, Lymph % (Auto) 18.7 L, [place] % (Auto) 7.7 H, Eos % (Auto) 0.3 L, Baso % (Auto) 0.4, Gran # 5.75, Lymph # (Auto) 1.5, [place] # (Auto) 0.6, Eos # (Auto) 0.0, Baso # (Auto) 0.03 - EKG Interpretation NSR HR 80bpm, QTc 382ms 11/13/17 10:20 (Willie Parson) FLOOR LABS 11/14/17 11/14/17 11/14/17 07:00 07:00 07:00 Fasting Glucose 99 Triglycerides 118 Cholesterol 175 LDL Cholesterol Direct 107 HDL Cholesterol 37 Free T4 1.06 Thyroxine (T4) 7.3 TSH 3rd Generation 1.63 - Smoking Cessation Smoking Cessation Initiated: No
[2017-11-14] MEDS ORDERED: Ergocalciferol 50,000 Intl Units Cap PO SCH (15:45)
--- NOTE | 2017-11-15 01:49 | CON ---
DATE: REQUESTING PHYSICIAN: Valeria Flores MD. REASON FOR CONSULTATION: Requesting history and medical management for hypertension, gastroesophageal reflux disease, gastroparesis. HISTORY OF PRESENT ILLNESS: Patient is a 52-year-old male who presented and admitted through the emergency room on 11/13/2017 for increasing anxiety, increasing depression. Patient came to the emergency room via the [facility]. Patient states that because of his aggravated medical problems including abdominal pain, constipation, reflux, and chronic back pain and herniated disk, patient is becoming more stressed, anxious, and depressed. REVIEW OF SYSTEMS: Thirteen system review was done, pertinent positives and negatives dictated above. CODE STATUS: Full code. LIVING WILL AND ADVANCE DIRECTIVE: None. ALLERGIES: TO ASPIRIN AND PENICILLIN. Height is 5 feet 8 inches. Weight is 175. BMI is 27. HOME MEDICATIONS: 1. Norvasc 5 mg daily. 2. Ambien 12.5 at bedtime. 3. Zofran 4 mg every 6 p.r.n. 4. Prilosec 20 mg daily. 5. Xanax 0.5 mg b.i.d. p.r.n. 6. Tylenol 650 every 6 p.r.n. 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 SOCIAL HISTORY: Occasional alcohol, occasional cigar use. Patient denies any communicable or transmissible diseases. PAST MEDICAL AND SURGICAL HISTORY: History of endoscopy, colonoscopy, history of hypertension, history of questionable gastroparesis, history of hiatal hernia, history of gastroesophageal reflux disease, history of Helicobacter pylori gastritis, history of questionable gastric duodenal ulcer, history of lumbar herniated disk as per the patient, history of back pain, history of hypertension, history of insomnia, history of anxiety, history of depression, history of gastritis, history of lumbar MRI done by unknown physician. 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 Gómez Garcia as an outpatient, history of mood disorder and depressive disorder, history of questionable syncope, history of abdominal pain, history of questionable biliary colic, history of severe acid reflux, history of gastric ulcer with H. pylori, history of gastric body and antral gastritis, history of nonerosive gastroesophageal reflux disease, history of chronic duodenitis, past medical history is significant for history of insomnia, history of anhedonia, possible panic disorder, history of fatty liver. History of constipation. FAMILY HISTORY: Not available. PHYSICAL EXAMINATION: GENERAL: Patient is seen and examined in room 514. Patient is ambulating in the room. VITAL SIGNS: T-max 98.4. Heart rate 70, 80 to 86. Blood pressure in the last 24 to 48 hours is 145/95, 152/96, 107/63. Respiration 18 to 20, O2 sat is 100%. HEENT: Head: Normocephalic, atraumatic. HEENT examination shows pink conjunctivae. Anicteric sclerae, dry oral mucosa. NECK: No neck rigidity. CHEST: Kyphosis. LUNGS: No rales, crackles, or wheezing. CARDIOVASCULAR: S1, S2. Regular rhythm. No audible murmur, gallop, or rub at this time. ABDOMEN. Positive bowel sounds. Mild epigastric periumbilical tenderness. No rebound tenderness. Positive bowel sounds. No hepatosplenomegaly. No guarding. No rigidity. No rebound tenderness. GENITALIA: Male. RECTAL: Deferred. EXTREMITY: Shows no pitting, no calf numbness, no Thuy's signs. Romberg sign is negative. Gait is intact. Straight leg is negative bilaterally. Heel-toe and tandem gait is intact. Plantars are downward. DTRs are 2+. No foot drop noted. Gait is independent. PSYCHIATRIC: As per psychiatrist's evaluation. MUSCULOSKELETAL: Shows a body mass index of 27. Cranial nerves II through XII intact. DIAGNOSTIC STUDIES: On 11/13/2017, CBC reviewed. Hemoglobin/hematocrit 13.9 and 40. Granulocytes 73. Chemistry: Cholesterol was reviewed. Cholesterol is 175, LDL 107, vitamin D 18.9. Thyroid profile is normal. Urinalysis negative. Urine drug screen is negative. Tylenol, salicylate, alcohol level negative. Chest x-ray: No active disease. EKG is normal sinus rhythm. Patient was seen and evaluated in the emergency room by the ER physician, 11/13/2017 where the patient presented with anxiety, racing thought, inability to sleep. Patient was medically cleared in the emergency room for admission to Psychiatry floor for anxiety exacerbation and exacerbation of depression. IMPRESSION: 1. Acute exacerbation of anxiety and depression and insomnia. 2. History of chronic constipation. 3. History of hypertension. 4. History of hyperlipidemia. 5. Major depression. 6. General anxiety disorder. 7. Panic disorder. 8. Hypovitaminosis D. 9. Constipation. PLAN: At this time, patient is to be continued on the inpatient psychiatric treatment. 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 Loera, which has been ordered. Patient's RPR is pending. MEDICATIONS: Patient is on Ambien 10 mg at bedtime, Ativan 2 mg p.o. or IM every 6 hours p.r.n., Colace 100 mg twice a day, vitamin D 50,000 units weekly, Fleet's enema p.r.n., Lipitor 40 mg daily, Maalox and milk of magnesia p.r.n., MiraLax 17 g twice a day, Norvasc was increased to 10 mg daily but will be adjusted down to 5 mg daily because patient's blood pressure has normalized and the patient's blood pressure will be monitored closely. If needed, patient's antihypertensives will be titrated. So, at present, patient's Norvasc will be decreased to 5 mg and patient's blood pressure is acceptable. Patient is on Protonix 40 mg daily, Seroquel 50 mg a.m. and at bedtime, Xanax 1 mg three times a day. Patient is on an altered GI hepatic diet. At present, patient's further management will be dependent upon the patient's clinical condition, hemodynamic status, and as per the patient's response to therapeutic intervention. Patient's hemoglobin A1c and RPR is pending. Patient, otherwise, appears to be medically stable. Patient will be followed up closely while patient is on Psychiatry floor. Patient will be continued on the above therapeutic intervention. Dictated and electronically signed, not read. Dyllan Delarosa MD
[2017-11-15] MEDS: POLYETHYLENE GLYCOL 3350 17 GM/Dose PACKET PO SCH ×2 (08:36→17:31)
[2017-11-15] MEDS: Pantoprazole 40 mg EC Tab PO SCH (08:38)
--- NOTE | 2017-11-15 09:33 | PCM.PYCHPN ---
Psychiatric Progress Note - Psychiatric Progress Note Patient seen today, length of contact: 25 min Problems Identified/Issues Discussed: History of Present Illness and Precipitating Events: Patient is a 52 y/o single white male with history of depression and anxiety, one prior psychiatric admission [place] [facility] [place], no history of SA, in outpatient treatment with Dr. Gómez Diggs, compliant with prescribed Xanax and Ambien CR who presented to ER complaining of anxiety, depression, racing thoughts and insomnia. I met with patient at bedside. He is cooperative and well oriented to month, year, location and circumstances. Grooming is adequate. Patient reports that he has been depressed with symptoms of lability, anxiety, "feeling jumpy and overwhelmed", depression, insomnia and poor frustration tolerance. Expresses "everything just hit me all at once". 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 He is supposed to return to work the first week of November and doesn't want to return during the week of November 25. Apparently he requested an extra week of vacation, it is unclear if this request was granted. Patient feels that his anxiety and insomnia is overwhelming. He has been taking xanax and ambien CR with minimal improvement for the past month. Thought process is generally coherent and affect is constricted. Patient denies any perceptual disturbance and he is not suicidal or homicidal. Delusions we're not elicited. There were no behavioral issues overnight. PSYCHIATRIC HISTORY One prior psychiatric hospitalization 02/13/17-02/16/17. Discharged on: remeron 30 mg po HS. Given diagnosis of Anxiety disorder due to general medical condition with panic attack No history of suicide attempts. Patient has been in psychiatric care with Dr. Gómez Diggs and compliant with xanax 0.5 mg po TID and Ambien CR 12.5 mg po HS. Prior medication trial with restoril. SOCIAL HISTORY Born and raised in [place]. Patient is single and he has no children. He lives by himself in an apartment. He graduated high school. 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 Received workman's compensation during this time. Patient denies any tobacco, drug or alcohol use. PROGRESS NOTE I met with patient at bedside again today. He remains cooperative and well oriented to month, year, location and circumstances. Grooming is adequate and patient can express his needs well. Patient reports continued depression and anxiety however feels emotions are in better control today. Slept well after Ativan 2 mg was given last night. Denies any side effects from his medications or any new discomfort or pain. Thought process is generally coherent however patient can be overinclusive and ramble at times. Affect is constricted. Patient denies any perceptual disturbance and he is not suicidal or homicidal. Delusions were not elicited. Patient has been groomed, visible and communicative on the unit. There were no behavioral issues over the weekend. Diagnostic Results: Major Depression, Severe DEUCE Panic Disorder Medication Change: No Medical Record Reviewed: Yes Mental Status Examination - Cognitive Function Orientation: Person, Place, Situation Attention: WNL Concentration: WNL - Mood Mood: Depressed, Anxious - Affect Affect: Constricted - Formal Thought Process Formal Thought Process: No Impairment - Suicidal Ideation Suicidal Ideation: No - Homicidal Ideation Homicidal Ideation: No Goal/Treatment Plan - Goal/Treatment Plan Progress Toward Problem(s) and Goals/Treatment Plan: * group, milieu and supportive tx * Xanax 1 mg po TID for anxiety * Seroquel 50 mg AMHS increased to 50 mg AM and 100 mg HS for lability and, off label for poor sleep * Ambien 10 mg HS for insomnia * Appreciate f/u by Dr. Delarosa on 11/14/17~will continue to f/u * Vitals reviewed and noted below: 11/14/17 11/14/17 07:16 16:00 Temperature 98.2 F Pulse Rate 70 56 L Respiratory 20 Rate Blood Pressure 107/63 118/81 ER LABS AND STUDIES 11/13/17 11:52: Urine Opiates Screen Negative, Urine Methadone Screen Negative, Ur Barbiturates Screen Negative, Ur Phencyclidine Scrn Negative, Ur Amphetamines Screen Negative, U Benzodiazepines Scrn Negative, U Oth Cocaine Metabols Negative, U Cannabinoids Screen Negative 11/13/17 11:52: Urine Color Yellow, Urine Appearance Clear, Urine pH 7.5, Ur Specific [place] 1.010, Urine Protein Negative, Urine Glucose (UA) Negative, Urine Ketones Negative, Urine Blood Negative, Urine Nitrate Negative, Urine Bilirubin Negative, Urine Urobilinogen 0.2, Ur Leukocyte Esterase Negative 11/13/17 10:40: Alcohol, Quantitative < 10 11/13/17 10:40: Salicylates < 1 L, Acetaminophen < 10.0 L 11/13/17 10:40: Sodium 138, Potassium 4.1, Chloride 103, Carbon Dioxide 23, Anion Gap 16, BUN 11, Creatinine 0.8, Est GFR ( Amer) > 60, Est GFR (Non- Af Amer) > 60, Random Glucose 102, Calcium 9.5, Total Bilirubin 0.2, AST 15 L D , ALT 19, Alkaline Phosphatase 28 L, Total Protein 7.3, Albumin 4.1, Globulin 3.2, Albumin/Globulin Ratio 1.3 11/13/17 10:40: WBC 7.9, RBC 4.79, Hgb 13.9 L, Hct 40.0 L, MCV 83.5, MCH 29.0, MCHC 34.8, RDW 12.4, Plt Count 254, MPV 9.6, Gran % 72.9 H, Lymph % (Auto) 18.7 L, [place] % (Auto) 7.7 H, Eos % (Auto) 0.3 L, Baso % (Auto) 0.4, Gran # 5.75, Lymph # (Auto) 1.5, [place] # (Auto) 0.6, Eos # (Auto) 0.0, Baso # (Auto) 0.03 - EKG Interpretation 11/13/17 10:20 NSR HR 80bpm, QTc 382ms (Willie Parson) FLOOR LABS 11/14/17 11/14/17 11/14/17 07:00 07:00 07:00 Fasting Glucose 99 Triglycerides 118 Cholesterol 175 LDL Cholesterol Direct 107 HDL Cholesterol 37 Free T4 1.06 Thyroxine (T4) 7.3 TSH 3rd Generation 1.63 - Smoking Cessation Smoking Cessation Initiated: No Reason for not providing: Patient deferred
--- NOTE | 2017-11-15 23:16 | PN ---
DATE: 11/15/2017 LOCATION: The patient was seen and examined in room 514, bed 1. SUBJECTIVE: The patient was seen ambulating on the floor. The patient's overnight nurse's notes were reviewed. Last night the patient had episode of anxiety for which the patient needed Ativan and patient states that he slept well after that, because of the disturbances in the hallway and light being on all night. OBJECTIVE: VITAL SIGNS: T-max 98.2; pulse 76, 56, 70; blood pressure 101/65, 118/81, 107/63; respirations 20; O2 sat is 99-100%. HEENT: Head examination normocephalic, atraumatic. HEENT examination shows pink conjunctivae. Anicteric sclerae. No oropharyngeal lesion. NECK: No neck rigidity. CHEST: Symmetrical. LUNG: Shows no rales, crackles or wheezing. CARDIOVASCULAR: S1, S2, regular rhythm. No appreciable or audible murmur, gallop or rub. ABDOMEN: Positive bowel sound. Soft abdomen. No costovertebral angle tenderness. No epigastric tenderness. No periumbilical tenderness. No right and left upper and lower quadrant tenderness. No costovertebral angle tenderness. GENITALIA: Male. RECTAL: Deferred. EXTREMITIES: Shows no pitting edema, no calf numbness, no Homans' sign. MUSCULOSKELETAL: Shows a body mass index of 27. NEUROLOGIC: The patient is alert, awake, oriented x3. Cranial nerves II through XII intact. Gait examination is independent. VASCULAR: Palpable pulses. Cranial nerves II through XII intact. Gait examination is independent. PSYCHIATRY: Evaluation from today was reviewed. LABORATORY DATA: The patient's CBC, chemistry, lipid profile, thyroid profile, vitamin D level, urinalysis, urine drug screen and RPR noted. Microbiology, none reports. IMAGING STUDIES: The patient's chest x-ray was reviewed. EKG was reviewed. The patient reports normal bowel movement since yesterday. Denies straining and denies constipation. IMPRESSION AND PLAN: 1. Severe exacerbation of acute anxiety and major depression with generalized anxiety disorder and panic disorder. 2. History of hypertension. 3. History of prior psychiatric inpatient treatment. 4. History of insomnia. 5. History of lumbar back pain. 6. Panic disorder. 7. Granulocytosis. 8. Hypercholesteremia with elevated LDL and decreased HDL. 9. Hypovitaminosis D. 10. History of constipation. 1. Acute exacerbation of anxiety and depression and insomnia. 2. History of chronic constipation. 3. History of hypertension. 4. History of hyperlipidemia. 5. Major depression. 6. General anxiety disorder. 7. Panic disorder. 8. Hypovitaminosis D. 9. Constipation. Plan at this time, the patient's hemoglobin A1c and PSA is pending. CURRENT CONSULTATION: Gastroenterology evaluation is pending. CURRENT MEDICATIONS: 1. Ambien 10 mg at bedtime. 2. Ativan 2 mg IM or p.o. every 6 hours p.r.n. 3. Colace 100 mg twice a day. 4. Drisdol 50,000 units weekly. 5. Lipitor 40 mg daily. 6. Fleet enema p.r.n. 7. Maalox and milk of magnesia p.r.n. 8. MiraLax 17 g twice a day. 9. Norvasc 5 mg daily. 10. Protonix 40 mg daily. 11. Seroquel 100 mg at bedtime and Seroquel 50 mg a.m. 12. Tylenol 650 every 6 hours p.r.n. 13. Xanax 1 mg three times a day. DIET: The patient is on altered GI hepatic diet. At present, the patient seems to be medically stable. We will review the hemoglobin A1c and PSA when available. The patient will be continued on the active psychiatric treatment as mentioned and therapeutics and MAR. If the patient stays medically stable and if the pending test results are normal, the patient needs to follow up with his medical physician upon discharge. The patient has been updated about his medical condition, diagnoses, test results were explained to the patient at length in layman's language. All questions concerned answered. Dictated and electronically signed, not read. Dyllan Delarosa MD MTDD
[2017-11-16] MEDS: Pantoprazole 40 mg EC Tab PO SCH (06:58)
[2017-11-16] MEDS: POLYETHYLENE GLYCOL 3350 17 GM/Dose PACKET PO SCH ×2 (09:07→17:47)
--- NOTE | 2017-11-16 14:46 | PN ---
DATE: 11/16/2017 SUBJECTIVE: The patient is seen in room 514 bed 1. The patient is also seen ambulating on the floor. The patient denies any chest pain. Denies any shortness of breath. Denies nausea, denies diarrhea. Denies constipation. The patient states that his bowel movements are now normal. He does not have to strain and the patient's stools are normal. There is no hard stool documented. The nurses' notes were reviewed. The patient was seen by the satellite dish technician. The patient slept well. OBJECTIVE: VITAL SIGNS: T-max 97.6, pulse 71 to 76, blood pressure 102/75, respirations 20. HEENT: The patient's head examination normocephalic, atraumatic. HEENT examination shows pink conjunctivae. Anicteric sclerae. No oropharyngeal lesion. No neck rigidity. CHEST: Examination, symmetrical. LUNGS: Examination shows no rales, crackles or wheezing. CARDIOVASCULAR: S1, S2. Regular rhythm. No audible murmur, gallop or rub. ABDOMEN: Soft. Positive bowel sounds. No guarding. No rigidity. No rebound tenderness. GENITALIA: Male. RECTAL: Examination deferred. EXTREMITIES: Show no pitting edema, no calf tenderness, no Homans' sign. MUSCULOSKELETAL: Examination shows a body mass index of 27. Cranial nerves II-XII intact. Gait examination is independent. VASCULAR: Examination, palpable pulses. PSYCHIATRIC: Examination as per this psychiatrist's notes. DIAGNOSTICS: New diagnostic shows hemoglobin A1c of 5.6. IMPRESSION AND PLAN: 1. Acute exacerbation of anxiety and depression. 2. Insomnia. 3. History of long-standing back pain problem. 4. Generalized anxiety disorder. 5. Panic disorder. 6. History of hypertension. 7. Granulocytosis. 8. Prediabetes with hemoglobin A1c of 5.6. 9. Hypovitaminosis D. 10. Hyperlipidemia. 1. Severe exacerbation of acute anxiety and major depression with generalized anxiety disorder and panic disorder. 2. History of hypertension. 3. History of prior psychiatric inpatient treatment. 4. History of insomnia. 5. History of lumbar back pain. 6. Panic disorder. 7. Granulocytosis. 8. Hypercholesteremia with elevated LDL and decreased HDL. 9. Hypovitaminosis D. 10. History of constipation. 1. Acute exacerbation of anxiety and depression and insomnia. 2. History of chronic constipation. 3. History of hypertension. 4. History of hyperlipidemia. 5. Major depression. 6. General anxiety disorder. 7. Panic disorder. 8. Hypovitaminosis D. 9. Constipation. PLAN: At this time, the patient is seen by Gastroenterology, recommendations awaited. CURRENT MEDICATIONS: 1. Ambien 10 mg at bedtime. 2. Ativan 2 mg p.o. or IM every 6 hours p.r.n. 3. Colace 100 mg twice a day. 4. Drisdol 50,000 weekly. 5. Fleet enema ordered by psychiatrist daily p.r.n. 6. Lipitor 40 mg daily. 7. Maalox and milk of magnesia p.r.n. 8. MiraLax 17 g twice a day. 9. Norvasc 5 mg daily. 10. Pepcid 20 mg daily p.r.n. 11. Protonix 40 mg daily. 12. Prozac 10 mg daily. 13. Seroquel 100 mg at bedtime and Seroquel 50 mg in the morning. 14. Tylenol 650 every 6 hours p.r.n. 15. Xanax 1 mg three times a day. At present, the patient is medically stable from my point of view. The patient's all diagnostic lab data reviewed and explained to the patient. The patient's most recent lab data also shows that the PSA is within normal limit of 0.7. The patient has been updated about his diagnostic test results, etc. The patient was advised. The patient's further management will be as per the inpatient psychiatric treatment. The patient is advised outpatient followup with the medical doctor and the satellite dish technician and Pain Management and Urology. Dictated and electronically signed, not read. Dyllan Delarosa MD MTDD
--- NOTE | 2017-11-16 17:07 | PCM.PYCHPN ---
Psychiatric Progress Note - Psychiatric Progress Note Patient seen today, length of contact: 30 minutes Patient Chief Complaint: "I was feeling overwhelmed" Problems Identified/Issues Discussed: Suicide/ homicide prevention, past psychiatric h/o, current psychiatric symptoms , medical problems, risk/benefits and alternatives of medications, medications compliance, coping strategies, substance abuse h/o, relapse prevention, importance of follow up with psychiatrist and therapist, discharge plan. Medical Problems: multiple medical issues including GERD, irritable bowel syndrome, obesity. Diagnostic Results: 11/13/17 10:40 11/13/17 10:40 Lab Results 11/16/17 07:00: Prostate Specific Ag 0.7 11/14/17 07:00: 25-OH Vitamin D Total 18.9 L 11/14/17 07:00: Thyroxine (T4) 7.3 11/14/17 07:00: Hemoglobin A1c 5.6 11/14/17 07:00: RPR Nonreactive 11/14/17 07:00: Free T4 1.06, TSH 3rd Generation 1.63 11/14/17 07:00: Fasting Glucose 99, Triglycerides 118, Cholesterol 175, LDL Cholesterol Direct 107, HDL Cholesterol 37 11/13/17 11:52: Urine Opiates Screen Negative, Urine Methadone Screen Negative, Ur Barbiturates Screen Negative, Ur Phencyclidine Scrn Negative, Ur Amphetamines Screen Negative, U Benzodiazepines Scrn Negative, U Oth Cocaine Metabols Negative, U Cannabinoids Screen Negative 11/13/17 11:52: Urine Color Yellow, Urine Appearance Clear, Urine pH 7.5, Ur Specific [place] 1.010, Urine Protein Negative, Urine Glucose (UA) Negative, Urine Ketones Negative, Urine Blood Negative, Urine Nitrate Negative, Urine Bilirubin Negative, Urine Urobilinogen 0.2, Ur Leukocyte Esterase Negative 11/13/17 10:40: Alcohol, Quantitative < 10 11/13/17 10:40: Salicylates < 1 L, Acetaminophen < 10.0 L 11/13/17 10:40: Sodium 138, Potassium 4.1, Chloride 103, Carbon Dioxide 23, Anion Gap 16, BUN 11, Creatinine 0.8, Est GFR ( Amer) > 60, Est GFR (Non- Af Amer) > 60, Random Glucose 102, Calcium 9.5, Total Bilirubin 0.2, AST 15 L D , ALT 19, Alkaline Phosphatase 28 L, Total Protein 7.3, Albumin 4.1, Globulin 3.2, Albumin/Globulin Ratio 1.3 11/13/17 10:40: WBC 7.9, RBC 4.79, Hgb 13.9 L, Hct 40.0 L, MCV 83.5, MCH 29.0, MCHC 34.8, RDW 12.4, Plt Count 254, MPV 9.6, Gran % 72.9 H, Lymph % (Auto) 18.7 L, [place] % (Auto) 7.7 H, Eos % (Auto) 0.3 L, Baso % (Auto) 0.4, Gran # 5.75, Lymph # (Auto) 1.5, [place] # (Auto) 0.6, Eos # (Auto) 0.0, Baso # (Auto) 0.03 Vital Signs Temp Pulse Resp BP Pulse Ox 11/16/17 09:06 71 102/75 11/15/17 16:00 71 102/75 11/15/17 07:12 97.6 F 76 20 101/65 11/14/17 16:00 56 L 118/81 11/14/17 08:26 107/63 11/14/17 07:16 98.2 F 70 20 107/63 11/13/17 13:49 82 18 152/96 H 100 11/13/17 13:30 82 18 152/96 H 100 11/13/17 09:50 98.4 F 86 17 140/95 H 99 DSM 5 Symptoms Update: Shortly patient is a 52 y/o single white male with history of depression and anxiety, one prior psychiatric admission at [facility] [place] in 01/2017, no history of SA, in outpatient treatment with Dr. Gómez Diggs, compliant with prescribed Xanax and Ambien CR who presented to ER complaining of anxiety, depression, racing thoughts and insomnia. patient was seen today at the treatment team meeting, patient presented with fair personal hygiene, good ADLs. Patient has circumstantial and tangential thought process, it takes forever for the patient to answer simple questions. Patient reported that he feels little bit better being on Seroquel, patient reported that sleep improved, and the same time patient was feeling "overwhelmed ", patient was also making comments like "for example if I'm buying a house and somebody is telling me that roof is not good, floor is not good and sealing is leaking, I want to leave that house, this is the way I feel about my physical health and my body". patient was feeling depressed and hopeless, patient reported that his expensive fish was found and "it set me off", pt reported "I had so many deaths for the past two years". Thought process is generally coherent however patient can be overinclusive and ramble at times. Affect is constricted. Patient denies any perceptual disturbance and he is not suicidal or homicidal. Delusions were not elicited. Patient has been groomed, visible and communicative on the unit. There were no behavioral issues over the weekend. Patient reported no side effects from the medications, and none were elicited. Aims 0, no EPS. Diagnostic Results: Major Depression, Severe DEUCE Panic Disorder Medication Change: Yes (Seroquel increased) Medical Record Reviewed: Yes Consults ordered or reviewed: patient was seen by Dr. Taylor Mental Status Examination - Cognitive Function Orientation: Person, Place, Situation Attention: WNL Concentration: WNL Association: Loose Fund of Knowledge: WNL - Mood Mood: Depressed, Anxious - Affect Affect: Constricted - Formal Thought Process Formal Thought Process: No Impairment - Suicidal Ideation Suicidal Ideation: No - Homicidal Ideation Homicidal Ideation: No Goal/Treatment Plan - Goal/Treatment Plan Need for Continued Stay: Remain at risks for inpatient hospitalization, Severe depression anxiety, Discharge may exacerbated symptoms, Severe functional impairment Progress Toward Problem(s) and Goals/Treatment Plan: Milieu/structure/supportive therapy Medical consult appreciated, see medical team note for more detailed info SW consultation for discharge plan and social issues Med management Seroquel will be increased Abilify will be continued Xanax 3 times a day Family involvement Follow up on labs Will monitor closely Pt was educated about risk/benefits and alternatives of medications, coping strategies (safety plan, suicide prevention), relapse prevention, importance of follow up with psychiatrist and therapist, stay away from drugs/alcohol/smoking Estimated Date of D/C: 11/20/17
[2017-11-17] MEDS: Pantoprazole 40 mg EC Tab PO SCH (07:26)
[2017-11-17] MEDS: POLYETHYLENE GLYCOL 3350 17 GM/Dose PACKET PO SCH ×2 (09:01→17:22)
--- NOTE | 2017-11-17 09:26 | CON ---
DATE: 11/16/2017 HISTORY OF PRESENT ILLNESS: I saw Mr. Plaza this morning. 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 pylori and especially severe anxiety syndrome. The patient indicated that he was walking around in daze at home, felt he would feel better in the hospital. Recent issues regarding the patient's GI treatment and workup include a negative gastric emptying study for gastroparesis and recurrent endoscopy indicative of severe acid reflux. Patient is currently on proton pump inhibitor at home and acid reflux seems to be under better control. He does exhibit periodic dyspeptic symptoms, which was exacerbated by a mildly severe anxiety disorder. I reviewed the issue of the anxiety medications with the patient on multiple occasions in the office and he was started on BuSpar most recently with fair results. It was discussed that if it did not work to have the medications strength either escalated or changed to a higher quality medication as per the psychiatrist. PHYSICAL EXAMINATION: VITAL SIGNS: I reviewed this patient's vital signs. HEENT: Noncontributory. LUNGS: Clear to auscultation. HEART: Regular rhythm. ABDOMEN: Soft. No tenderness elicited. LABORATORY DATA: I reviewed this patient's laboratory data. ASSESSMENT: This is a 52-year-old white male with a history of severe acid reflux and dyspepsia admitted for issues related to an anxiety syndrome. Patient is currently being treated by the Psychiatry service at [facility]. As far his gastrointestinal issues, the patient should practice antireflux precautions, use a daily PPI in the morning before breakfast and also suggest on a p.r.n. basis several days a week Pepcid 20 mg, dosed one hour or so after his dinner. Patient will be following up with me in the office at a later date. Juni Loera DO, PhD MTDFelipe
--- NOTE | 2017-11-17 15:19 | PCM.PYCHPN ---
Psychiatric Progress Note - Psychiatric Progress Note Patient seen today, length of contact: 30 minutes Patient Chief Complaint: "I feel better" Problems Identified/Issues Discussed: Suicide/ homicide prevention, past psychiatric h/o, current psychiatric symptoms , medical problems, risk/benefits and alternatives of medications, medications compliance, coping strategies, substance abuse h/o, relapse prevention, importance of follow up with psychiatrist and therapist, discharge plan. Medical Problems: multiple medical issues including GERD, irritable bowel syndrome, obesity. Diagnostic Results: 11/13/17 10:40 11/13/17 10:40 Lab Results 11/16/17 07:00: Prostate Specific Ag 0.7 11/14/17 07:00: 25-OH Vitamin D Total 18.9 L 11/14/17 07:00: Thyroxine (T4) 7.3 11/14/17 07:00: Hemoglobin A1c 5.6 11/14/17 07:00: RPR Nonreactive 11/14/17 07:00: Free T4 1.06, TSH 3rd Generation 1.63 11/14/17 07:00: Fasting Glucose 99, Triglycerides 118, Cholesterol 175, LDL Cholesterol Direct 107, HDL Cholesterol 37 11/13/17 11:52: Urine Opiates Screen Negative, Urine Methadone Screen Negative, Ur Barbiturates Screen Negative, Ur Phencyclidine Scrn Negative, Ur Amphetamines Screen Negative, U Benzodiazepines Scrn Negative, U Oth Cocaine Metabols Negative, U Cannabinoids Screen Negative 11/13/17 11:52: Urine Color Yellow, Urine Appearance Clear, Urine pH 7.5, Ur Specific [place] 1.010, Urine Protein Negative, Urine Glucose (UA) Negative, Urine Ketones Negative, Urine Blood Negative, Urine Nitrate Negative, Urine Bilirubin Negative, Urine Urobilinogen 0.2, Ur Leukocyte Esterase Negative 11/13/17 10:40: Alcohol, Quantitative < 10 11/13/17 10:40: Salicylates < 1 L, Acetaminophen < 10.0 L 11/13/17 10:40: Sodium 138, Potassium 4.1, Chloride 103, Carbon Dioxide 23, Anion Gap 16, BUN 11, Creatinine 0.8, Est GFR ( Amer) > 60, Est GFR (Non- Af Amer) > 60, Random Glucose 102, Calcium 9.5, Total Bilirubin 0.2, AST 15 L D , ALT 19, Alkaline Phosphatase 28 L, Total Protein 7.3, Albumin 4.1, Globulin 3.2, Albumin/Globulin Ratio 1.3 11/13/17 10:40: WBC 7.9, RBC 4.79, Hgb 13.9 L, Hct 40.0 L, MCV 83.5, MCH 29.0, MCHC 34.8, RDW 12.4, Plt Count 254, MPV 9.6, Gran % 72.9 H, Lymph % (Auto) 18.7 L, [place] % (Auto) 7.7 H, Eos % (Auto) 0.3 L, Baso % (Auto) 0.4, Gran # 5.75, Lymph # (Auto) 1.5, [place] # (Auto) 0.6, Eos # (Auto) 0.0, Baso # (Auto) 0.03 Vital Signs Temp Pulse Resp BP Pulse Ox 11/16/17 09:06 71 102/75 11/15/17 16:00 71 102/75 11/15/17 07:12 97.6 F 76 20 101/65 11/14/17 16:00 56 L 118/81 11/14/17 08:26 107/63 11/14/17 07:16 98.2 F 70 20 107/63 11/13/17 13:49 82 18 152/96 H 100 11/13/17 13:30 82 18 152/96 H 100 11/13/17 09:50 98.4 F 86 17 140/95 H 99 DSM 5 Symptoms Update: Shortly patient is a 52 y/o single white male with history of depression and anxiety, one prior psychiatric admission at [facility] in 01/2017, no history of SA, in outpatient treatment with Dr. Gómez Diggs, compliant with prescribed Xanax and Ambien CR who presented to ER complaining of anxiety, depression, racing thoughts and insomnia. patient was seen today at the treatment team meeting, patient presented with fair personal hygiene, good ADLs. Patient has circumstantial and tangential thought process, it takes forever for the patient to answer simple questions. at the same time pt shows some improvements with his symptoms, pt reported his sleep "Improved, I slept well", pt said that he was feeling "groggy on seroquel at the morning", as per staff pt refused to take it today. pt said that his mood is "little better, I want to go back to work, I want to feel good about myself...". Thought process is generally coherent however patient can be overinclusive and ramble at times. Patient denies any perceptual disturbance and he is not suicidal or homicidal. Delusions were not elicited. as per RN pt is visible and communicative on the unit. There were no behavioral issues over the weekend. Patient reported no side effects from the medications, and none were elicited. Aims 0, no EPS. Diagnostic Results: Major Depression, Severe DEUCE Panic Disorder Medication Change: Yes (Seroquel morning dose was discontinued, Prozac was increased) Medical Record Reviewed: Yes Mental Status Examination - Cognitive Function Orientation: Person, Place, Situation Attention: WNL Concentration: WNL Association: Loose Fund of Knowledge: WNL - Mood Mood: Depressed, Anxious - Affect Affect: Constricted - Formal Thought Process Formal Thought Process: No Impairment - Suicidal Ideation Suicidal Ideation: No - Homicidal Ideation Homicidal Ideation: No Goal/Treatment Plan - Goal/Treatment Plan Need for Continued Stay: Remain at risks for inpatient hospitalization, Severe depression anxiety, Discharge may exacerbated symptoms, Severe functional impairment Progress Toward Problem(s) and Goals/Treatment Plan: Milieu/structure/supportive therapy Medical consult appreciated, see medical team note for more detailed info SW consultation for discharge plan and social issues Med management Seroquel will be decreased prozac increased correction to my previous note not Abilify, but Ambien will be continued Xanax 3 times a day Family involvement Follow up on labs Will monitor closely Pt was educated about risk/benefits and alternatives of medications, coping strategies (safety plan, suicide prevention), relapse prevention, importance of follow up with psychiatrist and therapist, stay away from drugs/alcohol/smoking Estimated Date of D/C: 11/20/17
--- NOTE | 2017-11-18 03:49 | PN ---
DATE: 11/17/2017 SUBJECTIVE: Patient is seen today. He is eating, comfortable. No distress. He looks comfortable, slept very well. He has no new complaints. Patient walks around. No distress. PHYSICAL EXAMINATION: GENERAL: Patient is stable. VITAL SIGNS: His temperature 97.6, heart rate 60, blood pressure 101/62, respirations 20. HEAD AND NECK: Normal. No JVD. No thyromegaly. CHEST: Clear. Good air entry. CARDIAC: First sound and second sound are normal. ABDOMEN: Soft, nontender. EXTREMITIES: No edema. NEUROLOGIC: Normal. LABORATORY DATA: No change. Urine is clean. normal. There is no new labs. Old labs have been discussed with the patient. MEDICATIONS: No change, as in initial consultation sheet. No change from previous one. IMPRESSION AND PLAN: 1. Hypertension. Patient seems running low blood pressure. We will decrease the Norvasc to 2.5 mg once a day. Monitor his blood pressure. 2. Hypercholesterolemia. Continue Lipitor 40 mg at bedtime. Lipid profile is stable, in good range. 3. Vitamin D deficiency, insomnia. Continue Ambien. Continue vitamin D. 4. For constipation, patient seems doing okay with current medication. We will monitor his condition. 5. Acid reflux symptoms. Continue Pepcid and Protonix. 6. Anxiety, depression. Seems that the patient's responds to atypical antipsychotic therapy and antidepressants which include Prozac and Seroquel plus Xanax. He seems doing very well. We will continue current medications. Continue Ambien, Ativan p.r.n. Follow up Clinically. Discussed with Dr. Shaw about the patient's condition. Seems doing better psychologically. Keaton Muse MD
[2017-11-18] MEDS: POLYETHYLENE GLYCOL 3350 17 GM/Dose PACKET PO SCH ×2 (08:25→17:07)
[2017-11-18] MEDS: Pantoprazole 40 mg EC Tab PO SCH (08:26)
--- NOTE | 2017-11-18 10:21 | CON ---
DATE: 11/16/2017 MEDICAL CONSULT REASON FOR CONSULT: Medical management. HISTORY OF PRESENT ILLNESS: The patient's main complaint is anxiety, very worried, difficult sleeping, very anxious about work and is able to continue working in that circumstances, he has more stress at work than really anything else. He does not have any chest pain, any shortness of breath. He does have some more abdominal discomfort. No fever, no nausea, no vomiting, no headache. No other complaints. PAST MEDICAL HISTORY: As follows: He does have a history of gastritis, acid reflux symptoms. He does have history of constipation and had a colonoscopy for that and negative; does have history of hypertension; history of anxiety, insomnia, depression, seen by psychiatrist; history of admissions to Psych floor, this admission is the second time; chronic back pain; chronic disk disease. The patient also had history of severe acid reflux, history of reflux esophagitis, history of EGD, colonoscopy and colonic diverticulosis and lumbar spondylosis with multiple degenerative joint disease in the lumbosacral area. FAMILY HISTORY: Noncontributory. ALLERGIES: THE PATIENT IS ALLERGIC TO ASPIRIN AND PENICILLIN. REVIEW OF SYSTEMS: The patient does have GI symptoms including dyspepsia, which is improved. He does have also suprapubic discomfort. He will go to the bathroom once or twice at night; otherwise, no burning urination. He does have difficulty falling asleep at night, for which he has been using medication for it. He is also having too much of anxiety and thinking about his work and he is able to continue work and a lot of anxiety about his boss at work. MEDICATIONS: The patient is currently taking the following medications: Ambien 10 mg at bedtime, Ativan 2 mg every 6 hours p.o. and 2 mg IM every 6 hours p.r.n., Colace 100 mg b.i.d., vitamin D 50,000 once a day, Fleet enema p.r.n., Lipitor 40 mg at bedtime,Maalox 30 mg p.r.n., milk of magnesia 30mL p.o. daily p.r.n., MiraLax 17 g b.i.d., Norvasc 5 mg p.o. daily, Pepcid 20 mg p.o. daily, Protonix 40 mg once a day, Prozac 20 mg p.o. daily, Seroquel 100 mg p.o. at bedtime, Tylenol 650 every 6 hours and Xanax 1 mg p.o. t.i.d. PHYSICAL EXAMINATION: GENERAL: Temperature 97.6, heart rate 71, blood pressure 102/75, respirations 20, saturation is not available. HEAD AND NECK: Normal. No JVD. No thyromegaly. CHEST: Clear bilaterally. CARDIAC: First and second sound normal. ABDOMEN: Soft and nontender. EXTREMITIES: No edema. NEUROLOGIC: Normal. LABORATORY DATA: White count 7.9, hemoglobin 16.9, hematocrit 40, platelets 254. Chemistry shows; sodium 138, potassium 4.1, chloride 103, bicarb 23, BUN 11, creatinine 0.8. AST and ALT and alkaline phosphatase is within normal range. The patient had lipid profile, which was normal and TSH is normal. Vitamin D is low. Hemoglobin A1c 5.6, which is normal. TSH is 0.7. The patient had urine toxic screen, which was negative for any drugs. Serology, RPR is negative. His urine shows negative . EKG shows sinus rhythm. Heart rate is 80. Normal EKG with normal sinus rhythm. The patient also had a chest x-ray, which is read as no active pulmonary disease. IMPRESSION AND PLAN: This is a 52-year-old male with history of multiple medical problems. He was admitted to Psychiatry floor because of severe anxiety and more obsessive about his work and feeling uncomfortable at work and people watching him for any minor things he does; this cluster of symptoms make him so anxious, unable to sleep, and uncomfortable psychologically with history of depression, anxiety and insomnia. The patient was admitted to the Psychiatric floor for evaluation and treatment. We will continue current therapy as per Dr. Shaw, Psychiatry; otherwise, regarding medical treatment. 1. We will continue his current medication for his underlying hypertension. Continue Norvasc 5 mg. We may decrease that to 2.5 mg if his blood pressure continue to be on the 100 side to avoid any lightheadedness. The patient does not complain. 2. Hypercholesterolemia. Continue Lipitor. 3. Acid reflux symptoms. Continue Pepcid and Protonix. We will follow up clinically. The patient seems working around. He has no new complaints. Keaton Muse MD [facility] # [id number]
--- NOTE | 2017-11-18 15:03 | PCM.PYCHPN ---
Psychiatric Progress Note - Psychiatric Progress Note Patient seen today, length of contact: 30 minutes Patient Chief Complaint: "I feel better" Problems Identified/Issues Discussed: Suicide/ homicide prevention, past psychiatric h/o, current psychiatric symptoms , medical problems, risk/benefits and alternatives of medications, medications compliance, coping strategies, substance abuse h/o, relapse prevention, importance of follow up with psychiatrist and therapist, discharge plan. Medical Problems: multiple medical issues including GERD, irritable bowel syndrome, obesity. Diagnostic Results: 11/13/17 10:40 11/13/17 10:40 Lab Results 11/16/17 07:00: Prostate Specific Ag 0.7 11/14/17 07:00: 25-OH Vitamin D Total 18.9 L 11/14/17 07:00: Thyroxine (T4) 7.3 11/14/17 07:00: Hemoglobin A1c 5.6 11/14/17 07:00: RPR Nonreactive 11/14/17 07:00: Free T4 1.06, TSH 3rd Generation 1.63 11/14/17 07:00: Fasting Glucose 99, Triglycerides 118, Cholesterol 175, LDL Cholesterol Direct 107, HDL Cholesterol 37 11/13/17 11:52: Urine Opiates Screen Negative, Urine Methadone Screen Negative, Ur Barbiturates Screen Negative, Ur Phencyclidine Scrn Negative, Ur Amphetamines Screen Negative, U Benzodiazepines Scrn Negative, U Oth Cocaine Metabols Negative, U Cannabinoids Screen Negative 11/13/17 11:52: Urine Color Yellow, Urine Appearance Clear, Urine pH 7.5, Ur Specific [place] 1.010, Urine Protein Negative, Urine Glucose (UA) Negative, Urine Ketones Negative, Urine Blood Negative, Urine Nitrate Negative, Urine Bilirubin Negative, Urine Urobilinogen 0.2, Ur Leukocyte Esterase Negative 11/13/17 10:40: Alcohol, Quantitative < 10 11/13/17 10:40: Salicylates < 1 L, Acetaminophen < 10.0 L 11/13/17 10:40: Sodium 138, Potassium 4.1, Chloride 103, Carbon Dioxide 23, Anion Gap 16, BUN 11, Creatinine 0.8, Est GFR ( Amer) > 60, Est GFR (Non- Af Amer) > 60, Random Glucose 102, Calcium 9.5, Total Bilirubin 0.2, AST 15 L D , ALT 19, Alkaline Phosphatase 28 L, Total Protein 7.3, Albumin 4.1, Globulin 3.2, Albumin/Globulin Ratio 1.3 11/13/17 10:40: WBC 7.9, RBC 4.79, Hgb 13.9 L, Hct 40.0 L, MCV 83.5, MCH 29.0, MCHC 34.8, RDW 12.4, Plt Count 254, MPV 9.6, Gran % 72.9 H, Lymph % (Auto) 18.7 L, [place] % (Auto) 7.7 H, Eos % (Auto) 0.3 L, Baso % (Auto) 0.4, Gran # 5.75, Lymph # (Auto) 1.5, [place] # (Auto) 0.6, Eos # (Auto) 0.0, Baso # (Auto) 0.03 Vital Signs Temp Pulse Resp BP Pulse Ox 11/16/17 09:06 71 102/75 11/15/17 16:00 71 102/75 11/15/17 07:12 97.6 F 76 20 101/65 11/14/17 16:00 56 L 118/81 11/14/17 08:26 107/63 11/14/17 07:16 98.2 F 70 20 107/63 11/13/17 13:49 82 18 152/96 H 100 11/13/17 13:30 82 18 152/96 H 100 11/13/17 09:50 98.4 F 86 17 140/95 H 99 DSM 5 Symptoms Update: Shortly patient is a 52 y/o single white male with history of depression and anxiety, one prior psychiatric admission at [facility] in 01/2017, no history of SA, in outpatient treatment with Dr. Gómez Diggs, compliant with prescribed Xanax and Ambien CR who presented to ER complaining of anxiety, depression, racing thoughts and insomnia. patient was seen today at the [facility], patient presented with fair personal hygiene, good ADLs. 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 pt reported that at this time he tolerates meds well. pt was educated about importance to take meds as prescribed, having routine meds taking and sleep scheduled. Thought process is generally coherent however patient can be overinclusive and ramble at times. Patient denies any perceptual disturbance and he is not suicidal or homicidal. Delusions were not elicited. as per RN pt is visible and communicative on the unit. Patient reported no side effects from the medications, and none were elicited. Aims 0, no EPS. discussed with . tentative d/c tomorrow. Diagnostic Results: Major Depression, Severe DEUCE Panic Disorder Medication Change: Yes (Seroquel morning dose was discontinued, Prozac was increased) Medical Record Reviewed: Yes Mental Status Examination - Cognitive Function Orientation: Person, Place, Situation Attention: WNL Concentration: WNL Association: Loose Fund of Knowledge: WNL - Mood Mood: Depressed ("i feel better) - Affect Affect: Constricted - Formal Thought Process Formal Thought Process: No Impairment - Suicidal Ideation Suicidal Ideation: No - Homicidal Ideation Homicidal Ideation: No Goal/Treatment Plan - Goal/Treatment Plan Need for Continued Stay: Remain at risks for inpatient hospitalization, Severe depression anxiety, Discharge may exacerbated symptoms, Severe functional impairment Progress Toward Problem(s) and Goals/Treatment Plan: Milieu/structure/supportive therapy Medical consult appreciated, see medical team note for more detailed info SW consultation for discharge plan and social issues Med management Seroquel 100mg po hs prozac increased 20mg po daily Ambien will be continued Xanax 3 times a day Family involvement Follow up on labs Will monitor closely Pt was educated about risk/benefits and alternatives of medications, coping strategies (safety plan, suicide prevention), relapse prevention, importance of follow up with psychiatrist and therapist, stay away from drugs/alcohol/smoking Estimated Date of D/C: 11/19/17
[2017-11-19 06:55] VITALS: BP 105/65; PULSE 52; TEMP 98
[2017-11-19] MEDS: POLYETHYLENE GLYCOL 3350 17 GM/Dose PACKET PO SCH (09:02)
[2017-11-19] MEDS: Pantoprazole 40 mg EC Tab PO SCH (09:04)
--- NOTE | 2017-11-19 15:26 | PN ---
DATE: 11/18/2017 SUBJECTIVE: The patient seems comfortable, in no distress, slept very well. His anxiety seems much better and no other complaints. He moves his bowels regularly. No nausea, no vomiting, no abdominal pain. PHYSICAL EXAMINATION: VITAL SIGNS: Temperature 97.9, heart rate 59, blood pressure 104/70, respirations 20, saturation is not reported. HEAD AND NECK: Normal. No JVD, no thyromegaly. CHEST: Clear, good air entry. CARDIAC: First sound and second sound normal. ABDOMEN: Soft, nontender. EXTREMITIES: No edema. NEUROLOGIC: Normal. The patient otherwise is stable. IMPRESSION: 1. Acute generalized anxiety, much better. 2. Depression, insomnia, controlled with current medications. He is doing very well with Prozac, Seroquel plus Xanax, he is doing well. We will continue current medications as Dr. Shaw. He seems comfortable. He wants to go for work after a week or two. On the current medications, we will see how he do. 3. Hypertension, stable. We will decrease Norvasc to 2.5 mg daily, blood pressure is still very good, may be we will discontinue Norvasc completely. Could be part blood pressure is in the psychological status of being very anxious, agitated, and it seems better with the current psychiatric medications. We will await and probably he can get off Norvasc. We will monitor closely. CURRENT MEDICATIONS: Ambien 10 mg daily, Ativan 2 mg p.o. every 6 hours p.r.n. and 2 mg IM every 6 hours p.r.n., Colace 100 b.i.d., vitamin D once a week, p.r.n., Lipitor 40 at bedtime, Maalox 30 mg, Milk of Magnesia p.r.n. p.o. daily, MiraLax b.i.d. p.r.n., Norvasc 2.5 mg once a day, Pepcid 20 daily, Protonix 40 daily, Prozac 20 mg p.o. daily, Seroquel 100 p.o. at bedtime, Tylenol p.r.n., and Xanax 1 mg p.o. t.i.d. Continue current therapy. Keaton Muse MD [facility] # [id number]
== END 2017-11-19 11:17 | disposition home or self-care (01) | DRG 885 ==
LOC: ED 09:29 → ERH 12:22 → PSYC 13:52
PROVIDERS: ADMIT Psychiatry & Neurology Psychiatry; ATTEND Psychiatry & Neurology Psychiatry
DX: F32.2 Major depressive disorder, single episode, severe without psychotic features (principal); F41.1 Generalized anxiety disorder; G47.00 Insomnia, unspecified; I10 Essential (primary) hypertension; E03.9 Hypothyroidism, unspecified; E55.9 Vitamin D deficiency, unspecified; E78.00 Pure hypercholesterolemia, unspecified; E78.5 Hyperlipidemia, unspecified; F17.290 Nicotine dependence, other tobacco product, uncomplicated; I34.1 Nonrheumatic mitral (valve) prolapse; J45.909 Unspecified asthma, uncomplicated; K21.9 Gastro-esophageal reflux disease without esophagitis; R73.03 Prediabetes; K58.9 Irritable bowel syndrome, unspecified; K31.84 Gastroparesis; F41.0 Panic disorder [episodic paroxysmal anxiety]; K59.09 Other constipation; K57.30 Diverticulosis of large intestine without perforation or abscess without bleeding; K21.0 Gastro-esophageal reflux disease with esophagitis; M47.817 Spondylosis without myelopathy or radiculopathy, lumbosacral region; E66.9 Obesity, unspecified; Z68.26 Body mass index [BMI] 26.0-26.9, adult; Z88.6 Allergy status to analgesic agent; Z88.0 Allergy status to penicillin

== ENCOUNTER 2017-11-27 10:55 | Observation (INO) | payer BC ==
--- NOTE | 2017-11-27 11:13 | ED PDOC ---
Arrival/HPI - General Chief Complaint: Syncope Time Seen by Provider: 11/27/17 11:02 Historian: Patient, EMS - History of Present Illness Narrative History of Present Illness (Text): 11/27/17 11:00 52 year old male, whose PMH includes hypertension, mitral valve prolapse, asthma , hypothyroidism, and GERD, who presents to the emergency department via EMS s/ p near syncopal episode as per EMS. Patient is currently complaining of chest tightness, dizziness, and states he has high blood pressure since one day ago. No other complaints were made. PMD: Dr. Muse Time/Duration: Prior to Arrival Symptom Onset: Sudden Symptom Course: Unchanged Past Medical History - Provider Review Nursing Documentation Reviewed: Yes - Past History Past History: No Previous - Infectious Disease Hx of Infectious Diseases: None - Tetanus Immunization Tetanus Immunization: Unknown - Cardiac Hx Cardiac Disorders: Yes Hx Cardiac Arrhythmia: Yes Hx Hypertension: Yes Hx Mitral Valve Prolapse: Yes - Pulmonary Hx Respiratory Disorders: Yes Hx Asthma: Yes - Neurological Hx Neurological Disorder: Yes Hx Dizziness: Yes - HEENT Hx HEENT Disorder: Yes - Renal Hx Renal Disorder: No - Endocrine/Metabolic Hx Endocrine Disorders: Yes Hx Hypothyroidism: Yes - Hematological/Oncological Hx Blood Disorders: No - Integumentary Hx Dermatological Disorder: No - Musculoskeletal/Rheumatological Hx Musculoskeletal Disorders: Yes Hx Falls: Yes Hx Fractures: Yes (left rib) - Gastrointestinal Hx Gastrointestinal Disorders: Yes Hx Gastritis: Yes Hx Gastroesophageal Reflux: Yes Other/Comment: H. Pylori, IBS, biliary colic, GASTRO PARESIS - Genitourinary/Gynecological Hx Genitourinary Disorders: No - Psychiatric Hx Anxiety: Yes Hx Substance Use: No - Past Surgical History Past Surgical History: No Previous - Surgical History Hx Cardiac Catheterization: Yes - Anesthesia Hx Anesthesia: Yes Hx Anesthesia Reactions: No Hx Malignant Hyperthermia: No - Suicidal Assessment Feels Threatened In Home Enviroment: No Family/Social History - Physician Review Nursing Documentation Reviewed: Yes Family/Social History: Unknown Family HX Smoking Status: Former Smoker Hx Alcohol Use: Yes (OCCASIONAL.LAST DRANK AUGUST 2015 BEER) Hx Substance Use: No Hx Substance Use Treatment: No Allergies/Home Meds Allergies/Adverse Reactions: Allergies aspirin Allergy (Verified 11/27/17 11:03) stomach inflammation stomach inflammation Penicillins Allergy (Verified 11/27/17 11:03) ANAPHYLAXIS Review of Systems - Review of Systems Constitutional: absent: Fevers Respiratory: absent: SOB, Cough Cardiovascular: Chest Pain (chest tightness), Syncope (near syncope ) Gastrointestinal: absent: Abdominal Pain, Diarrhea, Nausea, Vomiting Genitourinary Male: absent: Dysuria Musculoskeletal: absent: Back Pain Skin: absent: Rash Neurological: Dizziness Endocrine: absent: Diaphoresis Physical Exam Vital Signs Temp Pulse Resp BP Pulse Ox 11/27/17 10:56 98.3 F 70 18 131/83 100 Temperature: Afebrile Blood Pressure: Normal Pulse: Regular Respiratory Rate: Normal Appearance: Positive for: Ill-Appearing Pain Distress: Mild Mental Status: Positive for: Confused, other (weak; slow answering questions). No: Alert and Oriented X 3 (AAOx2 (knows name and place)) - Systems Exam Head: Present: Atraumatic, Normocephalic Pupils: Present: PERRL (3mm) Extroacular Muscles: Present: EOMI Conjunctiva: Present: Normal Mouth: Present: Moist Mucous Membranes Pharnyx: Present: Normal Respiratory/Chest: Present: Clear to Auscultation, Good Air Exchange. No: Respiratory Distress, Accessory Muscle Use, Wheezes, Decreased Breath Sounds, Rales, Retracting, Rhonchi Cardiovascular: Present: Regular Rate and Rhythm, Normal S1, S2. No: Murmurs Abdomen: Present: Normal Bowel Sounds. No: Tenderness, Distention, Peritoneal Signs, Rebound, Guarding Upper Extremity: Present: Normal Inspection, Normal ROM, NORMAL PULSES, Neurovascularly Intact, Capillary Refill < 2s. No: Cyanosis, Edema, Tenderness , Swelling, Erythema, Deformity Lower Extremity: Present: Normal Inspection, NORMAL PULSES, Normal ROM, Neurovascularly Intact, Capillary Refill < 2 s. No: Edema, Cyanosis, Tenderness , Swelling, Erythema, Deformity Neurological: Present: GCS=15, CN II-XII Intact, Speech Normal, Motor Func Grossly Intact, Normal Sensory Function Skin: Present: Warm, Dry, Normal Color. No: Rashes Psychiatric: Present: Alert, Normal Insight, Normal Concentration. 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 fatigue vs. chest pain r/o ACS Plan: -- CT head -- EKG -- Chest X-ray -- Labs -- Urinalysis -- Reassess and disposition Progress Notes: EKG: Ordered, reviewed, and independently interpreted the EKG. Rate : 62 BPM Rhythm : NSR Interpretation : No ST-segment elevations or depressions, no T-wave inversions, normal intervals. Comparison : No previous EKG for comparison. 11/27/17 12:00 Chest X-ray: Creator : Kenny Kumar MD COMPARISON: 11/13/2017 FINDINGS: LUNGS: No active pulmonary disease. PLEURA: No significant pleural effusion identified, no pneumothorax apparent. CARDIOVASCULAR: Normal. OSSEOUS STRUCTURES: No significant abnormalities. VISUALIZED UPPER ABDOMEN: Normal. OTHER FINDINGS: None. IMPRESSION: No active disease. 11/27/17 12:15 CT head: Creator : Kenny Kumar MD COMPARISON: 02/08/2016 FINDINGS: HEMORRHAGE: No intracranial hemorrhage. BRAIN: No mass effect or edema. No atrophy or chronic microvascular ischemic changes. VENTRICLES: Unremarkable. No hydrocephalus. CALVARIUM: Unremarkable. PARANASAL SINUSES: Unremarkable as visualized. No significant inflammatory changes. MASTOID AIR CELLS: Unremarkable as visualized. No inflammatory changes. OTHER FINDINGS: None. IMPRESSION: Normal CT of the Head. No intracranial mass, hemorrhage or evidence of acute infarct. 11/27/17 13:03 Patient is now more alert awake and oriented x 3. Neuro: CN2-12. No slurred speech. 5/5 MS, sensation intact and equal. Good finger to nose. He states that he doesn't remember everything that occurred. He was walking into his apartment building. He wasn't feeling felt, he felt weak and nauseous. Then he asked his neighbor for help and that's the last he remembers. Right now he feels weak and is having nausea. He gets intermittent chest tightness and left arm pain. CXR nl. EKG nl. CT head normal. Patient states he can't take Aspirin because it's really bad for his stomach. Denies any drugs or alcohol use. 11/27/17 13:[address] Muse who agrees to telemetry observation with consults for Dr. Christopher Song, Neurology and Dr. Carbajal/[facility] Cardiology. - Lab Interpretations Lab Results: 11/27/17 11:04 11/27/17 11:04 Lab Results 11/27/17 11:40: Urine Opiates Screen Negative, Urine Methadone Screen Negative, Ur Barbiturates Screen Negative, Ur Phencyclidine Scrn Negative, Ur Amphetamines Screen Negative, U Benzodiazepines Scrn Positive H, U Oth Cocaine Metabols Negative, U Cannabinoids Screen Negative 11/27/17 11:40: Urine Color Yellow, Urine Appearance Clear, Urine pH 8.0, Ur Specific [place] 1.010, Urine Protein Negative, Urine Glucose (UA) Negative, Urine Ketones Negative, Urine Blood Negative, Urine Nitrate Negative, Urine Bilirubin Negative, Urine Urobilinogen 0.2, Ur Leukocyte Esterase Negative 11/27/17 11:04: Alcohol, Quantitative < 10 11/27/17 11:04: Salicylates < 1 L, Acetaminophen < 10.0 L 11/27/17 11:04: Sodium 138, Potassium 3.9, Chloride 98, Carbon Dioxide 24, Anion Gap 20, BUN 13, Creatinine 0.9, Est GFR ( Amer) > 60, Est GFR (Non- Af Amer) > 60, Random Glucose 112 H, Calcium 10.2, Magnesium 2.1, Total Bilirubin 0.4, AST 26, ALT 27, Alkaline Phosphatase 28 L, Lactate Dehydrogenase 329 L, Total Creatine Kinase 43, Troponin I < 0.01, Total Protein 7.9, Albumin 4.6, Globulin 3.3, Albumin/Globulin Ratio 1.4 11/27/17 11:04: PT 12.2, INR 1.06, APTT 29.5 11/27/17 11:04: WBC 8.9, RBC 5.06, Hgb 14.9, Hct 41.8 L, MCV 82.6, MCH 29.4, MCHC 35.6, RDW 12.3, Plt Count 260, MPV 9.4, Gran % 70.7 H, Lymph % (Auto) 20.0 L, Will % (Auto) 8.6 H, Eos % (Auto) 0.5 L, Baso % (Auto) 0.2, Gran # 6.28, Lymph # (Auto) 1.8, Will # (Auto) 0.8 H, Eos # (Auto) 0.0, Baso # (Auto) 0.02 I have reviewed the lab results: Yes - RAD Interpretation Radiology Orders: 11/27/17 11:04 CHEST PORTABLE [RAD] Stat 11/27/17 11:06 HEAD W/O CONTRAST [CT] Stat Finance Controller: Radiologist - EKG Interpretation Interpreted by ED Physician: Yes Type: 12 lead EKG - Scribe Statement The provider has reviewed the documentation as recorded by the Renaibe Leah Olson Provider Scribe Attestation: All medical record entries made by the Scribe were at my direction and personally dictated by me. I have reviewed the chart and agree that the record accurately reflects my personal performance of the history, physical exam, medical decision making, and the department course for this patient. I have also personally directed, reviewed, and agree with the discharge instructions and disposition. Disposition/Present on Arrival - Present on Arrival Any Indicators Present on Arrival: No History of DVT/PE: No History of Uncontrolled Diabetes: No Urinary Catheter: No History of Decub. Ulcer: No History Surgical Site Infection Following: None - Disposition Have Diagnosis and Disposition been Completed?: Yes Diagnosis: Syncope Disposition: HOSPITALIZED Disposition Time: 13:19 Patient Plan: Admission Condition: FAIR Discharge Instructions (ExitCare): Syncope (ED) Forms: [employer] (Swiss)
[2017-11-27 11:25] LABS: BASO # 0.02 K/mm3 (0.0-2.0); BASO % 0.2 % (0.0-3.0); EOS % 0.5 % (1.5-5.0); GRAN # 6.28 (1.4-6.5); GRAN % 70.7 % (50.0-68.0); HEMOGLOBIN 14.9 g/dL (14.0-18.0); LYMPH # 1.8 (1.2-3.4); MEAN CELL VOLUME 82.6 fl (80.0-105.0); MEAN CORPUSCULAR HEMOGLOBIN 29.4 pg (25.0-35.0); MEAN CORPUSCULAR HGB CONC 35.6 g/dl (31.0-37.0); MEAN PLATELET VOLUME 9.4 fl (7.0-11.0); MONO # 0.8 (0.1-0.6); MONO % 8.6 % (1.0-6.0); RBC 5.06 10^6/uL (3.5-6.1); RED CELL DISTRIBUTION WIDTH 12.3 % (11.5-14.5); WHITE BLOOD COUNT 8.9 10^3/ul (4.5-11.0)
[2017-11-27 11:35] LABS: INR 1.06 (0.93-1.08); PARTIAL THROMBOPLASTIN TIME 29.5 Seconds (25.1-36.5); PROTHROMBIN TIME 12.2 SECONDS (9.4-12.5)
[2017-11-27 11:48] LABS: ACETAMINOPHEN < 10.0 ug/ml (10.0-20.0); SALICYLATE < 1 mg/dL (2.0-20.0)
[2017-11-27 11:50] LABS: ALB/GLOB RATIO 1.4 (1.1-1.8); ALBUMIN 4.6 g/dL (3.0-4.8); ALT/SGPT 27 U/L (7-56); AST/SGOT 26 U/L (17-59); BLOOD UREA NITROGEN 13 mg/dL (7-21); CALCIUM 10.2 mg/dL (8.4-10.5); GFR AFRICAN-AMERICAN > 60; GFR NON-AFRICAN AMERICAN > 60
[2017-11-27 11:58] LABS: URINE BILIRUBIN NEGATIVE (NEGATIVE); URINE BLOOD NEGATIVE (NEGATIVE); URINE GLUCOSE (UA) NEGATIVE (NEGATIVE); URINE LEUKOCYTE ESTERASE NEGATIVE Leu/uL (NEGATIVE); URINE PROTEIN NEGATIVE mg/dL (<30 mg/dL); URINE UROBILINOGEN 0.2 E.U./dL (<1 E.U./dL)
--- NOTE | 2017-11-27 11:58 | RAD ---
HISTORY: near syncope COMPARISON: 11/13/2017 FINDINGS: LUNGS: No active pulmonary disease. PLEURA: No significant pleural effusion identified, no pneumothorax apparent. CARDIOVASCULAR: Normal. OSSEOUS STRUCTURES: No significant abnormalities. VISUALIZED UPPER ABDOMEN: Normal. OTHER FINDINGS: None. IMPRESSION: No active disease.
[2017-11-27 12:04] LABS: TROPONIN I < 0.01 ng/mL
--- NOTE | 2017-11-27 12:13 | CT ---
PROCEDURE: CT HEAD WITHOUT CONTRAST. HISTORY: ams COMPARISON: 02/08/2016 TECHNIQUE: Axial computed tomography images were obtained through the head/brain without intravenous contrast. Radiation dose: Total exam DLP = 883.67 mGy-cm. This CT exam was performed using one or more of the following dose reduction techniques: Automated exposure control, adjustment of the mA and/or kV according to patient size, and/or use of iterative reconstruction technique. FINDINGS: HEMORRHAGE: No intracranial hemorrhage. BRAIN: No mass effect or edema. No atrophy or chronic microvascular ischemic changes. VENTRICLES: Unremarkable. No hydrocephalus. CALVARIUM: Unremarkable. PARANASAL SINUSES: Unremarkable as visualized. No significant inflammatory changes. MASTOID AIR CELLS: Unremarkable as visualized. No inflammatory changes. OTHER FINDINGS: None. IMPRESSION: Normal CT of the Head. No intracranial mass, hemorrhage or evidence of acute infarct.
[2017-11-27 12:20] LABS: BARBITURATES, UR NEGATIVE (NEGATIVE); BENZODIAZEPINES, UR POSITIVE (NEGATIVE); OPIATES, UR NEGATIVE (NEGATIVE); PHENCYCLIDINE, UR NEGATIVE (NEGATIVE)
[2017-11-27 12:41] LABS: URINE APPEARANCE CLEAR (CLEAR); URINE COLOR YELLOW (YELLOW)
[2017-11-27] MEDS ORDERED: Ergocalciferol 50,000 Intl Units Cap PO SCH (17:45)
[2017-11-27] MEDS: POLYETHYLENE GLYCOL 3350 17 GM/Dose PACKET PO SCH (17:54)
[2017-11-27] MEDS ORDERED: Pneumococcal 23-Valent Vaccine IM ONE (19:26)
[2017-11-27 19:27] VITALS: BMI 29.2
[2017-11-27 22:04] LABS: TROPONIN I < 0.01 ng/mL
[2017-11-28] MEDS: Pantoprazole 40 mg EC Tab PO SCH (05:20)
--- NOTE | 2017-11-28 06:30 | CON ---
DATE: 11/27/2017 REASON FOR CONSULTATION: Followup syncope, cardiac evaluation. BRIEF CLINICAL HISTORY: A 52-year-old male with past medical history significant for hypertension, history of mitral valve prolapse, asthma, hypothyroidism, who is on Workmen's Compensation because of back problem and took a whole month July off and was in the psychiatric floor for anxiety disorder, recently discharged and wanted to take one week off on the long weekend of November, now supposed to go to work and last night started having palpitation, anxiety disorder and panic attack. 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 He couple of times opened his eyes off and on, but denies any chest pain, denies any shortness of breath at that time. PAST MEDICAL HISTORY: Significant for H. pylori, recently diagnosed hypertension, and anxiety disorder, recently discharged from Psychiatry floor. SOCIAL HISTORY: Denies any smoking. Denies any history of alcohol abuse. Recent cardiac workup as follows, patient had a cardiac catheterization on 05/09/2013, unremarkable coronary arteries, normal LV function, dated done by Dr. Granado. Following that, the patient had echocardiography done on 06/17/2017 that revealed normal LV function, ejection fraction 65%, trace aortic regurgitation. No evidence of mitral valve prolapse though the patient says, but by echo dated 06/07/2017, no evidence of mitral valve prolapse noted. Patient had a stress test dated 06/17/2017 that showed ejection fraction 56%, normal myocardial perfusion study in comparison to last study dated 07/26/2015 and no change noted. PAST SURGICAL HISTORY: As mentioned history of cardiac catheterization on 05/09/[address] Granado, had no significant coronary artery disease. ALLERGIES: PENICILLIN, ASPIRIN; INTOLERANCE TO ASPIRIN, GETS UPSET STOMACH. history of H. pylori. CURRENT MEDICATIONS: Patient taking at home amlodipine, zolpidem, Seroquel, fluoxetine, Colace, atorvastatin and Xanax. REVIEW OF SYSTEMS: As per HPI. PHYSICAL EXAMINATION: VITAL SIGNS: Height of the patient 5 feet 11 inches, weight of the patient 210 pounds, body mass index 29.3 kg/m2. Temperature afebrile, heart rate 74, blood pressure 135/85. HEENT: PERRLA. Extraocular muscles intact. NECK: Supple. No carotid bruit, no thyromegaly. CHEST: Clear to auscultation. HEART: S1 and S2 regular. ABDOMEN: Soft. EXTREMITIES: Clubbing and cyanosis negative. LABORATORY DATA: WBC 8.9, hemoglobin 14.9, hematocrit 41.8, platelet count 260. Chemistry shows sodium 138, potassium 3.9, chloride 98, carbon dioxide 24, anion gap of 20, BUN 13, creatinine 0.9. Troponin is 0.01. IMPRESSION: A 52-year-old male with history of psychiatric disorder, admitted with near syncope and chest pain appears atypical, most likely anxiety disorder, history of Workmen's Compensation, history of most recent cardiac workup in 05/2017 and negative stress, ejection fraction preserved, by echo also shows mitral regurgitation, trace tricuspid regurgitation. Patient had a cardiac catheterization in 2012, also shows normal coronaries done by Dr. Granado. RECOMMENDATION: Psych evaluation, resume medication, and if troponin remains negative, patient can be transferred to the psych floor for evaluation. No further cardiac workup is planned at this time. Patient is cleared from Cardiology point of view to be transferred to psychiatric floor. We will get lipid profile, TSH, hemoglobin A1c in the morning. No evidence of mitral valve prolapse on recent echo, though the patient carries the diagnosis of mitral valve prolapse but most recent echo did not show any evidence of mitral valve prolapse. Thank you Dr. Muse for providing us the opportunity in taking care of the patient, Sarkis Plaza. Shalonda Conrad MD
[2017-11-28 07:08] LABS: BASO # 0.02 K/mm3 (0.0-2.0); BASO % 0.3 % (0.0-3.0); EOS # 0.1 (0.0-0.7); GRAN # 4.12 (1.4-6.5); GRAN % 56.6 % (50.0-68.0); LYMPH # 2.3 (1.2-3.4); MEAN CELL VOLUME 83.8 fl (80.0-105.0); MEAN CORPUSCULAR HGB CONC 34.6 g/dl (31.0-37.0); MEAN PLATELET VOLUME 9.5 fl (7.0-11.0); MONO # 0.7 (0.1-0.6); MONO % 10.1 % (1.0-6.0); RBC 5.17 10^6/uL (3.5-6.1); RED CELL DISTRIBUTION WIDTH 12.6 % (11.5-14.5); WHITE BLOOD COUNT 7.3 10^3/ul (4.5-11.0)
--- NOTE | 2017-11-28 09:02 | CARD ---
APPROVED REPORT EKG Measurement Heart [id number] <Conclusion> Normal sinus rhythm Normal ECG No change
[2017-11-28] MEDS: POLYETHYLENE GLYCOL 3350 17 GM/Dose PACKET PO SCH ×2 (09:34→20:21)
--- NOTE | 2017-11-28 10:41 | CON ---
DATE: 11/28/2017 HISTORY OF PRESENT ILLNESS: The patient is a 52-year-old white male who is being worked up medically after he had a near syncopal episode that consisted of nausea, weakness and intermittent chest tightness and left arm pain. Apparently, the patient also forgot parts of this episode; apparently, he indicated that, that was all that he "could remember." Psychiatry was consulted. The patient has a psychiatric history. I reviewed recent notes and prior psychiatric medical records and met with the patient at bedside. He remains well oriented to month, year, location and circumstances. He has a history of depression and anxiety and at least two prior psychiatric admissions to [facility] in 01/2017 as well as 10/2017. The patient was recently discharged on Seroquel 100 at bedtime, Prozac 20 mg in the morning, Ambien 10 mg and Xanax 1 mg p.o. t.i.d. The patient reports that he has been taking these medications as well as going to counseling sessions at [facility] at least once weekly and has been there at least four to five times already. The patient has an appointment with Dr. Diggs on Thursday for psychiatric followup. The patient denies taking any drugs or drinking any alcohol. Denies taking more medications than prescribed. The patient denies having any hallucinations or suicidal thoughts. He still feels depressed and anxious; however, denies any acute stressors worsening these symptoms and he is aware of the therapeutic medications. The patient reports plan to continue follow up with [facility] as well as Dr. Diggs for medication management. He is coherent and as noted, well oriented during my interview; responses are consistent. He continues to tell me the same story about having an episode of dizziness, in which he may have lost consciousness as well as nausea. The patient reports that he cannot recall the rest of that episode. He denies having any pain or discomfort at this time. He denies an issues with the psychiatric medications in general. I reviewed his medication regimen with the patient and the patient is agreeable to increase Seroquel and discontinue Ambien as Ambien can be associated with forgetfulness which the patient was suffering from during the course of this episode. Labs and vital signs were reviewed. Relevant psychiatric medications include Xanax 1 mg p.o. t.i.d., Prozac 20 mg daily, Seroquel 100 mg at bedtime and Ambien 10 mg at bedtime. IMPRESSION: By history, major depressive disorder and anxiety disorder due to general medical condition with panic symptoms. RECOMMENDATIONS: We will continue with Seroquel 100 mg p.o. at bedtime, Xanax 1 mg p.o. t.i.d., Prozac 20 mg daily. However, we will discontinue Ambien 10 mg at bedtime and we will increase Seroquel to 125 mg to offset the lack of Ambien. Of note, the patient's psychiatric history was reviewed by this provider as well as social history and the patient denies any changes due to his history. He lives by himself and he is still under Workmen's Compensation for an injury. Denies any drug or alcohol use. Psychiatry will continue to follow up with the patient; however, he should be medically cleared today. He is psychiatrically cleared as well to follow up with Dr. Diggs on Thursday. Shelia Garcia MD [facility] # [id number]
--- NOTE | 2017-11-28 17:24 | CON ---
DATE: 11/28/2017 HISTORY OF PRESENT ILLNESS: This is a 52-year-old white male with past medical history of hypertension, asthma, hypothyroidism and came here with a passing out spell and the patient was recently discharged from the hospital and also started having palpitations and panic kind of attack. He said that he passed out. Does not recollect. PAST MEDICAL HISTORY: H. pylori, hypertension and anxiety and depression. REVIEW OF SYSTEMS: Ten-point review of systems was negative. PHYSICAL EXAMINATION: HEENT: Normocephalic, atraumatic. NECK: Supple. NEUROLOGIC: Alert, awake, orientated x3. No aphasia. Cranial nerves II through XII were tested. Pupils reactive. EOM intact. Visual field full. No facial asymmetry. Tongue midline. Motor examination: Moves all the extremities equally. Tone normal. Deep tendon reflexes 1+. Both plantars are downgoing. Sensory appears intact. Cerebellar gait deferred. IMPRESSION: Syncope, less likely seizure and multiple medical problems. CAT scan of the head was done, which was reported negative. The patient also has a mitral valve prolapse and anxiety. Continue present management. We will follow up. Bertin Song MD
[2017-11-29] MEDS: Pantoprazole 40 mg EC Tab PO SCH (06:41)
[2017-11-29 07:05] VITALS: O2SAT 96
[2017-11-29] MEDS: POLYETHYLENE GLYCOL 3350 17 GM/Dose PACKET PO SCH (09:46)
[2017-11-29 13:21] VITALS: BP 125/92; PULSE 55; RESP 20; TEMP 98.3
--- NOTE | 2017-11-29 21:16 | CON ---
DATE: 11/29/2017 HISTORY OF PRESENT ILLNESS: The patient is a 52-year-old male who Psychiatry is following up on the medical floor after being worked up for syncope or syncopal episode because patient has a psychiatric history. I reviewed recent notes and I met with the patient at bedside again today. His psychiatric medications were, for the most part, continued at the doses that he was discharged in 10/2017, specifically Prozac was continued at 20 and Xanax continued at 1 mg p.o. t.i.d. His Seroquel was increased to 125 at bedtime. Ambien was discontinued as associated with forgetfulness and dizziness as well, which was part of his presenting medical complaint. Patient remembers me from our interview yesterday as well as our interactions on the psychiatric unit. He remains well oriented to month, year, location, and circumstances. He continues to have some depression and anxiety, but these are related to returning back to work and having to cope with the stressors. He is not suicidal. He is not homicidal. He is coherent, good focus, and responses are goal directed and consistent. Patient's affect shows reactivity and range. There is no issue of perceptual disturbance whatsoever. Patient reports that he will continue to follow up at [facility] for therapy and will follow with Dr. Diggs for medication management on 11/30/2017. Insight and judgment are considered to be fair at this time and patient denies any issues at this time with medications, doses, specifically denies any side effects or discomfort associated with his meds. Labs and vital signs are reviewed. MEDICATIONS: Relevant psychiatric medications as noted above are Xanax 1 mg p.o. t.i.d., Prozac 20 mg daily, Seroquel 125 mg at bedtime. IMPRESSION: By history, patient has major depressive disorder and anxiety disorder due to general medical condition with panic symptoms. RECOMMENDATIONS: 1. We will continue with current medications as prescribed specifically Seroquel 125 mg at bedtime, Xanax 1 mg p.o. t.i.d., and Prozac 20 mg daily. 2. Patient is to follow up with Dr. Diggs upon discharge. Patient is being distressed today and follow up with Dr. Diggs on 11/30/2017 as well as continue therapy that he will start. 3. Psychiatry will sign off at this time. Please re-consult as necessary, if there are any new issues. Patient does not require psychiatric hospitalization at this time and he is not a danger to himself or others. Shelia Garcia MD
--- NOTE | 2017-11-30 09:07 | PN ---
DATE: 11/28/2017 SUBJECTIVE: Sarkis Plaza is a 53-year-old male, admitted with palpitation, anxiety and possibly passed out. He did not completely lose consciousness, but he felt he did. He felt very weak. At this time today, he seems stable, less panic. No panic attacks, slept well. No chest pain. Not shortness of breath. Seen by Cardiology, Dr. Conrad, who cleared him for discharge. His EKG was normal. Also, the patient was seen by psychiatric personal consultant, Dr. Shelia Garcia and Dr. Song, Neuro consultations. The patient, otherwise, comfortably, hemodynamically in no distress. Seems doing very well. PHYSICAL EXAMINATION: VITAL SIGNS: Temperature 98.1, heart rate 58, blood pressure 114/50, respirations 18, saturations 98%. HEAD AND NECK: Normal. No JVD. No thyromegaly. CHEST: Clear bilaterally. CARDIAC: First sound and second sound normal. ABDOMEN: Soft, nontender. EXTREMITIES: No edema. NEUROLOGICAL: Nonfocal. He is normal, alert, awake, oriented x3. The patient walked to the bathroom. He is relating no complaints. DATA: Laboratory studies: The patient had CBC, which shows white count 7.3, hemoglobin 15, hematocrit 43.3, platelets 233 with normal differential. Chemistry shows magnesium 2.2; phosphorus 5.6; hemoglobin A1c 5.6, which is normal. Troponin x2, which is normal. Cholesterol was normal at 76. Triglycerides normal. , LDL 81 and HDL 39. His TSH was 2.26. IMPRESSION AND PLAN: 1. Acute panic attack, anxiety disorder, associated with palpitations. The patient was seen by Psychiatry. Medications increased, Seroquel to 125 plus Ambien and Xanax. We will continue psych medication as it is. 2. Chest pain and palpitations. Seen by Cardiology. Stable to be discharged. He is cleared by him. 3. The patient has possibly syncope, unclear. The patient was seen by Neurology, Dr. Song. CT of the head was negative. The patient clinically ambulating with no focal weakness. He seems doing okay, ambulating, going to bathroom, steady and cleared for discharge. Plan is to continue current medications. Probably, the patient will be discharged in the morning. The patient has negative cardiac enzymes, hemodynamically stable, saturating good, ambulating and slept very well and doing okay, will be discharged in the morning. Keaton Muse MD
--- NOTE | 2017-11-30 11:38 | HP ---
MAIN COMPLAINT: Chest pain. HISTORY OF PRESENT ILLNESS: A 52-year-old male with history of hypertension, chronic generalized anxiety disorder, depression, has been recently discharged from psych floor, maybe a week ago, came in because he felt dizzy, weak, almost fell on the floor, the neighbor brought him home from front of his house, brought into his apartment and he also noted patient complained of left -sided chest pain. He has no shortness of breath, wheezing. He has no fever, no nausea or vomiting, no GI bleeding, no rectal bleeding, no other complaint. He does take only his medicine as prescribed including Seroquel 100 at bedtime and Ambien CR 12.5 mg daily and he does have appointment with his psychiatrist that should be seen this coming Thursday, within a few days. PAST MEDICAL HISTORY: As I mentioned before, the patient does have a history of hypertension, depression, multiple psychiatric admissions, hypercholesterolemia, gastric ulcer, peptic ulcer disease. He does have a history of chronic back pain, chronic disk disease, had physical therapy, esophagitis, history of diverticulosis, history of constipation with negative colonoscopy, history of generalized anxiety disorder. ALLERGIES: THE PATIENT IS ALLERGIC TO ASPIRIN. ACCORDING TO HIM, IT CAUSED GI PROBLEM BUT NO REAL SKIN RASH, BUT HE IS ALLERGIC TO PENICILLIN WITH RASH SYMPTOMS. REVIEW OF SYSTEMS: He always complained of GI symptoms, but seems better now. He will go to the bathroom at night, with frequent urination, at least twice a night. He has problem sleeping, for which he taken Ambien, also history of anxiety and thinking especially at night, but it seems better now with the current medications. PHYSICAL EXAMINATION: VITAL SIGNS: On 11/27/2017, his vitals signs is as follows: Temperature 98, heart rate 74, blood pressure 135/85, respirations 18, saturations 99% on room air. HEAD AND NECK: Normal. No JVD. No thyromegaly. CHEST: Clear bilaterally. Tenderness on the left lateral chest wall on pressure. CARDIAC: First sound and second sound normal. No murmur, rub or gallop. ABDOMEN: Soft, nontender. EXTREMITIES: No edema. NEUROLOGICAL: Normal. LABORATORY DATA: White count of 8.9, hemoglobin 14.9, hematocrit 41.8, platelets 260. Chemistry shows sodium 138, potassium 3.9, chloride 98, bicarbonate 24, BUN 13, creatinine 0.9, blood sugar 112, calcium 10.2. Liver enzyme seems normal. Albumin and globulin is normal. PT and PTT was normal. Urine toxic drug screen, no drugs. Negative for any street drugs. His urine analysis is normal. Patient also had a chest x-ray and head CT which is negative. Chest x-ray was reported as no active pulmonary disease and also, he had an electrocardiogram, which showed normal sinus rhythm, normal EKG, no change. IMPRESSION AND PLAN: 1. This is a 52-year-old male with history of hypertension, psych issues including generalized anxiety disorder, had felt dizzy, palpitations, tachycardic, that resolved when he came in here. The patient is saturating normal and his heart rate was within normal range, it was 62 in Emergency Room, saturating 99%, almost 100% and no respiratory distress. His EKG is normal. Chest x-ray, no active disease, probably we will admit the patient with acute chest pain, etiology could be cardiac or more likely anxiety related. We will get Cardiology consult, Dr. Conrad, to evaluate him. I will continue all his medications. 2. Possibly generalized anxiety disorder. We will get Psych consult, Dr. Shaw, to see him and we will continue his current psych medications and we will follow up with his specialists. 3. Resume all his medications that he was taking at home and follow up clinically. Keatno Muse MD
--- NOTE | 2017-11-30 14:44 | CP.PCM.PCO ---
Physician Communication Note - Physician Communication Note Physician Communication Note: pt was discharged
--- NOTE | 2017-12-01 04:16 | DS ---
HOSPITAL COURSE: Patient was admitted with palpitations, anxiety, panic attack and also chest pain and history of possible pass out. Patient was seen by Cardiology, Dr. Conrad; Neurology, Dr. Song; Psychiatry, Dr. Shelia Garcia and patient was evaluated, had a CT of the head which was negative; EKG which was normal. Chest x-ray shows no active disease. Troponin x2 is negative. Patient has also cholesterol checked, CBC and chemistry which was within normal range. All labs discussed with the patient in detail. Clinically improved, was stable. His medications increased, Seroquel to 125 and his Ambien 10 mg was given to the patient, seems doing very well on that. PHYSICAL EXAMINATION: VITAL SIGNS: Temperature 98.4, heart rate 54, blood pressure 103/71, respirations 18, saturation 97% on room air. HEAD AND NECK: Normal. No JVD. No thyromegaly. CHEST: Clear bilateral. CARDIAC: First sound and second sound normal. ABDOMEN: Soft, nontender. EXTREMITIES: No edema. NEUROLOGIC: Normal. LABORATORY DATA: As mentioned before, chemistry, comprehensive metabolic panel was normal. Hemoglobin A1c 5.6. His liver enzymes are normal. Troponin was negative and his lipid profile was within normal limits with cholesterol total 150, triglycerides 76. His TSH is 2.26 and his magnesium level was 2.2, which was normal. Patient also had a CBC which was normal. White count 7.3, hemoglobin 15, hematocrit 43.3 and platelets 233. Patient had a CT of the head, which was stable and was being discharged to follow up as an outpatient. DISCHARGE DIAGNOSES: 1. Generalized panic attack. 2. Depression. 3. Anxiety disorder. 4. Insomnia. 5. History of constipation. 6. Syncope with possibly multiple medications or secondary to panic attack. 7. Hypercholesterolemia. 8. History of hypertension. 9. Peptic ulcer disease. 10. Acid reflux symptoms. 11. Chest pain, atypical, noncardiac. PLAN: Continue Xanax 1 mg t.i.d. Continue Ambien 10 mg at night, Seroquel 125 at bedtime and Prozac 20 mg p.o. daily. We will continue his psych medications and follow up clinically. His blood pressure really is very good, his 2.5 mg Norvasc, which may be we will stop it later before meals and also continue MiraLax for chronic constipation, Protonix 40 mg daily, Colace 100 b.i.d. and Lipitor 40 mg for hypercholesterolemia. Discharge home. Follow up in a week. Keaton Muse MD [facility] # [id number]
== END 2017-11-29 14:58 | disposition home or self-care (01) ==
LOC: ED 10:55 → ERH 13:17 → 2RNO 15:40
PROVIDERS: ADMIT Internal Medicine; ATTEND Internal Medicine
DX: F41.0 Panic disorder [episodic paroxysmal anxiety] (principal); R55 Syncope and collapse; R07.89 Other chest pain; F32.9 Major depressive disorder, single episode, unspecified; G47.00 Insomnia, unspecified; E78.00 Pure hypercholesterolemia, unspecified; I10 Essential (primary) hypertension; K21.9 Gastro-esophageal reflux disease without esophagitis; K27.9 Peptic ulcer, site unspecified, unspecified as acute or chronic, without hemorrhage or perforation; K59.00 Constipation, unspecified; E03.9 Hypothyroidism, unspecified; I34.1 Nonrheumatic mitral (valve) prolapse; F06.4 Anxiety disorder due to known physiological condition; R00.2 Palpitations; Z88.0 Allergy status to penicillin
CPT/HCPCS: 36415; 70450; 71045; 80053; 80061; 81003; 82550; 83036; 83615; 83735; 84100; 84443; 84484; 85025; 85610; 85730; 93005; 99285; G0378; G0480

== ENCOUNTER 2018-06-28 12:22 | Emergency (ER) | payer BC ==
[2018-06-28 12:23] VITALS: BMI 29.2
[2018-06-28 12:36] VITALS: RESP 18; TEMP 97.6
[2018-06-28] MEDS ORDERED: Sodium Chloride 0.9% 1,000 ML IV ONE ×2 (12:57→12:59)
[2018-06-28 13:10] LABS: BASO # 0.02 K/mm3 (0.0-2.0); BASO % 0.2 % (0.0-3.0); EOS % 0.1 % (1.5-5.0); HEMOGLOBIN 15.7 g/dL (14.0-18.0); LYMPH # 1.7 (1.2-3.4); LYMPH % 18.4 % (22.0-35.0); MEAN CELL VOLUME 87.8 fl (80.0-105.0); MEAN CORPUSCULAR HEMOGLOBIN 29.5 pg (25.0-35.0); MEAN CORPUSCULAR HGB CONC 33.5 g/dl (31.0-37.0); MEAN PLATELET VOLUME 10.1 fl (7.0-11.0); MONO # 0.4 (0.1-0.6); MONO % 4.7 % (1.0-6.0); RBC 5.33 10^6/uL (3.5-6.1); RED CELL DISTRIBUTION WIDTH 12.7 % (11.5-14.5); WHITE BLOOD COUNT 9.2 10^3/uL (4.5-11.0)
--- NOTE | 2018-06-28 13:12 | ED PDOC ---
Arrival/HPI - General Chief Complaint: Weakness/Neurological Deficit Time Seen by Provider: 06/28/18 12:33 Historian: Patient - History of Present Illness Narrative History of Present Illness (Text): 06/28/18 12:23 Naren Plaza is a 52 year old male who presents to the emergency department with complaints of worsening headache since 2 days ago. Patient informs that pain starts from the neck and goes towards the forehead. Patient describes pain as tension. Patient states headache is associated with photophobia and is not "worst of life". Patient's symptoms did not improve much after Tylenol. Patient denies fall or trauma, neck stiffness, body aches, fevers, chills, dizziness, chest pain, shortness of breath, dyspnea on exertion, cough, abdominal pain, nausea, vomiting, diarrhea, back pain, neck pain, or any other complaint. Past medical history: hypertension, mitral valve, prolapse, asthma, hypothyroidism, and GERD Past surgical history: Cardiac cath Time/Duration: < week Symptom Onset: Gradual Symptom Course: Worsening Quality: Tightness (Tension) Activities at Onset: Light Context: Home Past Medical History - Provider Review Nursing Documentation Reviewed: Yes - Past History Past History: No Previous - Infectious Disease Hx of Infectious Diseases: None - Tetanus Immunization Tetanus Immunization: Unknown - Cardiac Hx Cardiac Disorders: Yes Hx Cardiac Arrhythmia: Yes Hx Hypertension: Yes Hx Mitral Valve Prolapse: Yes - Pulmonary Hx Respiratory Disorders: Yes Hx Asthma: Yes - Neurological Hx Neurological Disorder: Yes Hx Dizziness: Yes (SYNCOPE 18) - HEENT Hx HEENT Disorder: Yes - Renal Hx Renal Disorder: No - Endocrine/Metabolic Hx Endocrine Disorders: Yes Hx Hypothyroidism: Yes - Hematological/Oncological Hx Blood Disorders: No - Integumentary Hx Dermatological Disorder: No - Musculoskeletal/Rheumatological Hx Musculoskeletal Disorders: Yes (RIB FX LEFT) Hx Falls: Yes Hx Fractures: Yes (left rib) - Gastrointestinal Hx Gastrointestinal Disorders: Yes Hx Gastroesophageal Reflux: Yes Other/Comment: H. Pylori, IBS, biliary colic, GASTRO PARESIS - Genitourinary/Gynecological Hx Genitourinary Disorders: No - Psychiatric Hx Psychophysiologic Disorder: Yes (INSOMNIA) Hx Anxiety: Yes Hx Depression: Yes Hx Substance Use: No - Past Surgical History Past Surgical History: No Previous - Surgical History Hx Cardiac Catheterization: Yes - Anesthesia Hx Anesthesia: Yes Hx Anesthesia Reactions: No Hx Malignant Hyperthermia: No - Suicidal Assessment Feels Threatened In Home Enviroment: No Family/Social History - Physician Review Nursing Documentation Reviewed: Yes Smoking Status: Former Smoker Hx Alcohol Use: Yes (OCCASIONAL) Hx Substance Use: No Hx Substance Use Treatment: No Allergies/Home Meds Allergies/Adverse Reactions: Allergies aspirin Allergy (Verified 11/27/17 14:21) stomach inflammation stomach inflammation Penicillins Allergy (Verified 11/27/17 14:21) ANAPHYLAXIS Review of Systems - Physician Review All systems were reviewed & negative as marked: Yes - Review of Systems Constitutional: Fatigue. absent: Fevers, Night Sweats Eyes: Photophobia Respiratory: absent: SOB, Cough Cardiovascular: absent: Chest Pain Gastrointestinal: absent: Abdominal Pain, Diarrhea, Nausea, Vomiting Genitourinary Male: absent: Dysuria Musculoskeletal: absent: Back Pain, Neck Pain Skin: absent: Rash Neurological: Headache. absent: Dizziness Physical Exam Vital Signs Reviewed: Yes Vital Signs Temp Pulse Resp BP Pulse Ox 06/28/18 12:23 97.6 F 74 18 125/81 97 Temperature: Afebrile Blood Pressure: Normal Pulse: Regular Respiratory Rate: Normal Appearance: Positive for: Well-Appearing, Non-Toxic, Comfortable Pain Distress: None Mental Status: Positive for: Alert and Oriented X 3 - Systems Exam Head: Present: Atraumatic, Normocephalic Pupils: Present: PERRL Extroacular Muscles: Present: EOMI Conjunctiva: Present: Normal Mouth: Present: Moist Mucous Membranes Neck: Present: Normal Range of Motion. No: Meningeal Signs, MIDLINE TENDERNESS Respiratory/Chest: Present: Clear to Auscultation, Good Air Exchange. No: Respiratory Distress, Accessory Muscle Use Cardiovascular: Present: Regular Rate and Rhythm, Normal S1, S2. No: Murmurs Abdomen: No: Tenderness, Distention, Peritoneal Signs Back: Present: Normal Inspection. No: CVA Tenderness, Midline Tenderness Upper Extremity: Present: Normal Inspection. No: Cyanosis, Edema Lower Extremity: Present: Normal Inspection. No: Edema Neurological: Present: GCS=15, CN II-XII Intact, Speech Normal, Motor Func Grossly Intact, Normal Sensory Function, Normal Cerebellar Funct, Gait Normal Skin: Present: Warm, Dry, Normal Color. No: Rashes Psychiatric: Present: Alert, Oriented x 3, Normal Insight, Normal Concentration Medical Decision Making ED Course and Treatment: Impression: Patient is a 52 year old male who presents to the Emergency department with complaints of headache. Normal neuro exam. No FND. No trauma or falls. Likely migraine ZHONG. Will seek imaging and labs. He notes allergy to NSAIDS. No meningeal signs. Plan: -- Labs -- CT Spine -- Reglan -- IV Fluids -- Reassess and disposition Prior Visits: Notes and results from previous visits were reviewed. Progress Notes: 06/28/18 15:[address] of head reviewed by radiologist, shows no acute findings. CT of Cervical Spine reviewed by radiologist, shows no acute findings. 06/28/18 15:34 Pt notes resolution of ZHONG, repeat neuro exam unremarkable. No meningeal signs, clear for d/c home. - RAD Interpretation Radiology Orders: 06/28/18 12:59 CERVICAL SPINE W/O CONTRAST [CT] Stat Impregnation Operator: Radiologist - Medication Orders Current Medication Orders: Sodium Chloride (Sodium Chloride 0.9%) 1,000 mls @ 100 mls/hr IV .Q10H ONE Stop: 06/28/18 22:56 Last Admin: 06/28/18 13:07 Dose: 100 mls/hr eMAR Start Stop Document 06/28/18 13:07 CLARISSE (Rec: 06/28/18 13:07 CLARISSE [id number]) Intravenous Solution Start Date 06/28/18 Start Time 13:07 End Date 06/28/18 End time 14:07 Total Infusion Time 60 Discontinued Medications Sodium Chloride (Sodium Chloride 0.9%) 1,000 mls @ 250 mls/hr IV .Q4H ONE Stop: 06/28/18 16:56 Last Admin: 06/28/18 13:09 Dose: Not Given Non-Admin Reason: order cancelled Metoclopramide HCl (Reglan) 10 mg IVP STAT STA Stop: 06/28/18 12:58 Last Admin: 06/28/18 13:07 Dose: 10 mg IVP Administration Document 06/28/18 13:07 CLARISSE (Rec: 06/28/18 13:07 CLARISSE [id number]) Charges for Administration # of IVP Administrations 1 - Scribe Statement The provider has reviewed the documentation as recorded by the Eric wilde with Josh All medical record entries made by the Scribe were at my direction and personally dictated by me. I have reviewed the chart and agree that the record accurately reflects my personal performance of the history, physical exam, medical decision making, and the department course for this patient. I have also personally directed, reviewed, and agree with the discharge instructions and disposition. Disposition/Present on Arrival - Present on Arrival Any Indicators Present on Arrival: No History of DVT/PE: No History of Uncontrolled Diabetes: No Urinary Catheter: No History of Decub. Ulcer: No History Surgical Site Infection Following: None - Disposition Have Diagnosis and Disposition been Completed?: Yes Diagnosis: Migraine Disposition: HOME/ ROUTINE Disposition Time: 15:41 Condition: GOOD Discharge Instructions (ExitCare): Migraine Headache (DC) Additional Instructions: CATHERINE PLAZA, thank you for letting us take care of you today. Your provider was Mahendra Truong and you were treated for WEAK/DIZZY NECK AND HEAD. The emergency medical care you received today was directed at your acute symptoms. If you were prescribed any medication, please fill it and take as directed. It may take several days for your symptoms to resolve. Return to the Emergency Department if your symptoms worsen, do not improve, or if you have any other problems. Please contact your doctor or call one of the physicians/clinics you have been referred to that are listed on the Patient Visit Information form that is included in your discharge packet. Bring any paperwork you were given at discharge with you along with any medications you are taking to your follow up visit. Our treatment cannot replace ongoing medical care by a primary care provider outside of the emergency department. Thank you for allowing the [facility] team to be part of your care today. If you had an X-Ray or CT scan: A Radiologist will review the ED reading if any change in treatment is needed we will contact you. If you had a blood, urine, or wound culture: It will take several days for the results, if any change in treatment is needed we will contact you. If you had an STI test: It will take 48 hours for the results. Please call after 1 week if you have not heard back. Referrals: Keaton Muse MD [Primary Care Provider] - Follow up with primary Bertin Song MD [Staff Provider] - Follow up with primary Forms: [employer] ([place] African)
[2018-06-28 13:21] LABS: ALB/GLOB RATIO 1.2 (1.1-1.8); ALBUMIN 4.8 g/dL (3.0-4.8); ALT/SGPT 19 U/L (7-56); AST/SGOT 31 U/L (17-59); BLOOD UREA NITROGEN 17 mg/dL (7-21); CALCIUM 9.6 mg/dL (8.4-10.5); GFR NON-AFRICAN AMERICAN > 60
--- NOTE | 2018-06-28 13:54 | CT ---
Date of service: 06/28/2018 PROCEDURE: CT Cervical Spine without contrast HISTORY: headache, enck pain COMPARISON: None available. TECHNIQUE: Axial computed tomography images were obtained of the cervical spine without the use of intravenous contrast. Coronal and sagittal reformatted images were created and reviewed. Radiation dose: Total exam DLP = 693.17 mGy-cm. This CT exam was performed using one or more of the following dose reduction techniques: Automated exposure control, adjustment of the mA and/or kV according to patient size, and/or use of iterative reconstruction technique. FINDINGS: VERTEBRAE: No fracture. Normal alignment. No destructive bony lesion. DISCS/SPINAL CANAL/NEURAL FORAMINA: No significant central canal or neural foraminal stenosis. Discs heights are grossly preserved. PARASPINAL SOFT TISSUES: Unremarkable. OTHER FINDINGS: None. IMPRESSION: No acute findings
--- NOTE | 2018-06-28 14:48 | CT ---
Date of service: 06/28/2018 PROCEDURE: CT HEAD WITHOUT CONTRAST. HISTORY: duron COMPARISON: 11/27/2017 TECHNIQUE: Axial computed tomography images were obtained through the head/brain without intravenous contrast. Radiation dose: Total exam DLP = 960.03 mGy-cm. This CT exam was performed using one or more of the following dose reduction techniques: Automated exposure control, adjustment of the mA and/or kV according to patient size, and/or use of iterative reconstruction technique. FINDINGS: HEMORRHAGE: No intracranial hemorrhage. BRAIN: No mass effect or edema. No atrophy or chronic microvascular ischemic changes. VENTRICLES: Unremarkable. No hydrocephalus. CALVARIUM: Unremarkable. PARANASAL SINUSES: Unremarkable as visualized. No significant inflammatory changes. MASTOID AIR CELLS: Unremarkable as visualized. No inflammatory changes. OTHER FINDINGS: None. IMPRESSION: No acute findings
[2018-06-28 16:23] VITALS: BP 140/72; PULSE 76; O2SAT 100
== END 2018-06-28 16:31 | disposition home or self-care (01) ==
LOC: ED 12:22
DX: G43.909 Migraine, unspecified, not intractable, without status migrainosus (principal); I10 Essential (primary) hypertension; E03.9 Hypothyroidism, unspecified; Z87.891 Personal history of nicotine dependence
CPT/HCPCS: 70450; 72125; 80053; 83735; 85025; 96361; 96374; 99285; J2765; J7030

== ENCOUNTER 2018-09-09 07:22 | Emergency (ER) | payer BC ==
[2018-09-09 07:34] VITALS: BMI 27.3
[2018-09-09] MEDS ORDERED: Sodium Chloride 0.9% 1,000 ML IV STA (08:33)
--- NOTE | 2018-09-09 08:42 | ED PDOC ---
Arrival/HPI - General Chief Complaint: Abdominal Pain Time Seen by Provider: 09/09/18 08:10 Historian: Patient - History of Present Illness Narrative History of Present Illness (Text): 09/09/18 08:10 Naren Plaza is a 53 year old male, with a past medical history of GERD, IBS, hiatal hernia, herniated discs, anxiety (on ambien and xanax), who presents to the emergency department complaining of abdominal pain radiating to middle back, flanks bilaterally, ribs bilaterally and up to chest since 1 week. Patient informs middle back pain began 2 weeks ago. Patient notes decreased appetite and is unable to tolerate liquid or food PO. Patient notes decreased urinary frequency secondary to decreased PO liquid intake. Patient also notes white tongue and sour taste in mouth. Appreciates chills and shortness of breath. Also notes nausea. Patient denies similarity to GERD exacerbation. Last bowel movement yesterday and was solid. Patient denies medications for current symptoms. Patient denies fevers, headache, dizziness, vision changes, chest pain, cough, vomiting, diarrhea, dysuria, hematuria, dark/bloody stool, neck pain, rash, diaphoresis, or any other complaint Time/Duration: > week (middle back pain), 1 week (abdominal pain) Symptom Onset: Gradual Symptom Course: Worsening Activities at Onset: Light Context: Home Past Medical History - Provider Review Nursing Documentation Reviewed: Yes - Past History Past History: No Previous - Infectious Disease Hx of Infectious Diseases: None - Tetanus Immunization Tetanus Immunization: Unknown - Cardiac Hx Cardiac Disorders: Yes Hx Cardiac Arrhythmia: Yes Hx Hypertension: Yes Hx Mitral Valve Prolapse: Yes - Pulmonary Hx Respiratory Disorders: Yes Hx Asthma: Yes - Neurological Hx Neurological Disorder: Yes Hx Dizziness: Yes (SYNCOPE 11-27-17) - HEENT Hx HEENT Disorder: Yes - Renal Hx Renal Disorder: No - Endocrine/Metabolic Hx Endocrine Disorders: Yes Hx Hypothyroidism: Yes - Hematological/Oncological Hx Blood Disorders: No - Integumentary Hx Dermatological Disorder: No - Musculoskeletal/Rheumatological Hx Musculoskeletal Disorders: Yes (RIB FX LEFT) Hx Falls: Yes Hx Fractures: Yes (left rib) - Gastrointestinal Hx Gastrointestinal Disorders: Yes Hx Gastroesophageal Reflux: Yes Other/Comment: H. Pylori, IBS, biliary colic, GASTRO PARESIS - Genitourinary/Gynecological Hx Genitourinary Disorders: No - Psychiatric Hx Psychophysiologic Disorder: Yes (INSOMNIA) Hx Anxiety: Yes Hx Depression: Yes Hx Substance Use: No - Past Surgical History Past Surgical History: No Previous - Surgical History Hx Cardiac Catheterization: Yes - Anesthesia Hx Anesthesia: Yes Hx Anesthesia Reactions: No Hx Malignant Hyperthermia: No - Suicidal Assessment Feels Threatened In Home Enviroment: No Family/Social History - Physician Review Nursing Documentation Reviewed: Yes Smoking Status: Former Smoker Hx Alcohol Use: Yes (OCCASIONAL) Hx Substance Use: No Hx Substance Use Treatment: No Allergies/Home Meds Allergies/Adverse Reactions: Allergies aspirin Allergy (Verified 09/09/18 07:58) stomach inflammation stomach inflammation Penicillins Allergy (Verified 09/09/18 07:58) ANAPHYLAXIS Review of Systems - Physician Review All systems were reviewed & negative as marked: Yes - Review of Systems Constitutional: Other (chills). absent: Fevers Eyes: absent: Vision Changes Respiratory: SOB. absent: Cough Cardiovascular: absent: Chest Pain Gastrointestinal: Abdominal Pain (radiating to middle back, flanks bilaterally, ribs bilaterally, up to chest), Nausea, Appetite Changes (decreased appetite), Food Intolerance (unable to tolerate food or liquid PO). absent: Diarrhea, Vomiting, Hematochezia Genitourinary Male: Frequency (decreased frequency secondary to decreased fluid intake PO ). absent: Dysuria, Hematuria Musculoskeletal: Back Pain (middle back pain). absent: Neck Pain Neurological: absent: Headache, Dizziness Physical Exam Vital Signs Reviewed: Yes Vital Signs Temp Pulse Resp BP Pulse Ox 09/09/18 07:33 97.7 F 66 16 140/90 98 Temperature: Afebrile Blood Pressure: Normal Pulse: Regular Respiratory Rate: Normal Appearance: Positive for: Well-Appearing, Non-Toxic, Comfortable Pain Distress: None Mental Status: Positive for: Alert and Oriented X 3 - Systems Exam Head: Present: Atraumatic, Normocephalic Pupils: Present: PERRL Extroacular Muscles: Present: EOMI Conjunctiva: Present: Normal Mouth: Present: Moist Mucous Membranes Neck: Present: Normal Range of Motion Respiratory/Chest: Present: Clear to Auscultation, Good Air Exchange. No: Respiratory Distress, Accessory Muscle Use, Wheezes, Rales, Rhonchi Cardiovascular: Present: Regular Rate and Rhythm, Normal S1, S2. No: Murmurs, Rub, Gallop Abdomen: Present: Tenderness (episgastric tenderness). No: Distention, Peritoneal Signs, Rebound, Guarding Back: Present: Normal Inspection. No: CVA Tenderness, Midline Tenderness, Paraspinal Tenderness Upper Extremity: Present: Normal Inspection, Normal ROM, NORMAL PULSES, Neurovascularly Intact, Capillary Refill < 2s. No: Cyanosis, Edema Lower Extremity: Present: Normal Inspection, NORMAL PULSES, Normal ROM, Neurovascularly Intact, Capillary Refill < 2 s. No: Edema Neurological: Present: GCS=15, CN II-XII Intact, Speech Normal, Motor Func Duyen sly Intact Skin: Present: Warm, Dry, Normal Color. No: Rashes Psychiatric: Present: Alert, Oriented x 3, Normal Insight, Normal Concentration Medical Decision Making ED Course and Treatment: 09/09/18 08:10 Impression: Patient is a 53 year old male with a history of GERD, IBS, hiatal hernia, herniated discs, and anxiety (on ambien and xanax), who presents to the emergency department complaining of abdominal pain radiating to the middle back, flanks bilaterally, ribs bilaterally, and up to chest. Patient appreciates decreased appetite and is unable to tolerate food or liquid PO. Patient notes decreased urinary frequency secondary to decreased liquid intake. Notes chills, nausea, and shortness of breath Patient notes middle back pain began two weeks ago. Patient's last bowel movement was yesterday and normal. Patient denies medication for current symptoms. Denies similarity to GERD exacerbation. Denies fevers, headache, dizziness, vision changes, diarrhea. On exam; epigastric tenderness, no rebound, rigidity. Otherwise unremarkable Plan: -- CT Abdomen/Pelvis IV Contrast -- Labs -- Chest X-Ray -- IV Fluids -- Zofran Inj -- Urinalysis -- Reassess and disposition Prior Visits: Notes and results from previous visits were reviewed. Progress Notes: 09/09/18 08:10 Reviewed EKG, shows: NSR at 65 BPM. Normal QRS. Normal [place]. 09/09/18 10:15 CT A/P w/ IV contrast shows: IMPRESSION: Unremarkable contrast enhanced CT of the abdomen and pelvis. - RAD Interpretation Radiology Orders: 09/09/18 08:33 ABD & PELVIS IV CONTRAST ONLY [CT] Stat 09/09/18 08:35 CHEST PORTABLE [RAD] Stat - EKG Interpretation Interpreted by ED Physician: Yes Type: 12 lead EKG - Medication Orders Current Medication Orders: Sodium Chloride (Sodium Chloride 0.9%) 1,000 mls @ 1,000 mls/hr IV .Q1H STA Stop: 09/09/18 09:32 Discontinued Medications Ondansetron HCl (Zofran Inj) 4 mg IVP STAT STA Stop: 09/09/18 08:34 - Scribe Statement The provider has reviewed the documentation as recorded by the Scribe Chacorta Valles All medical record entries made by the Scribe were at my direction and personally dictated by me. I have reviewed the chart and agree that the record accurately reflects my personal performance of the history, physical exam, medi margoth decision making, and the department course for this patient. I have also personally directed, reviewed, and agree with the discharge instructions and disposition. Disposition/Present on Arrival - Present on Arrival Any Indicators Present on Arrival: No History of DVT/PE: No History of Uncontrolled Diabetes: No Urinary Catheter: No History of Decub. Ulcer: No History Surgical Site Infection Following: None - Disposition Have Diagnosis and Disposition been Completed?: Yes Diagnosis: Abdominal pain Disposition: HOME/ ROUTINE Disposition Time: 10:40 Patient Plan: Discharge Condition: STABLE Discharge Instructions (ExitCare): Acute Abdomen (Belly Pain), Adult (DC) Additional Instructions: CATHERINE PLAZA, thank you for letting us take care of you today. Your provider was Yris Ribera MD and you were treated for shortness of breath. The emergency medical care you received today was directed at your acute symptoms. If you were prescribed any medication, please fill it and take as directed. It may take several days for your symptoms to resolve. Return to the Emergency Department if your symptoms worsen, do not improve, or if you have any other problems. Please contact your doctor or call one of the physicians/clinics you have been referred to that are listed on the Patient Visit Information form that is included in your discharge packet. Bring any paperwork you were given at discharge with you along with any medications you are taking to your follow up visit. Our treatment cannot replace ongoing medical care by a primary care provider outside of the emergency department. Thank you for allowing the [facility] team to be part of your care today. If you had an X-Ray or CT scan: A Radiologist will review the ED reading if any change in treatment is needed we will contact you. If you had a blood, urine, or wound culture: It will take several days for the results, if any change in treatment is needed we will contact you. If you had an STI test: It will take 48 hours for the results. Please call after 1 week if you have not heard back. Referrals: Keaton Muse MD [Family Provider] - Follow up with primary Juni Loera DO [Staff Provider] - Follow up with primary Forms: [employer] ([place])
[2018-09-09 08:44] LABS: BASO # 0.02 K/mm3 (0.0-2.0); BASO % 0.3 % (0.0-3.0); EOS # 0.1 (0.0-0.7); EOS % 1.2 % (1.5-5.0); HEMOGLOBIN 14.6 g/dL (14.0-18.0); LYMPH # 1.7 (1.2-3.4); LYMPH % 29.5 % (22.0-35.0); MEAN CELL VOLUME 87.7 fl (80.0-105.0); MEAN CORPUSCULAR HEMOGLOBIN 28.5 pg (25.0-35.0); MEAN CORPUSCULAR HGB CONC 32.5 g/dl (31.0-37.0); MEAN PLATELET VOLUME 10.1 fl (7.0-11.0); MONO # 0.4 (0.1-0.6); RBC 5.12 10^6/uL (3.5-6.1); RED CELL DISTRIBUTION WIDTH 12.6 % (11.5-14.5); WHITE BLOOD COUNT 5.8 10^3/uL (4.5-11.0)
[2018-09-09 08:55] LABS: ALB/GLOB RATIO 1.2 (1.1-1.8); ALBUMIN 4.4 g/dL (3.0-4.8); ALT/SGPT 17 U/L (7-56); AST/SGOT 29 U/L (17-59); BLOOD UREA NITROGEN 16 mg/dL (7-21); CALCIUM 9.5 mg/dL (8.4-10.5); GFR NON-AFRICAN AMERICAN > 60; LIPASE 48 U/L (23-300)
[2018-09-09 09:06] LABS: TROPONIN I < 0.01 ng/mL
[2018-09-09 09:17] VITALS: RESP 18
[2018-09-09 09:46] LABS: URINE BILIRUBIN NEGATIVE (NEGATIVE); URINE BLOOD NEGATIVE (NEGATIVE); URINE GLUCOSE (UA) NEGATIVE (NEGATIVE); URINE LEUKOCYTE ESTERASE NEGATIVE Leu/uL (NEGATIVE); URINE PROTEIN NEGATIVE mg/dL (<30 mg/dL); URINE UROBILINOGEN 0.2 E.U./dL (<1 E.U./dL)
[2018-09-09 09:49] LABS: URINE APPEARANCE CLEAR (CLEAR); URINE COLOR YELLOW (YELLOW)
--- NOTE | 2018-09-09 10:18 | CT ---
Date of service: 09/09/2018 PROCEDURE: CT Abdomen and Pelvis with contrast HISTORY: epigastric pain COMPARISON: 06/17/2017 TECHNIQUE: Contrast dose: 150 cc of Omni 350 Radiation dose: Total exam DLP = 750.1 mGy-cm. This CT exam was performed using one or more of the following dose reduction techniques: Automated exposure control, adjustment of the mA and/or kV according to patient size, and/or use of iterative reconstruction technique. FINDINGS: LOWER THORAX: Unremarkable. LIVER: Unremarkable. No gross lesion or ductal dilatation. GALLBLADDER AND BILE DUCTS: Unremarkable. PANCREAS: Unremarkable. No gross lesion or ductal dilatation. SPLEEN: Unremarkable. ADRENALS: Unremarkable. No mass. KIDNEYS AND URETERS: Unremarkable. No hydronephrosis. No solid mass. VASCULATURE: Unremarkable. No aortic aneurysm. No aortic atherosclerotic calcification or mural plaque present. BOWEL: Unremarkable. No obstruction. No gross mural thickening. APPENDIX: Normal appendix. PERITONEUM: Unremarkable. No free fluid. No free air. LYMPH NODES: Unremarkable. No enlarged lymph nodes. BLADDER: Unremarkable. REPRODUCTIVE: Unremarkable. BONES: No acute fracture. OTHER FINDINGS: None. IMPRESSION: Unremarkable contrast enhanced CT of the abdomen and pelvis.
[2018-09-09 11:05] VITALS: BP 128/79; PULSE 77; TEMP 97.9; O2SAT 97
--- NOTE | 2018-09-09 12:23 | RAD ---
Date of service: 09/09/2018 HISTORY: epigastric pain COMPARISON: 11/27/2017 TECHNIQUE: 1 view obtained. FINDINGS: LUNGS: No active pulmonary disease. PLEURA: No significant pleural effusion identified, no pneumothorax apparent. CARDIOVASCULAR: No aortic atherosclerotic calcification present. Normal cardiac size. No pulmonary vascular congestion. OSSEOUS STRUCTURES: No significant abnormalities. VISUALIZED UPPER ABDOMEN: Normal. OTHER FINDINGS: None. IMPRESSION: No active disease.
--- NOTE | 2018-09-09 19:11 | CARD ---
APPROVED REPORT Date of service: 09/09/2018 EKG Measurement Heart [id number] <Conclusion> Normal sinus rhythm Normal ECG
== END 2018-09-09 11:03 | disposition home or self-care (01) ==
LOC: ED 07:22
DX: R10.9 Unspecified abdominal pain (principal); E03.9 Hypothyroidism, unspecified; I10 Essential (primary) hypertension; Z87.891 Personal history of nicotine dependence
CPT/HCPCS: 71045; 74177; 80053; 81003; 83690; 83735; 84484; 85025; 93005; 96361; 96374; 99285; J2405; J7030; Q9967

== ENCOUNTER 2018-10-19 08:17 | Inpatient (IN) | payer BC ==
[2018-10-19 08:17] VITALS: BMI 27.3
--- NOTE | 2018-10-19 08:51 | ED PDOC ---
Arrival/HPI - General Chief Complaint: Psychiatric Evaluation Time Seen by Provider: 10/19/18 08:30 Historian: Patient - History of Present Illness Narrative History of Present Illness (Text): 10/19/18 08:30 Naren Plaza is a 53 year old male, with a past medical history of anxiety and depression, who presents to the emergency department complaining of anxiety. Patient states he feels "anxious with bad thoughts". Pt appreciates history of previous psychiatric admissions. Denies suicidal plan or homicidal ideation. Pt also reports chronic stomach pain; was worked up by Dr. Loera (GI). Patient denies any somatic complaints; denies fevers, chills, headache, dizziness, chest pain, shortness of breath, abdominal pain, nausea, vomiting, diarrhea, dysuria, hematuria, back pain, neck pain, or any other complaints. Symptom Onset: Sudden Symptom Course: Unchanged Activities at Onset: Light Context: Home Past Medical History - Provider Review Nursing Documentation Reviewed: Yes - Past History Past History: No Previous - Infectious Disease Hx of Infectious Diseases: None - Tetanus Immunization Tetanus Immunization: Unknown - Cardiac Hx Cardiac Disorders: Yes Hx Cardiac Arrhythmia: Yes Hx Hypertension: Yes Hx Mitral Valve Prolapse: Yes - Pulmonary Hx Respiratory Disorders: Yes Hx Asthma: Yes - Neurological Hx Neurological Disorder: Yes Hx Dizziness: Yes (SYNCOPE 7-6-18) - HEENT Hx HEENT Disorder: Yes - Renal Hx Renal Disorder: No - Endocrine/Metabolic Hx Endocrine Disorders: Yes Hx Hypothyroidism: Yes - Hematological/Oncological Hx Blood Disorders: No - Integumentary Hx Dermatological Disorder: No - Musculoskeletal/Rheumatological Hx Musculoskeletal Disorders: Yes (RIB FX LEFT) Hx Falls: Yes Hx Fractures: Yes (left rib) - Gastrointestinal Hx Gastrointestinal Disorders: Yes Hx Gastroesophageal Reflux: Yes Other/Comment: H. Pylori, IBS, biliary colic, GASTRO PARESIS - Genitourinary/Gynecological Hx Genitourinary Disorders: No - Psychiatric Hx Psychophysiologic Disorder: Yes (INSOMNIA) Hx Anxiety: Yes Hx Depression: Yes Hx Substance Use: No - Past Surgical History Past Surgical History: No Previous - Surgical History Hx Cardiac Catheterization: Yes - Anesthesia Hx Anesthesia: Yes Hx Anesthesia Reactions: No Hx Malignant Hyperthermia: No - Suicidal Assessment Feels Threatened In Home Enviroment: No Family/Social History - Physician Review Nursing Documentation Reviewed: Yes Family/Social History: Unknown Family HX Smoking Status: Former Smoker Hx Alcohol Use: Yes (OCCASIONAL) Hx Substance Use: No Hx Substance Use Treatment: No Allergies/Home Meds Allergies/Adverse Reactions: Allergies aspirin Allergy (Verified 10/19/18 08:29) stomach inflammation stomach inflammation Penicillins Allergy (Verified 10/19/18 08:29) ANAPHYLAXIS Home Medications: Home Meds Medication Instructions Recorded Confirmed Famotidine [Pepcid] 20 mg PO ACD 10/19/18 10/19/18 Omeprazole 40 mg PO DAILY 10/19/18 10/19/18 Review of Systems - Review of Systems Constitutional: absent: Fevers, Other (chills) Respiratory: absent: SOB, Cough, Sputum, Wheezing Cardiovascular: absent: Chest Pain, Palpitations Gastrointestinal: absent: Abdominal Pain, Diarrhea, Nausea, Vomiting Genitourinary Male: absent: Dysuria, Hematuria Musculoskeletal: absent: Back Pain, Neck Pain Neurological: absent: Headache, Dizziness Psychiatric: Anxiety, Depression. absent: Suicidal Ideation, Other (Homicidal ideation) Physical Exam Vital Signs Reviewed: Yes Vital Signs Temp Pulse Resp Pulse Ox 10/19/18 08:24 98 F 92 H 18 99 Temperature: Afebrile Blood Pressure: Normal Pulse: Regular Respiratory Rate: Normal Appearance: Positive for: Non-Toxic, Other (anxious appearing) Pain Distress: None Mental Status: Positive for: Alert and Oriented X 3 - Systems Exam Head: Present: Atraumatic, Normocephalic Pupils: Present: PERRL Extroacular Muscles: Present: EOMI Conjunctiva: Present: Normal Mouth: Present: Moist Mucous Membranes Neck: Present: Normal Range of Motion Respiratory/Chest: Present: Clear to Auscultation, Good Air Exchange. No: Respiratory Distress, Accessory Muscle Use Cardiovascular: Present: Regular Rate and Rhythm, Normal S1, S2. No: Murmurs, Rub, Gallop Abdomen: Present: Normal Bowel Sounds. No: Tenderness, Distention, Peritoneal Signs, Rebound, Guarding Back: Present: Normal Inspection Upper Extremity: Present: Normal Inspection. No: Cyanosis, Edema Lower Extremity: Present: Normal Inspection. No: Edema Neurological: Present: GCS=15, CN II-XII Intact, Speech Normal Skin: Present: Warm, Dry, Normal Color. No: Rashes Psychiatric: Present: Alert, Oriented x 3, Anxious, Depressed Mood. No: Homicidal Ideation Medical Decision Making ED Course and Treatment: 10/19/18 08:30 Impression: Pt is a 53 year old male, with a past medical history of anxiety, depression, and multiple psychiatric admissions, who presents to the emergency department complaining of anxiety. Plan: -- EKG -- Labs -- Urinalysis -- Reassess and disposition Prior Visits: Notes and results from previous visits were reviewed. Progress Notes: 10/19/18 09:44 Cxray negative. EKS shows NSR at 80bpm wtih sinus arrhytjmia. Labs reviewed. A ccepted by psych - RAD Interpretation Radiology Orders: 10/19/18 08:31 CHEST PORTABLE [RAD] Stat - Scribe Statement The provider has reviewed the documentation as recorded by the Scribe Chacorta Valles All medical record entries made by the Scribe were at my direction and personally dictated by me. I have reviewed the chart and agree that the record accurately reflects my personal performance of the history, physical exam, medical decision making, and the department course for this patient. I have also personally directed, reviewed, and agree with the discharge instructions and disposition. Disposition/Present on Arrival - Present on Arrival Any Indicators Present on Arrival: No History of DVT/PE: No History of Uncontrolled Diabetes: No Urinary Catheter: No History of Decub. Ulcer: No History Surgical Site Infection Following: None - Disposition Have Diagnosis and Disposition been Completed?: Yes Diagnosis: Anxiety Disposition: HOSPITALIZED Disposition Time: :44 Patient Plan: Admission Patient Problems: Current Active Problems Problem Status Onset Anxiety Acute Condition: FAIR Forms: RecordSetter (Honduran)
[2018-10-19 08:53] LABS: BASO # 0.02 K/mm3 (0.0-2.0); BASO % 0.3 % (0.0-3.0); EOS # 0.1 (0.0-0.7); EOS % 0.7 % (1.5-5.0); LYMPH # 1.5 (1.2-3.4); LYMPH % 22.4 % (22.0-35.0); MEAN CELL VOLUME 85.5 fl (80.0-105.0); MEAN CORPUSCULAR HEMOGLOBIN 28.6 pg (25.0-35.0); MEAN CORPUSCULAR HGB CONC 33.5 g/dl (31.0-37.0); MEAN PLATELET VOLUME 9.5 fl (7.0-11.0); MONO # 0.6 (0.1-0.6); MONO % 8.5 % (1.0-6.0); RBC 4.89 10^6/uL (3.5-6.1); RED CELL DISTRIBUTION WIDTH 12.4 % (11.5-14.5); WHITE BLOOD COUNT 6.8 10^3/uL (4.5-11.0)
[2018-10-19 09:04] LABS: ALB/GLOB RATIO 1.3 (1.1-1.8); ALBUMIN 4.2 g/dL (3.0-4.8); ALT/SGPT 13 U/L (7-56); AST/SGOT 18 U/L (17-59); BLOOD UREA NITROGEN 12 mg/dL (7-21); CALCIUM 9.2 mg/dL (8.4-10.5); GFR NON-AFRICAN AMERICAN > 60
[2018-10-19 09:06] LABS: ACETAMINOPHEN < 10.0 ug/ml (10.0-20.0); SALICYLATE < 1 mg/dL (2.0-20.0)
[2018-10-19 09:22] LABS: URINE BILIRUBIN NEGATIVE (NEGATIVE); URINE BLOOD NEGATIVE (NEGATIVE); URINE GLUCOSE (UA) NEGATIVE (NEGATIVE); URINE LEUKOCYTE ESTERASE NEGATIVE Leu/uL (NEGATIVE); URINE PROTEIN NEGATIVE mg/dL (<30 mg/dL); URINE UROBILINOGEN 0.2 E.U./dL (<1 E.U./dL)
[2018-10-19 09:23] LABS: URINE APPEARANCE CLEAR (CLEAR); URINE COLOR YELLOW (YELLOW)
--- NOTE | 2018-10-19 09:41 | RAD ---
Date of service: 10/19/2018 HISTORY: psych COMPARISON: Frontal chest radiograph 09/09/2018. TECHNIQUE: 1 view obtained. FINDINGS: LUNGS: No active pulmonary disease. PLEURA: No significant pleural effusion identified, no pneumothorax apparent. CARDIOVASCULAR: No aortic atherosclerotic calcification present. Normal cardiac size. No pulmonary vascular congestion. OSSEOUS STRUCTURES: No significant abnormalities. VISUALIZED UPPER ABDOMEN: Normal. OTHER FINDINGS: None. IMPRESSION: No interval acute cardiopulmonary disease appreciated.
[2018-10-19 09:48] LABS: BARBITURATES, UR NEGATIVE (NEGATIVE); BENZODIAZEPINES, UR POSITIVE (NEGATIVE); OPIATES, UR NEGATIVE (NEGATIVE); PHENCYCLIDINE, UR NEGATIVE (NEGATIVE)
[2018-10-19] MEDS ORDERED: Magnesium Hydroxide Susp 30 ml UD PO PRN (14:30)
[2018-10-19] MEDS ORDERED: Alum-Mag Hydrox-Simethicone Susp (30 mL) PO PRN (14:30)
[2018-10-19 15:06] VITALS: O2SAT 98
--- NOTE | 2018-10-19 16:47 | PCM.BM ---
<YohannesNick - Last Filed: 10/19/18 16:44> Treatment Plan Problems - Problems identified on initial assessmt Anxiety Date Initiated: 10/19/18 Time Initiated: 12:00 Assessment reference: NA Status: Active Priority: 1 Hopelessness/Helplessness Date Initiated: 10/19/18 Time Initiated: 12:00 Assessment reference: NA Status: Active Priority: 2 Feelings of Worthlessness Date Initiated: 10/19/18 Time Initiated: 12:00 Assessment reference: NA Status: Active Priority: 3 Medication Nonadherence Date Initiated: 10/19/18 Time Initiated: 12:00 Assessment reference: NA Status: Active Priority: 4 Altered Sleep Patterns Date Initiated: 10/19/18 Time Initiated: 12:00 Assessment reference: NA Status: Active Priority: 5 Social Isolation Date Initiated: 10/19/18 Time Initiated: 12:00 Assessment reference: NA Status: Active Priority: 6 Ineffective Coping Date Initiated: 10/19/18 Time Initiated: 12:00 Assessment reference: NA Status: Active Priority: 7 Treatment assets and liabiliti Patient Assests: cooperative, educated, resourceful, self-reliant, ADL independent, negotiates basic needs, good past tx response, cognitively intact Patient Liabilities: live alone, financial problems, medical problems - Milieu Protocol Maintain good personal hygiene: daily Encourage regular showers, daily Remind patient to perform daily oral care, every shift Assist patient to perform ADL's Maintain personal safety: every shift Educate patient to report safety concerns to staff, every shift Monitor environment for contraband/sharps Medication safety: Monitor for expected outcome, potential side effects: every shift, Assess barriers to learning: every shift, Assess readiness for medication education: every shift Family Contact Family involvement: Family/SO is involved Family contact: Patient agrees to contact - Goals for Treatment Patient goals for treatment: Less anxiety Discharge/Continuing Care - Education Needs Education Needs: Patient Medication, Patient Diagnosis/Disease Process, Patient Coping Skills, Patient Anger Management skills, Patient Placement options, Patie nt Community resources, Patient Activities of Daily Living, Patient Pain, Patient Nutrition, Patient Uses of Medical Equipment, Patient Health Practices/Safety, Patient Personal Hygiene/Grooming, Patient Aftercare Safety Plan, Patient Other - Discharge Discharge Criteria: Tolerates medication w/o severe side effects <Valeria Flores - Last Filed: 10/20/18 13:28> - Diagnosis (1) Anxiety disorder due to general medical condition with panic attack Status: Acute Interventions: 10/20/18 13:29 Pt will be seen by medical team as needed Medications will be confirmed and resumed Additional consultation by specialists as needed Lab work as needed (CBC, CMP, TSH, free T4, UA, Urine test for females as needed) CXR as needed EKG Physical therapy evaluation as needed Psychoeducation Psychopharmacology/adjustment of medications as needed/ monitoring possible side effects Evaluate pt on daily basis Discussion of importance of being compliant with medications and follow up appointments Suicide and homicide risk assessment and prevention, coping strategies, safety plan Reduction of symptoms Relaxation techniques and breathing exercises Improve functional status Family involvement Cognitive behavioral therapy as outpatient (2) Major depression Status: Acute Interventions: 10/20/18 13:28 Psychoeducation Psychopharmacology/adjustment of medications as needed/ monitoring possible side effects Evaluate pt on daily basis Compliance with medications and follow up appointments Suicide and homicide risk assessment and prevention Relapse prevention Reduction of symptoms Improve functional status Family involvement As outpatient: cognitive behavioral therapy <Chanel Rouse Y - Last Filed: 10/22/18 16:59>
--- NOTE | 2018-10-19 17:44 | CARD ---
APPROVED REPORT Date of service: 10/19/2018 EKG Measurement Heart [id number] <Conclusion> Normal sinus rhythm with sinus arrhythmia Normal ECG
[2018-10-20] MEDS: Pantoprazole 40 mg EC Tab PO SCH (07:00)
[2018-10-20 07:49] LABS: GLUCOSE,FASTING 110 mg/dL (65-110); HDL CHOLESTEROL 38 mg/dL (29-60)
[2018-10-20 08:00] LABS: LDL CHOLESTEROL 119 mg/dL (0-129)
[2018-10-20] MEDS: POLYETHYLENE GLYCOL 3350 17 GM/Dose PACKET PO SCH (08:45)
[2018-10-20] MEDS: Lidocaine 5% Patch TD SCH (08:46)
--- NOTE | 2018-10-20 13:56 | PCM.PSYCH ---
Initial Psychiatric Evaluation - Initial Psychiatric Evaluation Type of Admission: Voluntary Legal Status: Capacity Chief Complaint (in patient's own words): "Dr. Shaw, I did not feel very well, I am on disability right now, I could not function, I was praying to God to take me because I was feeling hopeless" Patient's Reaction to Hospitalization: Patient was admitted for evaluation stabilization for depressive symptoms, anxiety, insomnia, inability to function, passive wish to be . History of Present Illness and Precipitating Events: shortly, pt is a 53 year old male, with reported h/o anxiety and depression, at least 2 voluntary psychiatric admissions to this facility 5B - 11/19/17 and 02/16/17, patient under care of Dr. Gómez Diggs - Psychiatrist for the past 2 years. Patient also has multiple medical issues including but not limited to gastritis, esophagitis, irritable bowel syndrome, came to the hospital looking for help for depressive symptoms, uncontrolled anxiety, self-injurious behavior such as slapping himself, patient also was not able to function, currently on disability from psychiatrist. Patient requires further evaluation and stabilization and medication adjustment. Patient is very well-known to this unit from 2 previous admissions, patient was seen today at the treatment team meeting, patient presented with fair personal hygiene, seems lost a lot of weight, patient presented to be anxious, multiple somatic complaints, good ADLs. Patient was fixated on multiple GI problems, patient said he had endoscopy which showed erosions on his esophagus and ulcers in his stomach. Since July-August of this year pt was not sleeping, was "stressed out and I was feeling very anxiou s", pt reported medications stopped working, pt was referred by his psychiatrist to see GI specialist and pt had sleep study at [facility] on october 08, but there is no result back yet. pt reports that he is currently on disability "I should feel better, but I am not, I am home, constantly anxious, worried about my health, finances", patient reported feeling hopeless, helpless, worthless, guilty patient said that he was feeling "my mind is racing", patient reported that he has severe insomnia, patient was not sleeping "for days." As per PES report patient was slapping himself during assessment. pt was also saying "Why is there a reason to keep going?" "I just want my soul to abandon my body." pt denied psychotic symptoms, did not present to be paranoid or responding to internal stimuli. Patient denied smoking, denies alcohol consumption, denied illicit drug use. Past psychiatric h/o: 2x - Vol. Inpt. - [facility] - 11/19/17 and 02/16/17 Dr. Gómez Diggs - Psychiatrist - Outpt. Med. Management - Past 2 years pt said that he did not like remeron which was prescribed to him in the past, "I was feeling very weak", pt reported that he did not tolerate seroquel well, prozac was not helpful. [facility] [phone] Xanax 1mg 3x a day Self Reported Ambien 10mg 1x a day Self Reported Buspar 10mg 1 tab 2x aday - Dr. Loera - Filled 10/13/18 medical h/o:see above. Family history: Denied Patient denied being abused 10/19/18 08:40 10/19/18 08:40 Lab Results 10/20/18 07:15: TSH 3rd Generation 2.08 10/20/18 07:15: Fasting Glucose 110, Triglycerides 113, Cholesterol 185, LDL Cholesterol Direct 119, HDL Cholesterol 38 10/19/18 09:10: Urine Opiates Screen Negative, Urine Methadone Screen Negative, Ur Barbiturates Screen Negative, Ur Phencyclidine Scrn Negative, Ur Amphetamines Screen Negative, U Benzodiazepines Scrn Positive H, U Oth Cocaine Metabols Negative, U Cannabinoids Screen Negative 10/19/18 09:10: Urine Color Yellow, Urine Appearance Clear, Urine pH 6.0, Ur Specific [place] 1.010, Urine Protein Negative, Urine Glucose (UA) Negative, Urine Ketones Negative, Urine Blood Negative, Urine Nitrate Negative, Urine Bilirubin Negative, Urine Urobilinogen 0.2, Ur Leukocyte Esterase Negative 10/19/18 08:40: Alcohol, Quantitative < 10 10/19/18 08:40: Salicylates < 1 L, Acetaminophen < 10.0 L 10/19/18 08:40: Sodium 137, Potassium 4.3, Chloride 102, Carbon Dioxide 25, Anion Gap 15, BUN 12, Creatinine 0.9, Est GFR ( Amer) > 60, Est GFR (Non- Af Amer) > 60, Random Glucose 122 H, Calcium 9.2, Magnesium 2.2, Total Bilirubin 0.3, AST 18, ALT 13, Alkaline Phosphatase 28 L, Total Protein 7.6, Albumin 4.2, Globulin 3.3, Albumin/Globulin Ratio 1.3 10/19/18 08:40: WBC 6.8, RBC 4.89, Hgb 14.0, Hct 41.8 L, MCV 85.5, MCH 28.6, MCHC 33.5, RDW 12.4, Plt Count 250, MPV 9.5, Neut % (Auto) 68.1 H, Lymph % (Auto) 22.4, [place] % (Auto) 8.5 H, Eos % (Auto) 0.7 L, Baso % (Auto) 0.3, Lymph # (Auto) 1.5, [place] # (Auto) 0.6, Eos # (Auto) 0.1, Baso # (Auto) 0.02, Absolute Neuts (auto) 4.63 Vital Signs Temp Pulse Resp BP Pulse Ox 10/20/18 08:44 56 L 112/79 10/20/18 07:15 97.7 F 56 L 20 112/79 10/19/18 16:00 74 107/69 10/19/18 15:16 76 132/98 H 10/19/18 11:20 97.9 F 76 18 132/98 H 98 10/19/18 10:45 78 18 121/76 99 10/19/18 09:59 86 18 123/75 100 10/19/18 08:24 98 F 92 H 18 99 The patient failed the outpatient lower level of care: Yes Current Medications: Active Medications Generic Name Dose Route Start Last Admin Trade Name Freq PRN Reason Stop Dose Admin Acetaminophen 650 mg 10/19/18 14:30 10/19/18 15:17 Tylenol 325mg Tab PO 650 mg Q6H PRN Administration Pain, moderate (4-7) Al Hydrox/Mg Hydrox/Simethicone 30 ml 10/19/18 14:30 Maalox Plus 30 Ml PO DAILY PRN Indigestion / Heartburn Alprazolam 1 mg 10/19/18 14:31 10/19/18 15:16 Xanax PO 1 mg TID PRN Administration Anxiety Protocol Amlodipine Besylate 5 mg 10/19/18 14:45 10/19/18 15:16 Norvasc PO 5 mg DAILY LILIANE Administration Docusate Sodium 100 mg 10/20/18 08:00 Colace PO TID LILIANE Famotidine 40 mg 10/20/18 22:00 Pepcid PO HS LILIANE Lidocaine 2 ea 10/20/18 08:00 Lidoderm TD DAILY LILIANE Lorazepam 2 mg 10/19/18 14:34 Ativan IM Q6H PRN Agitation/Paranoia/Sev.Anxiety Protocol Magnesium Hydroxide 30 ml 10/19/18 14:30 Milk Of Magnesia PO DAILY PRN Constipation Pantoprazole Sodium 40 mg 10/20/18 07:30 10/20/18 07:00 Protonix Ec Tab PO 40 mg ACB LILIANE Administration Polyethylene Glycol 17 gm 10/20/18 08:00 Miralax PO DAILY LILIANE Trazodone HCl 50 mg 10/19/18 14:37 10/20/18 02:45 Desyrel PO 50 mg HS PRN Administration Insomnia Ziprasidone 20 mg 10/19/18 14:51 10/19/18 15:17 Geodon Cap PO 20 mg Q6H PRN Administration Agitation Protocol Ziprasidone 20 mg 10/19/18 14:53 Geodon Inj IM Q6H PRN Sev.Agitation/Paranoia/Sev.Anx Protocol Zolpidem Tartrate 10 mg 10/19/18 14:35 10/19/18 21:35 Ambien PO 10 mg HS PRN Administration Insomnia Protocol Present on Admission - Present on Admission Any Indicators Present on Admission: No History of DVT/PE: No History of Uncontrolled Diabetes: No Urinary Catheter: No Decubitus Ulcer Present: No Review of Systems - Review of Systems Systems not reviewed;Unavailable: Acuity of Condition - Constitutional Constitutional: As Per HPI - EENT Eyes: As Per HPI Ears: As Per HPI Nose/Mouth/Throat: As Per HPI - Cardiovascular Cardiovascular: As Per HPI - Respiratory Respiratory: As Per HPI - Gastrointestinal Gastrointestinal: As Per HPI - Genitourinary Genitourinary: As Per HPI - Reproductive: Male Reproductive:Male: As Per HPI - Musculoskeletal Musculoskeletal: As Per HPI - Integumentary Integumentary: As Per HPI - Neurological Neurological: As Per HPI - Psychiatric Psychiatric: As Per HPI - Endocrine Endocrine: As Per HPI - Hematologic/Lymphatic Hematologic: As Per HPI Past Patient History - Past Psychiatric History Previous Treatment History: Inpatient Prior Professional Help: See HPI Prior Psychiatric Treatment: See HPI At what hospital: See HPI Duration: See HPI Nature of Treatment: See HPI Explanation of prior treatment: See HPI - PSYCHIATRIC Hx Anxiety: Yes Hx Bipolar Disorder: Yes Hx Depression: Yes Hx Substance Use: No - Infectious Disease Hx of Infectious Diseases: None - Tetanus Immunizations Tetanus Immunization: Unknown - CARDIAC Hx Cardiac Disorders: Yes Hx Cardia Arrhythmia: Yes Hx Hypertension: Yes Hx Mitral Valve Prolapse: Yes - PULMONARY Hx Respiratory Disorders: Yes Hx Asthma: Yes - NEUROLOGICAL Hx Neurological Disorder: Yes Hx Dizziness: Yes (SYNCOPE 11-27-17) - HEENT Hx HEENT Problems: Yes - RENAL Hx Chronic Kidney Disease: No - ENDOCRINE/METABOLIC Hx Endocrine Disorders: Yes Hx Hypothyroidism: Yes - HEMATOLOGICAL/ONCOLOGICAL Hx Blood Disorders: No - INTEGUMENTARY Hx Dermatological Problems: No - MUSCULOSKELETAL/RHEUMATOLOGICAL Hx Musculoskeletal Disorders: Yes (RIB FX LEFT) Hx Falls: Yes Hx Fractures: Yes (left rib) - GASTROINTESTINAL Hx Gastrointestinal Disorders: Yes Hx Gastroesophageal Reflux: Yes Other/Comment: H. Pylori, IBS, biliary colic, GASTRO PARESIS - GENITOURINARY/GYNECOLOGICAL Hx Genitourinary Disorders: No - SURGICAL HISTORY Hx Cardiac Catheterization: Yes - ANESTHESIA Hx Anesthesia: Yes Hx Anesthesia Reactions: No Hx Malignant Hyperthermia: No - Medical/Surgical History Reviewed & confirmed: by nh Meds Allergies/Adverse Reactions: Allergies Allergy/AdvReac Type Severity Reaction Status Date / Time aspirin Allergy stomach Verified 10/19/18 15:07 inflammation Penicillins Allergy ANAPHYLAXIS Verified 10/19/18 15:07 Mental Status Examination - Personal Presentation Personal Presentation: Looks older than stated age - Affect Affect: Constricted (And anxious), Flat - Motor Activity Motor Activity: Calm - Reliability in Providing Information Reliability in Providing Information: Fair - Speech Speech: Other (Overproductive) - Mood Mood: Depressed, Anxious - Formal Thought Process Formal Thought Process: No Impairment - Obsessions/Compulsions Obsessions: None Compulsions: None - Cognitive Functions Orientation: Person, Place Sensorium: Alert Attention/Concentration: Easily distracted Abstract Thinking: Marshall Estimate of Intelligence: Average Judgement: Intact, as evidence by: Insight regarding need for hospitalization - Risk Risk: Diminished functioning - Strength & Assets Inventory Strength & Assets Inventory: Employment history, Skills, Cooperative, Other (No psychosis) - Limitations Limitations: Other (Multiple somatic complaints, lives alone) Psychiatric Physical Exam - Physical Exam Reviewed and confirmed: Emergency Department Physical Exam Results - Vital Signs Recent Vital Signs: Last Vital Signs Temp 97.7 F 10/20/18 07:15 Pulse 56 L 10/20/18 07:15 Resp 20 10/20/18 07:15 BP 112/79 10/20/18 07:15 Pulse Ox 98 10/19/18 11:20 - Labs Result Diagrams: 10/19/18 08:40 10/19/18 08:40 Labs: Laboratory Results - last 24 hr 10/19/18 10/19/18 10/19/18 08:40 08:40 08:40 WBC 6.8 RBC 4.89 Hgb 14.0 Hct 41.8 L MCV 85.5 MCH 28.6 MCHC 33.5 RDW 12.4 Plt Count 250 MPV 9.5 Neut % (Auto) 68.1 H Lymph % (Auto) 22.4 [place] % (Auto) 8.5 H Eos % (Auto) 0.7 L Baso % (Auto) 0.3 Lymph # (Auto) 1.5 [place] # (Auto) 0.6 Eos # (Auto) 0.1 Baso # (Auto) 0.02 Absolute Neuts (auto) 4.63 Sodium 137 Potassium 4.3 Chloride 102 Carbon Dioxide 25 Anion Gap 15 BUN 12 Creatinine 0.9 Est GFR ( Amer) > 60 Est GFR (Non-Af Amer) > 60 Random Glucose 122 H Fasting Glucose Calcium 9.2 Magnesium 2.2 Total Bilirubin 0.3 AST 18 ALT 13 Alkaline Phosphatase 28 L Total Protein 7.6 Albumin 4.2 Globulin 3.3 Albumin/Globulin Ratio 1.3 Triglycerides Cholesterol LDL Cholesterol Direct HDL Cholesterol TSH 3rd Generation Urine Color Urine Appearance Urine pH Ur Specific [place] Urine Protein Urine Glucose (UA) Urine Ketones Urine Blood Urine Nitrate Urine Bilirubin Urine Urobilinogen Ur Leukocyte Esterase Salicylates < 1 L Urine Opiates Screen Urine Methadone Screen Acetaminophen < 10.0 L Ur Barbiturates Screen Ur Phencyclidine Scrn Ur Amphetamines Screen U Benzodiazepines Scrn U Oth Cocaine Metabols U Cannabinoids Screen Alcohol, Quantitative 10/19/18 10/19/18 10/19/18 08:40 09:10 09:10 WBC RBC Hgb Hct MCV MCH MCHC RDW Plt Count MPV Neut % (Auto) Lymph % (Auto) [place] % (Auto) Eos % (Auto) Baso % (Auto) Lymph # (Auto) [place] # (Auto) Eos # (Auto) Baso # (Auto) Absolute Neuts (auto) Sodium Potassium Chloride Carbon Dioxide Anion Gap BUN Creatinine Est GFR ( Amer) Est GFR (Non-Af Amer) Random Glucose Fasting Glucose Calcium Magnesium Total Bilirubin AST ALT Alkaline Phosphatase Total Protein Albumin Globulin Albumin/Globulin Ratio Triglycerides Cholesterol LDL Cholesterol Direct HDL Cholesterol TSH 3rd Generation Urine Color Yellow Urine Appearance Clear Urine pH 6.0 Ur Specific [place] 1.010 Urine Protein Negative Urine Glucose (UA) Negative Urine Ketones Negative Urine Blood Negative Urine Nitrate Negative Urine Bilirubin Negative Urine Urobilinogen 0.2 Ur Leukocyte Esterase Negative Salicylates Urine Opiates Screen Negative Urine Methadone Screen Negative Acetaminophen Ur Barbiturates Screen Negative Ur Phencyclidine Scrn Negative Ur Amphetamines Screen Negative U Benzodiazepines Scrn Positive H U Oth Cocaine Metabols Negative U Cannabinoids Screen Negative Alcohol, Quantitative < 10 10/20/18 10/20/18 07:15 07:15 WBC RBC Hgb Hct MCV MCH MCHC RDW Plt Count MPV Neut % (Auto) Lymph % (Auto) [place] % (Auto) Eos % (Auto) Baso % (Auto) Lymph # (Auto) [place] # (Auto) Eos # (Auto) Baso # (Auto) Absolute Neuts (auto) Sodium Potassium Chloride Carbon Dioxide Anion Gap BUN Creatinine Est GFR ( Amer) Est GFR (Non-Af Amer) Random Glucose Fasting Glucose 110 Calcium Magnesium Total Bilirubin AST ALT Alkaline Phosphatase Total Protein Albumin Globulin Albumin/Globulin Ratio Triglycerides 113 Cholesterol 185 LDL Cholesterol Direct 119 HDL Cholesterol 38 TSH 3rd Generation 2.08 Urine Color Urine Appearance Urine pH Ur Specific [place] Urine Protein Urine Glucose (UA) Urine Ketones Urine Blood Urine Nitrate Urine Bilirubin Urine Urobilinogen Ur Leukocyte Esterase Salicylates Urine Opiates Screen Urine Methadone Screen Acetaminophen Ur Barbiturates Screen Ur Phencyclidine Scrn Ur Amphetamines Screen U Benzodiazepines Scrn U Oth Cocaine Metabols U Cannabinoids Screen Alcohol, Quantitative - EKG Data EKG Interpreted by: ER Physician DSM Plan - DSM 5 DSM 5 Diagnosis: Major depressive disorder, severe, no psychosis r/o mood disorder due to a GMC r/o anxiety due to a GMC - Recommended/Plan of Treatment Treatment Recommendations and Plan of Treatment: Milieu/structure/supportive therapy SW consultation for discharge plan and social issues Med management Trazodone 100mg at the nighttime for depression and insomnia Xanax only as needed Klonopin 1 mg 3 times a day for anxiety as scheduled Abilify 2.5 mg for mood stabilization and as adjunct for MDD ECT was discussed medical evaluation GI f/u Family involvement Follow up on labs Will monitor closely Pt was educated about risk/benefits and alternatives of medications, coping strategies (safety plan, suicide prevention), relapse prevention, importance of follow up with psychiatrist and therapist, stay away from drugs/alcohol/smoking Projected ELOS: 7 days Prognosis: Fair Discharge Plan and Discharge Criteria: when patient will pose no imminent danger to self or others - Tobacco Cessation Tobacco Use Status for the last 30 days: Non User Tobacco Use Treatment Practical Counseling Provided: No Tobacco Use Treatment FDA-Approved Cessation Medication Provided: No Reason for not providing: Other (pt denied smoking) - Alcohol or Substance Abuse Does the patient have an Alcohol or Substance Abuse Disorder: No Initial Psych Certification - Initial Certification I certify that the inpatient psychiatric facility admission was medically necessary for either: Treatment which could reasonbly be expected to improve pt's condition I estimate of hospitalization is necessary for proper treatment of the patient: 7 Unit of Time: Days My plans for post-hospital care for this patient are: DTP f/u with .
--- NOTE | 2018-10-20 19:45 | CON ---
DATE: 10/19/2018 HISTORY OF PRESENT ILLNESS: A 53-year-old male, who came in psychiatry floor because of depression. I was cost consultant because of medical problems and the patient known to me for years. This patient has not been feeling well, seen Dr. Diggs, Psychiatry in [place] as outpatient, has been off work for a couple of weeks, having upper and lower endoscopy. The patient has gastritis; seen by Dr. Loera and has been feeling down, very anxious, have insomnia, chronic anxiety with depression and came in for evaluation because he is not feeling mentally stable and feels very anxious and depressed. There are no suicidal thoughts, but he feels down, feels hosted, depressed, not good mood, not eating well, not feeling well, not interested in anything, having sleeping problems, have no interest in anything, and came in for evaluation on psych floor. PAST MEDICAL HISTORY: Has gastritis, chronic back pain, has hypercholesterolemia, chronic insomnia, and depression. HOME MEDICATIONS: Ambien, omeprazole, Lidoderm patch, Pepcid, and Xanax. FAMILY HISTORY: Noncontributory. SOCIAL HISTORY: Former smoker, but he smokes cigar occasionally. No alcohol. No other drugs abuse. REVIEW OF SYSTEMS: He also complains of back pain, depression, insomnia, anxiety, indigestion, constipation, otherwise negative. No suicidal thoughts. PHYSICAL EXAMINATION: GENERAL: When I seen the patient on psych floor, he is walking. His facial expression, no happy and he seems helpless and has difficult sleeping. Complained of chronic back pain as usual. VITAL SIGNS: Temperature 97.9, heart rate 76, blood pressure 132/98, respirations 18, and saturation 98%. HEAD AND NECK: Normal. No JVD. No thyromegaly. CHEST: Clear bilaterally. CARDIAC: First sound and second sound normal. ABDOMEN: Soft and mild epigastric tenderness. EXTREMITIES: No edema. NEUROLOGIC: Normal. Lumbosacral area; there is mild tenderness in the lumbosacral area region. LABORATORY DATA: He came in psych floor. Lab shows white count 6.8, hemoglobin 14, hematocrit 41.8, and platelets 215. Chemistry; sodium 137, potassium 4.3, chloride 102, bicarb 25, BUN 12, creatinine 0.9, and blood sugar 122. Liver function test is normal. Total protein 7.6. Also, the patient had toxicology screen was negative for any , Tylenol; is only positive for benzodiazepines. No alcohol. No other drugs. No cocaine. No amphetamine. No cannabinoids. No barbiturates. No methadone or opiates. The patient also had a urine test which was normal. IMPRESSION AND PLAN: 1. Chronic anxiety and depression. He will keep thinking about the same thing between anxiety, insomnia, and feeling depressed. The patient will be seen by Dr. Shaw, will be treated. He is on Geodon for treating his calming down with the thought process, and he is on Ativan, Ambien, and Xanax. We will continue that and follow up with Psychiatry on that. He seems still feel very anxious. 2. Gastritis, chronic. We will give him Protonix plus Pepcid. 3. Chronic constipation. MiraLax and Colace. 4. Chronic back pain. We will resume Lidoderm patches to a day. We will continue current therapy for his hypertension. The patient will resume Norvasc 5 mg daily. Continue current therapy. Follow up clinically. Keaton Muse MD
[2018-10-21] MEDS: Pantoprazole 40 mg EC Tab PO SCH (07:13)
[2018-10-21] MEDS: POLYETHYLENE GLYCOL 3350 17 GM/Dose PACKET PO SCH (08:12)
[2018-10-21] MEDS: Lidocaine 5% Patch TD SCH (08:14)
--- NOTE | 2018-10-21 12:46 | PN ---
DATE: 10/20/2018 SUBJECTIVE: The patient is on psych floor. Seems very anxious. Moving around. Not able to sleep. Still have racing thoughts which seems to respond to Geodon. He is thinking about everything in a nonspecific manner. The patient is otherwise physically stable. He received a Lidoderm patch. He has got all his meds. Moves his bowels a little bit, but no abdominal pain at this time. PHYSICAL EXAMINATION: VITAL SIGNS: Temperature 97.7, heart rate 56, blood pressure 112/79, respirations 20. HEAD AND NECK: Normal. No JVD. No thyromegaly. CHEST: Clear bilaterally. CARDIAC: First sound and second sound normal. No murmur, rub, or gallop. ABDOMEN: Soft, nontender. EXTREMITIES: No edema. NEUROLOGICAL: Normal. IMPRESSION AND PLAN: 1. Chronic gastritis. Continue Protonix and Pepcid. 2. Chronic insomnia, chronic anxiety and depression with decreased functionality at work. We will continue antipsychotic therapy plus chronic benzodiazepine therapy. He will follow up with the Psychiatry consultation, Dr. Shaw. Continue trazodone 100 mg for depression and to help sleep, Xanax for chronic anxiety. Also Abilify 2.5 mg for mood stabilization and helping with his thoughts. I noted also ECG is discussed because of the nature of recurrence and persistent symptoms affecting his job and sleep and we will discuss further with Dr. Shaw. Continue current psychotherapy. Continue current therapy for depression. We will follow up with the other specialists. The patient is not drinking at this time and not using any drugs. 3. Chronic back pain, gastritis, irritable bowel syndrome. Continue current medications, Abilify 2.5 mg daily, Ambien 10 mg at bedtime, Ativan 2 mg IM every 6 hours p.r.n., Colace 100 mg b.i.d., trazodone 100 at bedtime, Dulcolax 5 mg b.i.d. p.r.n., Geodon 20 mg every 6 hours p.r.n. and 20 mg IM every 6 hour p.r.n., Klonopin 1 mg b.i.d. and 2 mg at bedtime, Lidoderm patch, Maalox, milk of magnesia, MiraLax, Norvasc 5 mg daily for hypertension, Pepcid 40 mg, Protonix 40, Xanax 1 mg t.i.d. p.r.n. Continue current therapy. Continue Norvasc for underlying hypertension. The patient otherwise stable. Keaton Muse MD
--- NOTE | 2018-10-21 13:20 | PCM.PYCHPN ---
Psychiatric Progress Note - Psychiatric Progress Note Patient seen today, length of contact: 30 Patient Chief Complaint: "Dr. Shaw, I did not sleep at all..." Problems Identified/Issues Discussed: Treatment plan, medications, risk/benefits/alternatives of the medications, safety plan, aftercare plan. Medical Problems: See HPI Diagnostic Results: 10/19/18 08:40 10/19/18 08:40 Lab Results 10/20/18 07:15: RPR Nonreactive 10/20/18 07:15: TSH 3rd Generation 2.08 10/20/18 07:15: Fasting Glucose 110, Triglycerides 113, Cholesterol 185, LDL Cholesterol Direct 119, HDL Cholesterol 38 10/19/18 09:10: Urine Opiates Screen Negative, Urine Methadone Screen Negative, Ur Barbiturates Screen Negative, Ur Phencyclidine Scrn Negative, Ur Amphetamines Screen Negative, U Benzodiazepines Scrn Positive H, U Oth Cocaine Metabols Neg ative, U Cannabinoids Screen Negative 10/19/18 09:10: Urine Color Yellow, Urine Appearance Clear, Urine pH 6.0, Ur Specific [place] 1.010, Urine Protein Negative, Urine Glucose (UA) Negative, Urine Ketones Negative, Urine Blood Negative, Urine Nitrate Negative, Urine Bilirubin Negative, Urine Urobilinogen 0.2, Ur Leukocyte Esterase Negative 10/19/18 08:40: Alcohol, Quantitative < 10 10/19/18 08:40: Salicylates < 1 L, Acetaminophen < 10.0 L 10/19/18 08:40: Sodium 137, Potassium 4.3, Chloride 102, Carbon Dioxide 25, Anion Gap 15, BUN 12, Creatinine 0.9, Est GFR ( Amer) > 60, Est GFR (Non- Af Amer) > 60, Random Glucose 122 H, Calcium 9.2, Magnesium 2.2, Total Bilirubin 0.3, AST 18, ALT 13, Alkaline Phosphatase 28 L, Total Protein 7.6, Albumin 4.2, Globulin 3.3, Albumin/Globulin Ratio 1.3 10/19/18 08:40: WBC 6.8, RBC 4.89, Hgb 14.0, Hct 41.8 L, MCV 85.5, MCH 28.6, MCHC 33.5, RDW 12.4, Plt Count 250, MPV 9.5, Neut % (Auto) 68.1 H, Lymph % (Auto) 22.4, [place] % (Auto) 8.5 H, Eos % (Auto) 0.7 L, Baso % (Auto) 0.3, Lymph # (Auto) 1.5, [place] # (Auto) 0.6, Eos # (Auto) 0.1, Baso # (Auto) 0.02, Absolute Neuts (auto) 4.63 Vital Signs Temp Pulse Resp BP Pulse Ox 10/21/18 07:20 97.6 F 76 128/81 10/21/18 07:18 97.6 F 76 85 H 128/81 10/20/18 15:00 59 L 18 123/80 10/20/18 08:44 56 L 112/79 10/20/18 07:15 97.7 F 56 L 20 112/79 10/19/18 16:00 74 107/69 10/19/18 15:16 76 132/98 H 10/19/18 11:20 97.9 F 76 18 132/98 H 98 10/19/18 10:45 78 18 121/76 99 10/19/18 09:59 86 18 123/75 100 10/19/18 08:24 98 F 92 H 18 99 DSM 5 Symptoms Update: shortly, pt is a 53 year old male, with reported h/o anxiety and depression, at least 2 voluntary psychiatric admissions to this facility 5B - 11/19/17 and 02/16/17, patient under care of Dr. Gómez Diggs - Psychiatrist for the past 2 ye ars. Patient also has multiple medical issues including but not limited to gastritis, esophagitis, irritable bowel syndrome, came to the hospital looking for help for depressive symptoms, uncontrolled anxiety, self-injurious behavior such as slapping himself, patient also was not able to function, currently on disability from psychiatrist. Patient requires further evaluation and stabilization and medication adjustment. Patient was seen next to the nursing station, patient has multiple somatic complaints, patient complaining of insomnia as well, patient was preoccupied with his feelings of anxiety, depression, inability to function. Patient appears genuinely depressed and anxious. Patient agreed to increase the dose of trazodone 150 mg at the nighttime, patient also wants to increase the dose of Abilify to 5 mg a day, patient reported that he feels "okay" on Klonopin. Patient still feels hopeless and helpless, passive wish to be . As per staff patient is visible in the unit, NAD, anxious. No agitation or aggression. Patient tolerates medications well, no side effects observed or reported, aims 0, no EPS. DSM 5 Diagnosis: Major depressive disorder, severe, no psychosis r/o mood disorder due to a [facility] r/o anxiety due to [place] [facility] [place] Medication Change: Yes (Trazodone increased, Abilify increased) Medical Record Reviewed: Yes Consults ordered or reviewed: Medical consult appreciated, GI consult appreciated. Mental Status Examination - Cognitive Function Orientation: Person, Place Memory: Intact Attention: Poor Concentration: Poor Association: WNL Fund of Knowledge: WNL - Mood Mood: Depressed, Anxious - Affect Affect: Constricted (And anxious), Flat - Formal Thought Process Formal Thought Process: No Impairment - Suicidal Ideation Suicidal Ideation: No Plan: Passive wish to be - Homicidal Ideation Homicidal Ideation: No Goal/Treatment Plan - Goal/Treatment Plan Need for Continued Stay: Remain at risks for inpatient hospitalization, Severe depression anxiety, Discharge may exacerbated symptoms, Severe functional impairment Progress Toward Problem(s) and Goals/Treatment Plan: Milieu/structure/supportive therapy SW consultation for discharge plan and social issues Med management Trazodone 150mg at the nighttime for depression and insomnia Xanax only as needed Klonopin 1 mg 3 times a day for anxiety as scheduled Abilify 5 mg for mood stabilization and as adjunct for MDD ECT was discussed medical evaluation GI f/u Family involvement Follow up on labs Will monitor closely Pt was educated about risk/benefits and alternatives of medications, coping strategies (safety plan, suicide prevention), relapse prevention, importance of follow up with psychiatrist and therapist, stay away from drugs/alcohol/smoking Estimated Date of D/C: 10/29/18
[2018-10-21] MEDS: Bisacodyl 5mg EC Tab PO PRN (13:40)
--- NOTE | 2018-10-21 22:44 | CON ---
DATE: 10/21/2018 REASON FOR DICTATION: Cardiac evaluation, multiple risk factors for coronary artery disease as suggested by deck scaler. BRIEF CLINICAL HISTORY: This is a 53-year-old male, ex-smoker with history of multiple gastric erosions, hiatal hernia, duodenitis, esophagitis, recently seen by Dr. Juni Loera and suggested to have cardiac evaluation. The patient admitted to the psych floor for the depression. Denies any chest pain; denies any shortness of breath, but complained of epigastric pain with the patient had endoscopy and finding as above. PAST MEDICAL HISTORY: Significant for gastritis, esophagitis, multiple gastric erosions and hiatal hernia, history of chronic insomnia, depression, and hyperlipidemia. CURRENT MEDICATIONS AT HOME: Ambien, omeprazole, Lidoderm patch, Pepcid, and Xanax. FAMILY HISTORY: Noncontributory. SOCIAL HISTORY: Ex-smoker. Denies any history of alcohol abuse. PREVIOUS CARDIAC WORKUP FOLLOWS: The patient had a cardiac catheterization on 05/09/2013 unremarkable coronary arteries with normal LV function, dated 05/09/[address] Kenny Granado. Following that, the patient had echocardiography done on 06/17/2017 that revealed normal LV function, ejection fraction 65%, trace aortic regurgitation, no evidence of mitral valve prolapse, though the patient says, but by echo dated 06/07/2017, no evidence of mitral valve prolapse noted. The patient had a stress test on 06/17/2017 that shows ejection fraction 56%, normal myocardial perfusion study in comparison to last study dated 07/2015 no change noted. PAST SURGICAL HISTORY: Significant for cardiac catheterization as mentioned 05/09/[address] Granado with no significant coronary artery disease, history of H. pylori, history of recent endoscopy, and colonoscopy. Colonoscopy showed redundant colon and endoscopy showed gastric erosion and esophagitis. REVIEW OF SYSTEMS: As per HPI. PHYSICAL EXAMINATION: VITAL SIGNS: As follows; temperature afebrile, heart rate 76, and blood pressure 128/81. HEENT: PERRLA. Extraocular muscles intact. NECK: Supple. No carotid bruits or thyromegaly. CHEST: Clear to auscultation. HEART: S1 and S2 regular. ABDOMEN: Soft. EXTREMITIES: Clubbing and cyanosis negative. LABORATORY DATA: Blood workup as follows; WBC 6.8, hemoglobin 14.8, hematocrit 41.8, and platelet count 250. Chemistry shows sodium 130, potassium 4.3, chloride 102, carbon dioxide 25, anion gap of 12, BUN 15, and creatinine 0.9. Total cholesterol 185, HDL 130, LDL 119, and TSH 2.08. EKG shows normal sinus, no acute ST-T changes noted. IMPRESSION AND PLAN: A 53-year-old male with history of ex-smoker, history of psychiatric disorder, history of Helicobacter pylori, hiatal hernia, and gastroesophagitis. History of cardiac catheterization in 2012 that revealed unremarkable coronary arteries done by Dr. Granado and then the patient had a recent stress test on 06/17/2017 with ejection fraction 56%, normal myocardial perfusion study in comparison to last study on 07/26/2015, no change. The patient had echocardiography on 06/07/2017 with no evidence of mitral valve prolapse, but the patient complained of mitral valve prolapse with ejection fraction 65%. The patient initially followed up with Dr. Granado, then quit and went to Dr. Gandhi, now the patient does not want to go to Dr. Gandhi's office and wanted us to follow. The patient was given option to go back to Dr. Granado as well as Dr. Gandhi, but the patient does not want and wanted to have a stress test done with us. We will review the previous stress test. We will get echocardiography to assess left ventricular function. If need, we will schedule a stress test as outpatient. We will follow with you. We will add hemoglobin A1c and echocardiography tomorrow. Thank you Dr. Flores for providing us the opportunity in taking care of the patient, Sarkis Plaza. Shalonda Conrad MD ANA
[2018-10-22] MEDS: Lidocaine 5% Patch TD SCH (08:08)
--- NOTE | 2018-10-22 08:08 | CON ---
DATE: 10/21/2018 HISTORY OF PRESENT ILLNESS: I examined Mr. Plaza this morning. He is a 53-year-old white male known to [employer] consultant with a past medical history of esophagitis, hiatal hernia, and severe gastritis. The patient had a recent endoscopic procedure about two weeks ago, which was significant for moderate degree of gastritis, esophagitis, but no ulcerations. The patient had significant complaints of dyspepsia including low retrosternal pain, right upper quadrant epigastric pain on an ongoing basis despite medication. Note that the patient was admitted to the hospital with complaints of disorientation as well as severe depression, the latter of which he has expressed during every office visit. The patient has been maintained on medications on the outpatient side, which apparently have not been working well. PHYSICAL EXAMINATION: VITAL SIGNS: I reviewed this patient's vital signs. HEENT: Noncontributory. LUNGS: Clear to auscultation. HEART: Regular rhythm. ABDOMEN: Soft, mild tenderness in the epigastric area. LABORATORY DATA: I reviewed this patient's laboratory data which is for the most part noncontributory. ASSESSMENT: This is a 53-year-old white male admitted with signs and symptoms of severe depression and also major complaints of inability to sleep. The patient is currently on the psychiatric unit and is presently undergoing treatment with several new medications that he has not tried before. From a GI standpoint, the patient will be maintained on at least one dose of pantoprazole before his breakfast and the use of famotidine or Pepcid in the evening after his evening meal. If requested, we would suggest increasing dose of pantoprazole while he is here in the hospital to one dose in the morning before breakfast and one before his evening meal. The patient is very familiar with antireflux precautions. At the current time point, the patient has significant neuro-psych issues; therefore while he is here, different modalities should be tried that he has not been tried before. Because of issues which could have also some cardiac implications, I talked to the nurses yesterday about obtaining a Cardiology consult. Apparently in the past, he has had a stress test by two separate modalities, which were noncontributory. Juni Loera DO, PhD MTDFelipe
[2018-10-22] MEDS: Pantoprazole 40 mg EC Tab PO SCH (08:10)
[2018-10-22] MEDS: Magnesium Citrate Oral SOL (300 ml) PO SCH (09:39)
--- NOTE | 2018-10-22 14:11 | PCM.PYCHPN ---
Psychiatric Progress Note - Psychiatric Progress Note Patient seen today, length of contact: 30 Patient Chief Complaint: "Dr. Shaw, I slept much better, but my stomach is bothering me, I did not move my bowel, panelbeater wants to do echocardiogram, a lot of things going" Problems Identified/Issues Discussed: Treatment plan, medications, risk/benefits/alternatives of the medications, safety plan, aftercare plan. Medical Problems: See HPI Diagnostic Results: 10/19/18 08:40 10/19/18 08:40 Lab Results 10/20/18 07:15: RPR Nonreactive 10/20/18 07:15: TSH 3rd Generation 2.08 10/20/18 07:15: Fasting Glucose 110, Triglycerides 113, Cholesterol 185, LDL Cholesterol Direct 119, HDL Cholesterol 38 10/19/18 09:10: Urine Opiates Screen Negative, Urine Methadone Screen Negative, Ur Barbiturates Screen Negative, Ur Phencyclidine Scrn Negative, Ur Amphetamines Screen Negative, U Benzodiazepines Scrn Positive H, U Oth Cocaine Metabols Negative, U Cannabinoids Screen Negative 10/19/18 09:10: Urine Color Yellow, Urine Appearance Clear, Urine pH 6.0, Ur Specific [place] 1.010, Urine Protein Negative, Urine Glucose (UA) Negative, Urine Ketones Negative, Urine Blood Negative, Urine Nitrate Negative, Urine Bilirubin Negative, Urine Urobilinogen 0.2, Ur Leukocyte Esterase Negative 10/19/18 08:40: Alcohol, Quantitative < 10 10/19/18 08:40: Salicylates < 1 L, Acetaminophen < 10.0 L 10/19/18 08:40: Sodium 137, Potassium 4.3, Chloride 102, Carbon Dioxide 25, Anion Gap 15, BUN 12, Creatinine 0.9, Est GFR ( Amer) > 60, Est GFR (Non- Af Amer) > 60, Random Glucose 122 H, Calcium 9.2, Magnesium 2.2, Total Bilirubin 0.3, AST 18, ALT 13, Alkaline Phosphatase 28 L, Total Protein 7.6, Albumin 4.2, Globulin 3.3, Albumin/Globulin Ratio 1.3 10/19/18 08:40: WBC 6.8, RBC 4.89, Hgb 14.0, Hct 41.8 L, MCV 85.5, MCH 28.6, MCHC 33.5, RDW 12.4, Plt Count 250, MPV 9.5, Neut % (Auto) 68.1 H, Lymph % (Auto) 22.4, [place] % (Auto) 8.5 H, Eos % (Auto) 0.7 L, Baso % (Auto) 0.3, Lymph # (Auto) 1.5, [place] # (Auto) 0.6, Eos # (Auto) 0.1, Baso # (Auto) 0.02, Absolute Neuts (auto) 4.63 Vital Signs Temp Pulse Resp BP Pulse Ox 10/21/18 07:20 97.6 F 76 128/81 10/21/18 07:18 97.6 F 76 85 H 128/81 10/20/18 15:00 59 L 18 123/80 10/20/18 08:44 56 L 112/79 10/20/18 07:15 97.7 F 56 L 20 112/79 10/19/18 16:00 74 107/69 10/19/18 15:16 76 132/98 H 10/19/18 11:20 97.9 F 76 18 132/98 H 98 10/19/18 10:45 78 18 121/76 99 10/19/18 09:59 86 18 123/75 100 10/19/18 08:24 98 F 92 H 18 99 Temp Pulse Resp BP Pulse Ox 97.6 F 109 H 20 125/84 98 10/22/18 07:07 10/22/18 07:07 10/22/18 07:07 10/22/18 07:07 10/19/18 11:20 DSM 5 Symptoms Update: shortly, pt is a 53 year old male, with reported h/o anxiety and depression, at least 2 voluntary psychiatric admissions to this facility 5B - 11/19/17 and 02/16/17, patient under care of Dr. Gómez Diggs - Psychiatrist for the past 2 years. Patient also has multiple medical issues including but not limited to gastritis, esophagitis, irritable bowel syndrome, came to the hospital looking for help for depressive symptoms, uncontrolled anxiety, self-injurious behavior such as slapping himself, patient also was not able to function, currently on disability from psychiatrist. Patient requires further evaluation and stabilization and medication adjustment. Patient was seen today at the treatment team meeting, patient reported that he slept better, patient still preoccupied with multiple somatic complaints, thought process seems to be overinclusive, circumstantial and tangential, patient was preoccupied with his feelings of anxiety, depression, inability to function. Patient appears genuinely depressed and anxious. Patient seems to be tolerating well the increase the dose of trazodone 150 mg at the nighttime, Abilify to 5 mg a day, patient reported that he feels "okay" on Klonopin. Patient still feels hopeless and helpless, passive wish to be . As per staff patient is visible in the unit, NAD, anxious. No agitation or aggression. Patient tolerates medications well, no side effects observed or reported, aims 0, no EPS. DSM 5 Diagnosis: Major depressive disorder, severe, no psychosis r/o mood disorder due to a [facility] r/o anxiety due to a [facility] Medication Change: Yes (Trazodone increased, Abilify increased yesterday) Medical Record Reviewed: Yes Mental Status Examination - Cognitive Function Orientation: Person, Place Memory: Intact Attention: Poor Concentration: Poor Association: WNL Fund of Knowledge: WNL - Mood Mood: Depressed, Anxious - Affect Affect: Constricted (And anxious), Flat - Formal Thought Process Formal Thought Process: No Impairment - Suicidal Ideation Suicidal Ideation: No - Homicidal Ideation Homicidal Ideation: No Goal/Treatment Plan - Goal/Treatment Plan Need for Continued Stay: Remain at risks for inpatient hospitalization, Severe depression anxiety, Discharge may exacerbated symptoms, Severe functional impairment Progress Toward Problem(s) and Goals/Treatment Plan: Milieu/structure/supportive therapy SW consultation for discharge plan and social issues Med management Trazodone 150mg at the nighttime for depression and insomnia Xanax only as needed Klonopin 1 mg 3 times a day for anxiety as scheduled Abilify 5 mg for mood stabilization and as adjunct for MDD (over the weekend pt might benefit from increase dose of abilify to bid) ECT was discussed medical evaluation GI f/u Family involvement Follow up on labs Will monitor closely Pt was educated about risk/benefits and alternatives of medications, coping strategies (safety plan, suicide prevention), relapse prevention, importance of follow up with psychiatrist and therapist, stay away from drugs/alcohol/smoking Estimated Date of D/C: 10/29/18
[2018-10-22] MEDS: Bisacodyl 5mg EC Tab PO PRN (14:40)
[2018-10-22] MEDS: POLYETHYLENE GLYCOL 3350 17 GM/Dose PACKET PO SCH (14:40)
--- NOTE | 2018-10-22 15:47 | CARD ---
APPROVED REPORT Date of service: 10/22/2018 EXAM: Two-dimensional and M-mode echocardiogram with Doppler and color Doppler. INDICATION Chest Pain 2D DIMENSIONS Left Atrium (2D)3.7 (1.6-4.0cm)IVSd0.9 (0.7-1.1cm) LVDd5.1 (3.9-5.9cm)PWd0.9 (0.7-1.1cm) LVDs3.2 (2.5-4.0cm)FS (%) 35.8 % LVEF (%)65.1 (>50%) M-Mode DIMENSIONS Aortic Root3.30 (2.2-3.7cm)Aortic Cusp Exc.2.10 (1.5-2.0cm) Aortic Valve AoV Peak Mbghmqtk854.0cm/Freda Peak GR.7mmHg Mitral Valve MV E Vgnmxglv59.9cm/sMV A Tqejihxq61.6cm/sE/A ratio1.2 TDI Lateral E' Peak V11.80cm/sMedial E' Peak V8.09cm/sE/Lateral E'6.9 E/Medial E'10.1 Pulmonary Valve PV Peak Bbvclrss77.6cm/sPV Peak Grad.2mmHg Tricuspid Valve TR Peak Npuicmjt574uc/sRAP KHDFVDWW75tiTrRH Peak Gr.21mmHg [id number] LEFT VENTRICLE The left ventricle is normal size. There is normal left ventricular wall thickness. The left ventricular function is normal. The left ventricular ejection fraction is within the normal range. There is normal LV segmental wall motion. The left ventricular diastolic function is normal. No left ventricle thrombus noted on this study. There is no ventricular septal defect visualized. There is no left ventricular aneurysm. There is no mass noted in the left ventricle. RIGHT VENTRICLE The right ventricle is normal size. There is normal right ventricular wall thickness. The right ventricular systolic function is normal. ATRIA The left atrium size is normal. The right atrium size is normal. The interatrial septum is intact with no evidence for an atrial septal defect. AORTIC VALVE The aortic valve is thickened but opens well. Trivial AR There is no aortic valvular stenosis. There is no aortic valvular vegetation. MITRAL VALVE The mitral valve is thickened but opens well. Mitral regurgitation is trace. There is no mitral valve stenosis. There is no evidence of mitral valve prolapse. TRICUSPID VALVE The tricuspid valve leaflets are thickened , but open well. There is trace to mild tricuspid regurgitation.RVSP-30 mmof Hg. There is no tricuspid valve stenosis. There is no tricuspid valve prolapse or vegetation. PULMONIC VALVE The pulmonary valve is normal in structure. Trivial PI There is no pulmonic valvular stenosis. GREAT VESSELS The aortic root is normal in size. The ascending aorta is normal in size. The pulmonary artery is normal. The IVC is normal in size and collapses >50% with inspiration. PERICARDIAL EFFUSION There is no pleural effusion. There is no pericardial effusion. <Conclusion> Normal Chamber Size. EF-65%. Trivial AR/PI Trace MR Trace to Mild TR, RVSP-30 mmof Hg. There is no pericardial effusion. The IVC is normal in size and collapses >50% with inspiration.
--- NOTE | 2018-10-22 20:26 | PN ---
DATE: 10/22/2018 REASON FOR CONSULTATION AND FOLLOWUP: Cardiac evaluation, multiple risk factors for coronary artery disease, as suggested by floor service worker spring. SUBJECTIVE: The patient denies any chest pain, shortness of breath, or any palpitation. The patient is not in apparent distress. The patient is in the psych floor for depression. PHYSICAL EXAMINATION: VITAL SIGNS: Temperature afebrile, heart rate 76, blood pressure 103/67. HEENT: PERRLA. Extraocular muscles intact. NECK: Supple. No carotid bruits. No thyromegaly. CHEST: Clear to auscultation. HEART: S1 and S2, regular. ABDOMEN: Soft. EXTREMITIES: Clubbing, cyanosis negative. IMPRESSION: A 53-year-old male with past medical history significant for smoking history, history of cardiac catheterization on 05/09/2018, unremarkable coronary, with normal left ventricular function, dated 05/09/2018, done by Dr. Kenny Granado. Following that the patient had echocardiogram done on 06/17/2018 that revealed normal left ventricular function, ejection fraction of 55%. Trace aortic regurgitation. No evidence of mitral valve prolapse. The patient had stress test on 06/17 2017 that showed ejection fraction 56%, normal cardiogenic study in comparison to last study dated 06/19/2018, no significant change noted. RECOMMENDATIONS: The patient first seen by Dr. Granado, then Dr. Gandhi, now patient does not want to . Since patient had recently a stress test in May, almost a year, in 13 to 14 months, that is May 2017 was essentially normal. We will order echo to assess LV function, his shortness of breath. Further recommendations depending on the hospital course. We will follow with you. Thank you Dr. Flores for the opportunity in taking care of the patient. Shalonda Conrad MD
--- NOTE | 2018-10-23 08:33 | PCM.PYCHPN ---
Psychiatric Progress Note - Psychiatric Progress Note Patient seen today, length of contact: 30 min Problems Identified/Issues Discussed: I reviewed assessment and recent notes. I met with patient at bedside. He is cooperative and well oriented to month, year, location and circumstances. Groomi ng is adequate. Patient reports that he continues to feel depressed, anxious, jumpy and overwhelmed. Affect appears anxious. Thought process is generally coherent but patient can be overinclusive, circumstantial and rambling. He is also somatic. This is consistent with his prior presentations on the unit. Patient denies any perceptual disturbance and he is not suicidal or homicidal. Denies self harm behaviors on the unit. Overt delusions were not elicited. Patient is tolerating his medications and denies any new discomfort or pain. Sleep was up and down last night and patient had to ask for an ambien to be able to fall asleep. Per staff, patient is visible but not engaging or interacting too much with peers yet. He attends groups with minimal involvement. There were no major behavioral issues overnight. Diagnostic Results: Major depressive disorder, severe, no psychosis r/o mood disorder due to a [facility] r/o anxiety due to a [facility] Medication Change: No ( ) Medical Record Reviewed: Yes Mental Status Examination - Cognitive Function Orientation: Person, Place Memory: Intact Attention: Poor Concentration: Poor Association: WNL Fund of Knowledge: WNL - Mood Mood: Depressed, Anxious - Affect Affect: Constricted (And anxious), Flat - Speech Speech: Appropriate - Formal Thought Process Formal Thought Process: No Impairment (overinclusive, rambling, circumstantial) - Suicidal Ideation Suicidal Ideation: No - Homicidal Ideation Homicidal Ideation: No Goal/Treatment Plan - Goal/Treatment Plan Need for Continued Stay: Remain at risks for inpatient hospitalization, Severe depression anxiety, Discharge may exacerbated symptoms, Severe functional impairment Progress Toward Problem(s) and Goals/Treatment Plan: * c/w current tx and plan * Vitals reviewed and noted below: Selected Entries 10/22/18 10/22/18 10/23/18 07:07 16:00 06:45 Temperature 97.6 F 97.8 F Pulse Rate 109 H 60 83 Respiratory 20 18 Rate Blood Pressure 125/84 106/70 108/71 * No new weekend lab results noted thus far Estimated Date of D/C: 10/29/18
[2018-10-23] MEDS: Magnesium Citrate Oral SOL (300 ml) PO SCH (08:59)
[2018-10-23] MEDS: Pantoprazole 40 mg EC Tab PO SCH (08:59)
[2018-10-23] MEDS: POLYETHYLENE GLYCOL 3350 17 GM/Dose PACKET PO SCH (09:00)
[2018-10-23] MEDS: Lidocaine 5% Patch TD SCH (09:00)
--- NOTE | 2018-10-23 12:24 | PN ---
DATE: 10/22/2018 SUBJECTIVE: The patient is walking in the hallway. He is comfortable. He seems doing better. He slept good last night on trazodone 150, and he still has problem bowel movement. No chest pain. No short of breath. Stable otherwise. He seems better. PHYSICAL EXAMINATION: VITAL SIGNS: Temperature is 97, heart rate is 109, blood pressure 125/84, and respiration 20. HEAD AND NECK: Normal. No JVD. No thyromegaly. CHEST: Clear bilaterally. CARDIAC: First sound and second sound normal. No murmur, rub, or gallop. ABDOMEN: Soft and nontender. EXTREMITIES: No edema. NEUROLOGIC: Normal. LABORATORY DATA: The patient had an echocardiogram which showed ejection fraction 65%. No other just trace regurgitation . IMPRESSION: 1. Depression, anxiety, and insomnia. Seems doing better with trazodone 150 plus Geodon, Abilify, Klonopin, and Xanax. Continue current psychiatric medications. Seems doing better. 2. Chronic constipation. Getting Maxitrate; we will see how he will does. Continue current medications, Dulcolax, Colace and Protonix. Continue gastrointestinal medications. We will follow up on that. The patient had a colonoscopy recently. There is no polyps; no obstructive lesions. 3. The patient had chronic back pain. Continue Lidoderm patch. 4. History of hiatal hernia and acid reflux. Continue Protonix. 5. History of hypertension, stable. Norvasc 5 mg. PLAN: Continue current therapy. Follow up clinically. Keaton Muse MD
--- NOTE | 2018-10-24 09:02 | PCM.PYCHPN ---
Psychiatric Progress Note - Psychiatric Progress Note Patient seen today, length of contact: 30 min Problems Identified/Issues Discussed: I reviewed recent notes and met with patient at bedside again. He remains cooperative, friendly and well oriented to month, year, location and circumstances. Grooming is adequate. Patient reports that he continues to feel depressed, anxious and overwhelmed however these symptoms are improving a little. His affect is anxious and constricted. Thought process is generally coherent but patient can be circumstantial and rambling. He needs redirection but this is also getting better (and consistent with his prior presentations on the unit). Patient denies any perceptual disturbance and he is not suicidal or homicidal. Denies self harm behaviors on the unit. Overt delusions were not elicited. Patient is tolerating his medications and denies any new discomfort or pain. Sleep was a little better last night. Staff notes indicate that patient's constipation is much improved and patient had BMs on the unit over the weekend. Per staff, patient is more visible and engaging with staff and peers. He attends groups with good participation. Patient is very grateful to staff members for their help on the unit "they are all top shelf". There were no major behavioral issues over the weekend. Diagnostic Results: Major depressive disorder, severe, no psychosis r/o mood disorder due to a [facility] r/o anxiety due to a [facility] Medication Change: No ( ) Medical Record Reviewed: Yes Mental Status Examination - Cognitive Function Orientation: Person, Place Memory: Intact Attention: WNL Concentration: Poor Association: WNL Fund of Knowledge: WNL - Mood Mood: Depressed (improving a little), Anxious - Affect Affect: Constricted (And anxious), Flat - Speech Speech: Appropriate - Formal Thought Process Formal Thought Process: No Impairment (overinclusive, rambling, circumstantial), Circumstantial - Suicidal Ideation Suicidal Ideation: No - Homicidal Ideation Homicidal Ideation: No Goal/Treatment Plan - Goal/Treatment Plan Need for Continued Stay: Remain at risks for inpatient hospitalization, Severe depression anxiety, Discharge may exacerbated symptoms, Severe functional impairment Progress Toward Problem(s) and Goals/Treatment Plan: * c/w current tx and plan * * Appreciate f/u by Dr. Muse on 10/23/18~c/w current treatment, will continue to f/u * Vitals reviewed and noted below: Selected Entries 10/23/18 10/23/18 06:45 15:54 Temperature 97.8 F Pulse Rate 83 62 Respiratory 18 Rate Blood Pressure 108/71 109/73 * No new weekend lab results noted Estimated Date of D/C: 10/29/18
[2018-10-24] MEDS: Pantoprazole 40 mg EC Tab PO SCH (09:22)
[2018-10-24] MEDS: Lidocaine 5% Patch TD SCH (09:24)
[2018-10-24] MEDS: POLYETHYLENE GLYCOL 3350 17 GM/Dose PACKET PO SCH (09:24)
[2018-10-24] MEDS: Magnesium Citrate Oral SOL (300 ml) PO SCH (09:27)
[2018-10-25] MEDS: Pantoprazole 40 mg EC Tab PO SCH (06:59)
[2018-10-25] MEDS: Lidocaine 5% Patch TD SCH (09:02)
[2018-10-25] MEDS: Magnesium Citrate Oral SOL (300 ml) PO SCH (09:04)
[2018-10-25] MEDS: POLYETHYLENE GLYCOL 3350 17 GM/Dose PACKET PO SCH (09:04)
--- NOTE | 2018-10-25 09:29 | PN ---
DATE: 10/22/2018 SUBJECTIVE: The patient is stable, walking around. He moves his bowels. He still has difficulty sleeping. Seen by psychiatrist. PHYSICAL EXAMINATION: VITAL SIGNS: Temperature 97.6, heart rate 76, blood pressure 128/81 and respirations 20. HEENT: Head and neck, normal. No JVD. No thyromegaly. CHEST: Clear bilateral. CARDIAC: First sounds and second sound normal. No murmur, rub or gallop. ABDOMEN: Soft and nontender. EXTREMITIES: No edema. NEUROLOGIC: Normal. IMPRESSION AND PLAN: 1. Depression, anxiety and insomnia. The patient was seen by psychiatrist. Continue Klonopin. Continue Xanax, Ambien p.r.n., and Abilify. The patient is seen by psychiatrist and we followed him. The patient also getting Geodon p.r.n. IM and p.o. for his depression and for problems. The patient otherwise stable and improving. We will planning to increase trazodone to 150 mg at bedtime to help him for the sleep and depression. 2. Chronic back pain. He does have degenerative disk disease. He did have gastritis, endoscopy and we will followup on that. 3. Chronic constipation. Continue MiraLax. Continue milk of magnesia, . PLAN: Continue current therapy. Keaton Muse MD
--- NOTE | 2018-10-25 14:13 | PN ---
DATE: 10/23/2018 SUBJECTIVE: The patient is sitting in the therapy room with the therapist. They were playing the ball and . The patient seems stable. No distress. He slept okay with trazodone 150, but was better with Ambien. There is no chest pain, no shortness of breath, no nausea, and no vomiting. He had a bowel movement. PHYSICAL EXAMINATION: VITAL SIGNS: On 10/23/2018; temperature 97.6, heart rate is 60, blood pressure 106/70, and respirations 20. HEAD AND NECK: Normal. No JVD. No thyromegaly. CHEST: Clear bilateral. CARDIAC: First sound and second sounds are normal. ABDOMEN: Soft. No tenderness. EXTREMITIES: No edema. NEUROLOGIC: Normal. IMPRESSION AND PLAN: 1. The patient has chronic anxiety, insomnia, and depression with some repeated episodes. Seems responding well to mild neuroleptic medications plus Abilify 5 mg p.o. daily plus Klonopin scheduled 1 mg b.i.d. and 1 at bedtime and seems doing well. The patient also has Geodon p.r.n. 20 every 6 hours p.o. and p.r.n. Continue trazodone 150 at bedtime. 2. Gastritis. The patient is stable, had endoscopies, seems doing well. 3. The patient has some sort of chest discomfort. Radiology seen the patient. Echo seems normal. 4. Chronic back pain. Continue Lidoderm patch. Continue muscle relaxants. Follow up clinically and we will follow up. CURRENT MEDICATIONS: Abilify 5 mg p.o. daily, Ambien p.r.n., Ativan 2 mg IM every 6 hours p.r.n., Xanax 1 mg p.o. t.i.d. p.r.n., Klonopin he takes 1 mg b.i.d. and 1 mg at bedtime scheduled. Also the patient is getting Ativan 2 mg IM every 6 hours p.r.n., Dulcolax 5 mg b.i.d., Geodon 20 p.r.n. IM or p.o., getting Lidoderm patch, MiraLax, Norvasc 5 mg, Pepcid 40, Protonix 40, Tylenol, and Xanax 1 mg t.i.d. Continue current therapy. The patient seems stable except for insomnia with the lack of Ambien, it seems helping much; however, we will leave that intervention to the psychiatrist, . The patient is better. Keaton Muse MD
--- NOTE | 2018-10-25 14:19 | PN ---
DATE: 10/24/2018 SUBJECTIVE: The patient seems doing well. He is lying in the bed. The patient slept very well last night with the Ambien in addition to trazodone and Ambien 10 mg, he is doing very well. He still has a little bit sedation according to him after Klonopin, but does arise. Mental status is improving. PHYSICAL EXAMINATION: VITAL SIGNS: On 10/24/2018; the patient has temperature 98, heart rate 76, blood pressure 114/73, and respiratory rate 20. HEAD AND NECK: Normal. No JVD. No thyromegaly. CHEST: Clear bilaterally. CARDIAC: First sound and second sound normal. No murmur, rub, or gallop. ABDOMEN: Soft, nontender. EXTREMITIES: No edema. NEUROLOGICAL: Normal. IMPRESSION AND PLAN: 1. Acute worsening phase of chronic anxiety, insomnia and depression. The patient is stable on current meds as per Dr. Shaw. He is getting maintenance dose of Abilify 5 mg at bedtime, Ambien 10 mg as needed for insomnia, trazodone 150, Klonopin 1 mg 3 times a day plus as needed medication including Ativan 2 mg intramuscularly every 6 hours, Geodon 20 mg every 6 hours and Xanax 1 mg t.i.d. as needed. Continue current psychotropic medications, stable. 2. Chronic constipation with . Continue Dulcolax, MiraLax, Colace and we will follow up on that. 3. Chronic back pain and chronic gastritis. The patient had endoscopy recently within the last 10 days, stable. Dr. Edwards seen the patient in the past and the patient seems stable. Continue Protonix and Pepcid. Continue Lidoderm patch. Follow up clinically. Keaton Muse MD
--- NOTE | 2018-10-25 14:28 | PN ---
DATE: 10/25/2018 REASON FOR CONSULTATION AND FOLLOWUP: Cardiac evaluation, multiple risk factors for coronary artery disease; suggested by cabinet installer to have a cardiac evaluation. SUBJECTIVE: The patient denies any chest pain, shortness of breath, or any palpitation. OBJECTIVE: Examination as follows; GENERAL: Not in apparent distress. VITAL SIGNS: Temperature afebrile, heart rate 56, and blood pressure 114/53. HEENT: PERRLA. Extraocular muscles intact. NECK: Supple. No carotid bruits or thyromegaly. CHEST: Clear to auscultation. HEART: S1 and S2 regular. ABDOMEN: Soft. EXTREMITIES: Clubbing and cyanosis negative. LABORATORY DATA: Blood workup as follows; WBC 6.8, hemoglobin 14, hematocrit 41.8, and platelet count 250. Chemistry shows sodium 134, potassium 4.3, chloride 102, carbon dioxide 25, anion gap of 15, BUN 12, and creatinine 0.2. Triglycerides 113, cholesterol 185, LDL 119, HDL 38, and TSH 2.08. IMPRESSION: A 53-year-old male with a past medical history significant for a smoker; history of cardiac catheterization on 05/09/2018 with unremarkable coronary, normal ejection fraction dated 05/09/2018, done by Dr. Granado. Followed by the patient had echocardiography on 06/17/2018 that revealed normal left ventricular function, ejection fraction 55%, and trace aortic regurgitation. No evidence of mitral valve prolapse. The patient had a stress test on 06/17/2017 that shows ejection fraction 58%; normal study in comparison to the last study on 06/19/2018 with no significant change. The patient had a repeat echocardiography on 10/22/2018 that revealed ejection fraction 65%, normal chamber size, trace mitral regurgitation, trivial aortic regurgitation, trivial pulmonary insufficiency, trace to mild tricuspid regurgitation, and right ventricular systolic pressure 30. No pericardial effusion. RECOMMENDATIONS: The patient's cardiac evaluation mentioned that the patient had a cardiac catheterization on 05/09/2018 with normal coronaries. The patient's prior test is negative. Echo is essentially normal. The patient is seen by Dr. Granado, they went to Dr. Gandhi, now. The patient so cardiac evaluations done, looks okay. Needs aggressive medical treatment. Weight reduction modification life style, modification risk factor of the coronary artery disease. LDL is 119, suggests weight reduction modification life style, modification risk factor, and dietary habit. We will follow him as outpatient. No further cardiac workup is planned. Thank you Dr. Flores for providing us the opportunity in taking care of the patient, [place]. Shalonda Conrad MD
--- NOTE | 2018-10-25 14:35 | PCM.PYCHPN ---
Psychiatric Progress Note - Psychiatric Progress Note Patient seen today, length of contact: 30 min Patient Chief Complaint: "I feel depressed, but more hopeful..." Problems Identified/Issues Discussed: Treatment plan, medications, risk/benefits/alternatives of the medications, safety plan, aftercare plan. Medical Problems: See HPI Diagnostic Results: 10/19/18 08:40 10/19/18 08:40 Lab Results 10/20/18 07:15: RPR Nonreactive 10/20/18 07:15: TSH 3rd Generation 2.08 10/20/18 07:15: Fasting Glucose 110, Triglycerides 113, Cholesterol 185, LDL Cholesterol Direct 119, HDL Cholesterol 38 10/19/18 09:10: Urine Opiates Screen Negative, Urine Methadone Screen Negative, Ur Barbiturates Screen Negative, Ur Phencyclidine Scrn Negative, Ur Amphetamines Screen Negative, U Benzodiazepines Scrn Positive H, U Oth Cocaine Metabols Negative, U Cannabinoids Screen Negative 10/19/18 09:10: Urine Color Yellow, Urine Appearance Clear, Urine pH 6.0, Ur Specific [place] 1.010, Urine Protein Negative, Urine Glucose (UA) Negative, Urine Ketones Negative, Urine Blood Negative, Urine Nitrate Negative, Urine B ilirubin Negative, Urine Urobilinogen 0.2, Ur Leukocyte Esterase Negative 10/19/18 08:40: Alcohol, Quantitative < 10 10/19/18 08:40: Salicylates < 1 L, Acetaminophen < 10.0 L 10/19/18 08:40: Sodium 137, Potassium 4.3, Chloride 102, Carbon Dioxide 25, Anion Gap 15, BUN 12, Creatinine 0.9, Est GFR ( Amer) > 60, Est GFR (Non- Af Amer) > 60, Random Glucose 122 H, Calcium 9.2, Magnesium 2.2, Total Bilirubin 0.3, AST 18, ALT 13, Alkaline Phosphatase 28 L, Total Protein 7.6, Albumin 4.2, Globulin 3.3, Albumin/Globulin Ratio 1.3 10/19/18 08:40: WBC 6.8, RBC 4.89, Hgb 14.0, Hct 41.8 L, MCV 85.5, MCH 28.6, MCHC 33.5, RDW 12.4, Plt Count 250, MPV 9.5, Neut % (Auto) 68.1 H, Lymph % (Auto) 22.4, [place] % (Auto) 8.5 H, Eos % (Auto) 0.7 L, Baso % (Auto) 0.3, Lymph # (Auto) 1.5, [place] # (Auto) 0.6, Eos # (Auto) 0.1, Baso # (Auto) 0.02, Absolute Neuts (auto) 4.63 Vital Signs Temp Pulse Resp BP Pulse Ox 10/21/18 07:20 97.6 F 76 128/81 10/21/18 07:18 97.6 F 76 85 H 128/81 10/20/18 15:00 59 L 18 123/80 10/20/18 08:44 56 L 112/79 10/20/18 07:15 97.7 F 56 L 20 112/79 10/19/18 16:00 74 107/69 10/19/18 15:16 76 132/98 H 10/19/18 11:20 97.9 F 76 18 132/98 H 98 10/19/18 10:45 78 18 121/76 99 10/19/18 09:59 86 18 123/75 100 10/19/18 08:24 98 F 92 H 18 99 Temp Pulse Resp BP Pulse Ox 97.6 F 109 H 20 125/84 98 10/22/18 07:07 10/22/18 07:07 10/22/18 07:07 10/22/18 07:07 10/19/18 11:20 DSM 5 Symptoms Update: Patient was seen today at the treatment team meeting, patient presented with some improvement, patient reported that he slept to nights but last night he had diarrhea and was not able to sleep, patient reported that he continued feeling depressed but more hopeful for the future, at times patient reports feeling very anxious but Klonopin seems to be working. Thought process is generally coherent but patient can be circumstantial and rambling, patient reported that she has racing thoughts are "getting better", patient reported overall he likes medications what he is currently on. As per staff report patient is more visible and engaging with staff and peers. He attends groups with good participation. Patient is very grateful to staff. There were no major behavioral issues over the weekend. Patient tolerates medications well, no side effects observed or reported, aims 0, no EPS. Diagnostic Results: Major depressive disorder, severe, no psychosis r/o mood disorder due to a [facility] [place] anxiety due to [place] [facility] Medication Change: Yes (Abilify increased) Medical Record Reviewed: Yes Mental Status Examination - Cognitive Function Orientation: Person, Place Memory: Intact Attention: WNL Concentration: Poor Association: WNL Fund of Knowledge: WNL - Mood Mood: Depressed ("improving a little"), Anxious - Affect Affect: Constricted (And anxious), Flat - Speech Speech: Appropriate - Formal Thought Process Formal Thought Process: No Impairment (overinclusive, rambling, circumstantial), Circumstantial - Suicidal Ideation Suicidal Ideation: No - Homicidal Ideation Homicidal Ideation: No Goal/Treatment Plan - Goal/Treatment Plan Need for Continued Stay: Remain at risks for inpatient hospitalization, Severe depression anxiety, Discharge may exacerbated symptoms, Severe functional impairment Progress Toward Problem(s) and Goals/Treatment Plan: Milieu/structure/supportive therapy SW consultation for discharge plan and social issues Med management Trazodone 150mg at the nighttime for depression and insomnia Xanax only as needed Klonopin 1 mg 3 times a day for anxiety as scheduled Abilify 5 mg for mood stabilization ECT was discussed medical evaluation GI f/u Family involvement Follow up on labs Will monitor closely Pt was educated about risk/benefits and alternatives of medications, coping strategies (safety plan, suicide prevention), relapse prevention, importance of follow up with psychiatrist and therapist, stay away from drugs/alcohol/smoking Estimated Date of D/C: 10/26/18
[2018-10-26] MEDS: Pantoprazole 40 mg EC Tab PO SCH (06:55)
[2018-10-26 06:59] VITALS: PULSE 58; RESP 19; TEMP 97.6
[2018-10-26] MEDS: Lidocaine 5% Patch TD SCH (08:33)
[2018-10-26 08:48] VITALS: BP 108/74
[2018-10-26] MEDS: Magnesium Citrate Oral SOL (300 ml) PO SCH (08:48)
[2018-10-26] MEDS: POLYETHYLENE GLYCOL 3350 17 GM/Dose PACKET PO SCH (08:49)
--- NOTE | 2018-10-26 12:20 | PN ---
DATE: 10/25/2018 SUBJECTIVE: The patient is doing better. He slept good. He just feel a little bit hangover from the medication in the mornings, but otherwise is doing well. PHYSICAL EXAMINATION: VITAL SIGNS: Temperature 98, heart rate 76, blood pressure 114/73, respirations 20. HEAD AND NECK: Normal. No JVD. No thyromegaly. CHEST: Clear bilateral. CARDIAC: First sound and second sound normal. ABDOMEN: Soft and nontender. EXTREMITIES: No edema. NEUROLOGICAL: Normal. IMPRESSION: 1. Chronic depression, anxiety, and insomnia. Continue medications. The patient is stable on trazodone, Klonopin, Abilify. He is doing well. We will continue to follow up with his psychiatrist. 2. The patient has chronic back pain. Continue Lidoderm patch. 3. Chronic hypertension, chronic gastritis. PLAN: Continue current therapy. Follow up clinically. Keaton Muse MD
--- NOTE | 2018-10-26 13:16 | PCM.BM ---
<Angela Pretty - Last Filed: 10/26/18 13:14> Treatment Plan Problems - Problems identified on initial assessmt Anxiety Date Initiated: 10/19/18 (d/c home,more calmer and more positive coping skills) Time Initiated: 12:00 Date resolved: 10/26/18 Assessment reference: NA Status: Active Priority: 1 Hopelessness/Helplessness Date Initiated: 10/19/18 Time Initiated: 12:00 Date resolved: 10/26/18 Assessment reference: NA Status: Active Priority: 2 Feelings of Worthlessness Date Initiated: 10/19/18 Time Initiated: 12:00 Date resolved: 10/26/18 Assessment reference: NA Status: Active Priority: 3 Medication Nonadherence Date Initiated: 10/19/18 Time Initiated: 12:00 Date resolved: 10/26/18 Assessment reference: NA Status: Active Priority: 4 Altered Sleep Patterns Date Initiated: 10/19/18 Time Initiated: 12:00 Date resolved: 10/26/18 Assessment reference: NA Status: Active Priority: 5 Social Isolation Date Initiated: 10/19/18 Time Initiated: 12:00 Date resolved: 10/26/18 Assessment reference: NA Status: Active Priority: 6 Ineffective Coping Date Initiated: 10/19/18 Time Initiated: 12:00 Date resolved: 10/26/18 Assessment reference: NA Status: Active Priority: 7 Treatment assets and liabiliti Patient Assests: cooperative, educated, resourceful, self-reliant, ADL independent, negotiates basic needs, good past tx response, cognitively intact Patient Liabilities: live alone, financial problems, medical problems - Milieu Protocol Maintain good personal hygiene: daily Encourage regular showers, daily Remind patient to perform daily oral care, every shift Assist patient to perform ADL's Maintain personal safety: every shift Educate patient to report safety concerns to staff, every shift Monitor environment for contraband/sharps Medication safety: Monitor for expected outcome, potential side effects: every shift, Assess barriers to learning: every shift, Assess readiness for medication education: every shift Milieu Narrative: Milieu/structure/supportive therapy SW consultation for discharge plan and social issues Med management Trazodone 150mg at the nighttime for depression and insomnia Xanax only as needed Klonopin 1 mg 3 times a day for anxiety as scheduled Abilify 5 mg for mood stabilization ECT was discussed medical evaluation GI f/u Family involvement Follow up on labs Will monitor closely Pt was educated about risk/benefits and alternatives of medications, coping strategies (safety plan, suicide prevention), relapse prevention, importance of follow up with psychiatrist and therapist, stay away from drugs/alcohol/smoking Family Contact Family involvement: Famliy/SO not involved - Outside Agency Dr. Gómez Diggs [facility] involvment: Information-sharing Agency contact name: Dr. Gómez Diggs Agency contact number: [phone] - Goals for Treatment Patient goals for treatment: Less anxiety Discharge/Continuing Care - Education Needs Education Needs: Patient Medication, Patient Diagnosis/Disease Process, Patient Coping Skills, Patient Anger Management skills, Patient Placement options, Patient Community resources, Patient Activities of Daily Living, Patient Pain, Patient Nutrition, Patient Uses of Medical Equipment, Patient Health Prac tices/Safety, Patient Personal Hygiene/Grooming, Patient Aftercare Safety Plan, Patient Other - Discharge Discharge Criteria: Tolerates medication w/o severe side effects - Treatment Team Participation Patient/Family/SO Statement: Milieu/structure/supportive therapy SW consultation for discharge plan and social issues Med management Trazodone 150mg at the nighttime for depression and insomnia Xanax only as needed Klonopin 1 mg 3 times a day for anxiety as scheduled Abilify 5 mg for mood stabilization ECT was discussed medical evaluation GI f/u Family involvement Follow up on labs Will monitor closely Pt was educated about risk/benefits and alternatives of medications, coping strategies (safety plan, suicide prevention), relapse prevention, importance of follow up with psychiatrist and therapist, stay away from drugs/alcohol/smoking Treatment Plan Review - Problem Anxiety Time Initiated: 12:00 Hopelessness/Helplessness Time Initiated: 12:00 Feelings of Worthlessness Time Initiated: 12:00 Medication Nonadherence Time Initiated: 12:00 Altered Sleep Patterns Time Initiated: 12:00 Social Isolation Time Initiated: 12:00 Ineffective Coping Time Initiated: 12:00 <Valeria Flores - Last Filed: 10/26/18 15:41> - Diagnosis (1) Anxiety disorder due to general medical condition with panic attack Status: Acute Interventions: 10/26/18 15:40 Anxiety is under control, patient tolerates Klonopin well, denies suicidal ideation denied homicidal ideation, patient is utilizing relaxation technique and breathing exercises (2) Major depression Status: Acute Interventions: 10/26/18 15:40 Depression much better He denies thoughts of harming himself or others Patient tolerates medications well, no side effects observed or reported Coping strategies Suicide prevention
--- NOTE | 2018-10-26 15:46 | PCM.PYCHDC ---
Mental Status Examination - Mental Status Examination Orientation: Person, Place, Situation, Time Memory: Intact Mood: Neutral Affect: Constricted (But reactive and mood congruent) Speech: Appropriate Attention: WNL Concentration: WNL Association: WNL Fund of Knowledge: WNL Formal Thought Process: No Impairment Description of patient's judgement and insight: Pt has improved insight into mental and medical illness, pt was compliant with medications and unit rules and regulations, pt was going to groups, was calm, cooperative, socially appropriate, no behavioral incidents, no agitation, no aggression. Psychotic Thoughts and Behaviors: Pt denied v/a/t hallucinations, denied paranoid ideations, pt does not appear to be psychotic, and thought process is goal directed. Suicidal Ideation: No Current Homicidal Ideation?: No Plan: pt adamantly denied thoughts of harming self or others denied intent or plan. Discharge Plan - Discharge Note Reason for Hospitalization: Patient was admitted for evaluation stabilization for depressive symptoms, anxiety, insomnia, inability to function, passive wish to be . Please see admission note for more detailed information Psychiatric History (includes Medical, Family, Personal Hx): See HPI Laboratory Data: 10/19/18 08:40 10/19/18 08:40 Lab Results 10/22/18 07:30: Hemoglobin A1c 5.9 10/20/18 07:15: RPR Nonreactive 10/20/18 07:15: TSH 3rd Generation 2.08 10/20/18 07:15: Fasting Glucose 110, Triglycerides 113, Cholesterol 185, LDL Cholesterol Direct 119, HDL Cholesterol 38 10/19/18 09:10: Urine Opiates Screen Negative, Urine Methadone Screen Negative, Ur Barbiturates Screen Negative, Ur Phencyclidine Scrn Negative, Ur Amphetamines Screen Negative, U Benzodiazepines Scrn Positive H, U Oth Cocaine Metabols Negative, U Cannabinoids Screen Negative 10/19/18 09:10: Urine Color Yellow, Urine Appearance Clear, Urine pH 6.0, Ur Specific [place] 1.010, Urine Protein Negative, Urine Glucose (UA) Negative, U rine Ketones Negative, Urine Blood Negative, Urine Nitrate Negative, Urine Bilirubin Negative, Urine Urobilinogen 0.2, Ur Leukocyte Esterase Negative 10/19/18 08:40: Alcohol, Quantitative < 10 10/19/18 08:40: Salicylates < 1 L, Acetaminophen < 10.0 L 10/19/18 08:40: Sodium 137, Potassium 4.3, Chloride 102, Carbon Dioxide 25, Anion Gap 15, BUN 12, Creatinine 0.9, Est GFR ( Amer) > 60, Est GFR (Non- Af Amer) > 60, Random Glucose 122 H, Calcium 9.2, Magnesium 2.2, Total Bilirubin 0.3, AST 18, ALT 13, Alkaline Phosphatase 28 L, Total Protein 7.6, Albumin 4.2, Globulin 3.3, Albumin/Globulin Ratio 1.3 10/19/18 08:40: WBC 6.8, RBC 4.89, Hgb 14.0, Hct 41.8 L, MCV 85.5, MCH 28.6, MCHC 33.5, RDW 12.4, Plt Count 250, MPV 9.5, Neut % (Auto) 68.1 H, Lymph % (Auto) 22.4, Green % (Auto) 8.5 H, Eos % (Auto) 0.7 L, Baso % (Auto) 0.3, Lymph # (Auto) 1.5, Green # (Auto) 0.6, Eos # (Auto) 0.1, Baso # (Auto) 0.02, Absolute Neuts (auto) 4.63 Vital Signs Temp Pulse Resp BP Pulse Ox 10/26/18 08:33 58 L 108/74 10/26/18 06:58 97.6 F 58 L 19 108/71 10/25/18 16:00 68 111/69 10/25/18 09:03 63 114/73 10/25/18 07:33 98.2 F 76 20 114/73 10/24/18 16:28 54 L 125/76 10/24/18 09:22 102/72 10/24/18 07:22 98.0 F 68 20 108/72 10/23/18 15:54 62 109/73 10/23/18 06:45 97.8 F 83 18 108/71 10/22/18 16:00 60 106/70 10/22/18 07:07 97.6 F 109 H 20 125/84 10/21/18 16:00 73 103/67 10/21/18 07:20 97.6 F 76 128/81 10/21/18 07:18 97.6 F 76 85 H 128/81 10/20/18 15:00 59 L 18 123/80 05/29/19 08:44 56 L 112/79 10/20/18 07:15 97.7 F 56 L 20 112/79 10/19/18 16:00 74 107/69 10/19/18 15:16 76 132/98 H 10/19/18 11:20 97.9 F 76 18 132/98 H 98 10/19/18 10:45 78 18 121/76 99 10/19/18 09:59 86 18 123/75 100 10/19/18 08:24 98 F 92 H 18 99 Consultations:: List each consultation separately and include: 1. Reason for request. 2. Findings. 3. Follow-up Consultations: Medical consult appreciated, GI consult appreciated. Please see consultation notes for more detailed information Summary of Hospital Course include:: 1. Description of specific treatment plan utilized for patients during their course of treatmen. 2. Summarize the time- course for resolution of acute symptoms and/or regressed behaviors. 3. Describe issues identified and worked on during hospitalization. 4. Describe medication utilized. 5. Describe medical problems identified and treated. 6. Reassessment of suicide risk Summary of Hospital Course: shortly, pt is a 53 year old male, with reported h/o anxiety and depression, at least 2 voluntary psychiatric admissions to this facility 5B - 11/19/17 and 02/16/17, patient under care of Dr. Gómez Diggs - Psychiatrist for the past 2 years. Patient also has multiple medical issues including but not limited to gastritis, esophagitis, irritable bowel syndrome, came to the hospital looking for help for depressive symptoms, uncontrolled anxiety, self-injurious behavior such as slapping himself, patient also was not able to function, currently on disability from psychiatrist. Patient required further evaluation and stabilization and medication adjustment. Patient was stabilized and the following medications: Abilify 5 mg daily for mood stabilization Xanax was discontinued Klonopin was started at 1 mg 3 times a day for anxiety Trazodone was slowly titrated up to 150 mg at the nighttime for depression and insomnia Ambien 10 mg at the nighttime as needed for insomnia Patient is worried that medications well, no side effects observed or reported, aims 0, no EPS. Over the course of this hospitalization pt was attending groups, pt also had medication management, had therapeutic milieu. Overall pt improved significantly, pt's affect became brighter, pt was less depressed, has realistic future oriented plans, pt also does not appear to be psychotic, or anxious, pt was socially appropriate, no behavioral issues, pts insight improved as well and soon pt deemed to be ready for discharge. At the time of the discharge patient pose no imminent danger to self or others, will be following up with his private psychiatrist at [facility], information about follow up appointment, time and address provided to the pt, (see SW note for more detailed information). It is a patient responsibility to follow up with outpatient clinic, PMD as well as specialists In case patient will need to obtain results of studies pending at discharge, patient was provided with contact information of Psychiatric Inpatient unit [phone] as well as Medical Record Department [phone], as well as [facility] team [phone]. Patient denied using drugs, denied alcohol consumption, denied smoking pt was provided with prescriptions see medication reconciliation form Pt was educated about safety plan in case of worsening of symptoms or in case of suicidal or homicidal ideation call 911 or go to the nearest ER, also was educated to take meds as prescribed and stay away from drugs, pt verbalized understanding. 10/19/18 08:40 10/19/18 08:40 Lab Results 10/20/18 07:15: TSH 3rd Generation 2.08 10/20/18 07:15: Fasting Glucose 110, Triglycerides 113, Cholesterol 185, LDL Cholesterol Direct 119, HDL Cholesterol 38 10/19/18 09:10: Urine Opiates Screen Negative, Urine Methadone Screen Negative, Ur Barbiturates Screen Negative, Ur Phencyclidine Scrn Negative, Ur Amphetamines Screen Negative, U Benzodiazepines Scrn Positive H, U Oth Cocaine Metabols Negative, U Cannabinoids Screen Negative 10/19/18 09:10: Urine Color Yellow, Urine Appearance Clear, Urine pH 6.0, Ur Specific [place] 1.010, Urine Protein Negative, Urine Glucose (UA) Negative, Urine Ketones Negative, Urine Blood Negative, Urine Nitrate Negative, Urine Bilirubin Negative, Urine Urobilinogen 0.2, Ur Leukocyte Esterase Negative 10/19/18 08:40: Alcohol, Quantitative < 10 10/19/18 08:40: Salicylates < 1 L, Acetaminophen < 10.0 L 10/19/18 08:40: Sodium 137, Potassium 4.3, Chloride 102, Carbon Dioxide 25, Anion Gap 15, BUN 12, Creatinine 0.9, Est GFR ( Amer) > 60, Est GFR (Non- Af Amer) > 60, Random Glucose 122 H, Calcium 9.2, Magnesium 2.2, Total Bilirubin 0.3, AST 18, ALT 13, Alkaline Phosphatase 28 L, Total Protein 7.6, Albumin 4.2, Globulin 3.3, Albumin/Globulin Ratio 1.3 10/19/18 08:40: WBC 6.8, RBC 4.89, Hgb 14.0, Hct 41.8 L, MCV 85.5, MCH 28.6, MCHC 33.5, RDW 12.4, Plt Count 250, MPV 9.5, Neut % (Auto) 68.1 H, Lymph % (Auto) 22.4, Green % (Auto) 8.5 H, Eos % (Auto) 0.7 L, Baso % (Auto) 0.3, Lymph # (Auto) 1.5, Green # (Auto) 0.6, Eos # (Auto) 0.1, Baso # (Auto) 0.02, Absolute Neuts (auto) 4.63 Vital Signs Temp Pulse Resp BP Pulse Ox 10/20/18 08:44 56 L 112/79 10/20/18 07:15 97.7 F 56 L 20 112/79 10/19/18 16:00 74 107/69 10/19/18 15:16 76 132/98 H 10/19/18 11:20 97.9 F 76 18 132/98 H 98 10/19/18 10:45 78 18 121/76 99 10/19/18 09:59 86 18 123/75 100 10/19/18 08:24 98 F 92 H 18 99 - Diagnosis (1) Anxiety disorder due to general medical condition with panic attack Current Visit: No Status: Chronic Priority: Medium (2) Major depression Current Visit: No Status: Chronic Priority: High - Final Diagnosis (DSM 5) Condition upon Discharge: GOOD Disposition: HOME/ ROUTINE Follow-up Treatment Plan: At the time of the discharge patient pose no imminent danger to self or others, will be following up with his private psychiatrist at [facility] , information about follow up appointment, time and address provided to the pt, (see SW note for more detailed information). It is a patient responsibility to follow up with outpatient clinic, PMD as well as specialists In case patient will need to obtain results of studies pending at discharge, nikolas young was provided with contact information of Psychiatric Inpatient unit [phone] as well as Medical Record Department [phone], as well as [facility] team [phone]. Patient denied using drugs, denied alcohol consumption, denied smoking pt was provided with prescriptions see medication reconciliation form Pt was educated about safety plan in case of worsening of symptoms or in case of suicidal or homicidal ideation call 911 or go to the nearest ER, also was educated to take meds as prescribed and stay away from drugs, pt verbalized understanding. Prescriptions/Medication Reconciliation: amLODIPine [Norvasc] 5 mg PO DAILY #7 tab ARIPiprazole [Abilify] 5 mg PO DAILY #7 tab clonazePAM [Klonopin] 1 mg PO TID #45 tab Docusate [Colace] 100 mg PO TID #21 cap Famotidine [Pepcid] 40 mg PO HS #7 tab Pantoprazole [Protonix EC Tab] 40 mg PO ACB #7 ect Polyethylene Glycol 3350 [Miralax] 17 gm PO DAILY #7 packet Trazodone HCl 150 mg PO HS #14 tablet Zolpidem [Ambien] 10 mg PO HS PRN #14 tab PRN Reason: Insomnia - Tobacco Cessation Tobacco Use Status for the last 30 days: Non User Tobacco Use Treatment Practical Counseling Provided: No Tobacco Use Treatment FDA-Approved Cessation Medication Provided: No Smoking Cessation Prescription was given: No If no, reason for not providing: Patient does not smoke - Alcohol or Substance Abuse Does the patient have an Alcohol or Substance Abuse Disorder: No A prescription for an FDA-approved medication for alcohol and drug dependence was given to the patient at discharge: No If no,reason for not providing: Patient does not use drugs - Antipsychotic Medications Pt discharged on 2 or more routine antipsychotic medications: No
--- NOTE | 2018-10-26 16:15 | PN ---
DATE: 10/26/2018 REASON FOR CONSULTATION AND FOLLOWUP: Cardiac evaluation, multiple risk factors of coronary artery disease, cardiac evaluation suggested. SUBJECTIVE: The patient denies any chest pain, shortness of breath, any palpitation. OBJECTIVE: GENERAL: Not in apparent distress. VITAL SIGNS: Temperature is afebrile. Heart rate 50 and blood pressure 108/74. HEENT: PERRLA. Extraocular muscles intact. NECK: Supple. No carotid bruits. No thyromegaly. CHEST: Clear to auscultation. HEART: S1 and S2. Regular. ABDOMEN: Soft. EXTREMITIES: Clubbing and cyanosis negative. LABORATORY DATA: Blood workup as follows; WBC 6.8, hemoglobin 14, hematocrit 41.8, and platelet count 250. Chemistry shows sodium 130, potassium 4.6, chloride 102, carbon dioxide 25, anion gap of 15, BUN 12, and creatinine 0.9. Triglycerides 113, cholesterol 185, LDL 119, HDL 38, TSH 2.09, and hemoglobin A1C 5.9. IMPRESSION: A 53-year-old male with past medical history significant for smoking. History of cardiac catheterization on 05/09/2018; unremarkable coronary artery, ejection fraction dated 05/09/[address] Granado followed by the patient had echocardiography on 06/17/2018 that revealed normal left ventricular ejection fraction 55%, trace aortic regurgitation, no evidence of mitral valve prolapse noted. The patient had a stress test on 06/17/2017 that shows ejection fraction 58%; normal study in comparison to the last study on 06/19/2015, no significant change. The patient had a repeat echocardiography on 10/22/2018 that revealed ejection fraction 65%, normal chamber size, trace mitral regurgitation, trivial aortic regurgitation, trivial pulmonary insufficiency, trace to mild tricuspid regurgitation, and right ventricular systolic pressure 30. No pericardial effusion. RECOMMENDATIONS: Continue aggressive medical treatment. No further cardiac workup is warranted at this time. Continue aggressive medical treatment. We will follow with you. Upon discharge, the patient has a choice to go to Dr. Kenny Granado or Dr. Gandhi. The patient used to go for follow, initially followed with Dr. Granado, then left him and went to Dr. Gandhi. Now, he left him and wanted to see us. So, option given to the patient that needed to be followed up. Thank you Dr. Flores for providing us the opportunity in taking care of the patient, Bola Dockery. Aggressive medical treatment recommended. Shalonda Conrad MD cc: Valeria Flores MD
== END 2018-10-26 15:55 | disposition home or self-care (01) | DRG 885 ==
LOC: ED 08:17 → ERH 09:57 → PSYC 11:19
PROVIDERS: ADMIT Psychiatry & Neurology Psychiatry; ATTEND Psychiatry & Neurology Psychiatry
PROC: GZ3ZZZZ Medication Management (ICD-10-PCS; principal; 2018-10-19)
DX: F32.2 Major depressive disorder, single episode, severe without psychotic features (principal); F41.0 Panic disorder [episodic paroxysmal anxiety]; F06.4 Anxiety disorder due to known physiological condition; I10 Essential (primary) hypertension; G89.29 Other chronic pain; M54.9 Dorsalgia, unspecified; F51.04 Psychophysiologic insomnia; K29.50 Unspecified chronic gastritis without bleeding; E78.00 Pure hypercholesterolemia, unspecified; K44.9 Diaphragmatic hernia without obstruction or gangrene; K21.0 Gastro-esophageal reflux disease with esophagitis; K58.1 Irritable bowel syndrome with constipation; Z87.891 Personal history of nicotine dependence